=== PATIENT | male | born 1955 | race Caucasian/White ===

== ENCOUNTER 2022-06-16 09:28 | Emergency (ER) | payer MEDICARE, SELFPAY ==
[2022-06-16 09:50] VITALS: BP 160/111; PULSE 68; RESP 18; TEMP 36.7; O2SAT 95
[2022-06-16 10:00] VITALS: BP 146/89
--- NOTE | 2022-06-16 10:04 | CRLHL7_ITS ---
For Patients: As a result of the Century Cures Act, medical imaging exams and procedure reports are released immediately into your electronic medical record. You may view this report before your referring provider. If you have questions, please contact your health care provider. INDICATION: Chest pain COMPARISON: 06/04/2020 TECHNIQUE: PA and lateral views of the chest were acquired FINDINGS: TUBES AND LINES: None. HEART AND MEDIASTINUM: The heart size is normal. The mediastinal contour appears normal for patient age. LUNGS AND PLEURAL SPACES: The lungs are hyperinflated but otherwise unremarkable in appearance. This may be due to COPD which should be considered in the appropriate clinical setting.The pleural spaces are unremarkable. OSSEOUS STRUCTURES: Age-appropriate appearance. No acute focal finding. IMPRESSION: Hyperinflated but otherwise unremarkable appearing lungs. Dictated by Chip Jain MD @ 06/16/2022 10:43:03 AM (Electronically Signed)
[2022-06-16 10:06] VITALS: BP 148/80; PULSE 68; RESP 18; TEMP 36.7; O2SAT 95; BMI 28.2
[2022-06-16 11:03] LABS: Basophils Percent Auto 0.5 % (0.0-3.0); Eosinophils Percent Auto 1.7 % (0.0-7.0); Hematocrit 41.1 % (37.0-53.0); Hemoglobin* 13.8 gm/dL (13.5-17.5); Immature Granulocytes Abs Auto 0.01 K/uL (0.00-0.30); Lymphocytes Percent Auto 20.4 % (20-44); Mean Corpuscular HGB Conc 34 gm/dL (32-36); Mean Corpuscular Hemoglobin 31 pg (26-34); Mean Corpuscular Volume 91 fL (80-100); Monocytes Percent Auto 12.9 % (0.0-11.0); Neutrophils Percent Auto 64.3 % (42.0-72.0); Platelet Count* 149 K/uL (140-440); RDW Coefficient of Variation % 13.5 % (11.5-15.5); Red Blood Count 4.53 m/uL (4.30-5.90); White Blood Count* 4.11 K/uL (4.50-11.00)
[2022-06-16 11:09] LABS: Slide Review Reflex No
[2022-06-16 11:23] LABS: INR 1.01 (0.91-1.10); Prothrombin Time 13.7 Seconds
[2022-06-16 11:24] LABS: Chloride* 106 mmol/L (96-114); Partial Thromboplastin Time* 29 Seconds (23-33); Potassium* 4.7 mmol/L (3.6-5.1); Sodium* 137 mmol/L (135-149)
[2022-06-16 11:26] LABS: D Dimer Quantitative* 0.83 ug/ml (0.00-0.50)
[2022-06-16 11:27] LABS: Blood Urea Nitrogen* 16 mg/dL (7-30); Calcium* 8.8 mg/dL (8.4-10.6); Carbon Dioxide* 25 mmol/L (20-32); Creatinine* 0.9 mg/dL (0.5-1.5); Est. Creatinine Clearance* 85.63; Estimated Glomerular Filt Rate 95 ml/min; Glucose* 104 mg/dL (60-115)
[2022-06-16 11:30] VITALS: BP 134/86
[2022-06-16 11:37] LABS: NT Pro B Type NatriureticPept* 55 PG/mL (0-125)
[2022-06-16 11:42] LABS: PCR FLU A Negative PCR FLU A (Negative); PCR FLU B Negative PCR FLU B (Negative); PCR RSV Negative PCR RSV (Negative)
[2022-06-16 11:51] LABS: SARS PCR* Negative SARS-CoV-2 (Negative)
[2022-06-16 12:00] VITALS: BP 131/85
--- NOTE | 2022-06-16 12:21 | CRLHL7_ITS ---
For Patients: As a result of the Century Cures Act, medical imaging exams and procedure reports are released immediately into your electronic medical record. You may view this report before your referring provider. If you have questions, please contact your health care provider. INDICATION: Chest pain and elevated D-dimer TECHNIQUE: CT chest PE was acquired with 111 cc Isovue 370 intravenous contrast. COMPARISON: Chest CT 06/04/2020 FINDINGS: Heart and vasculature: Contrast opacification of the pulmonary arterial tree is adequate. No sign of pulmonary embolism. Ascending thoracic aorta measures 4.2 centimeters. No pericardial effusion. Lungs and pleural: No suspicious nodules or infiltrates. No pleural effusions, pleural thickening, or pneumothorax. Lymph nodes/mediastinum: No mediastinal, hilar, or axillary adenopathy. Chest wall: No masses. Upper abdomen: Cholelithiasis without pericholecystic inflammation. Stable 8 millimeter hypodense hepatic lesion right lobe. Bones: Mild degenerative disc disease thoracic spine. IMPRESSION: 1. No evidence of pulmonary embolus. 2. Mild fusiform enlargement of the ascending thoracic aorta at 4.2 centimeters, minimally increased from the prior exam (prior 4.0 cm). 3. Cholelithiasis without CT evidence of cholecystitis. Please note that all CT scans at this facility use dose modulation, iterative reconstruction, and/or weight-based dosing when appropriate to reduce radiation dose to as low as reasonably achievable. Dictated by Naresh Lindo MD @ 06/16/2022 2:30:47 PM (Electronically Signed)
[2022-06-16] MEDS: 0.9 % SODIUM CHLORIDE 500 ML 500 ML IV (12:53)
[2022-06-16 14:23] VITALS: BP 155/95
--- NOTE | 2022-06-16 17:18 | ED_ITS ---
HPI - Chest Pain General Date Seen: 06/16/22 Chief Complaint: Chest Pain Stated Complaint: Heart issues--high bp, tightness in chest Time Seen by Provider: 06/16/22 09:53 Source: patient Mode of arrival: ambulatory Limitations: no limitations History of Present Illness HPI narrative: Mr. Miller is a very nice gentleman who presents here for evaluation of left- sided arm discomfort, and some chest fluttering this that he has had. Noted last night that he had the left arm discomfort approximately 4:00 a.m., along with aflutter anus that comes and goes in his chest. He has actually had the fluttering is for 2-3 days, always associated with him not doing anything, never associated with exertion. He has had previous workups for chest pain had been negative, he has no personal history of cardiac stenting, or cardiac issues. Risk factors are really minimal he has never before smoke, no hypertension, no diabetes, no hyperlipidemia, and no family history of issues. No personal hist ory is of note of pulmonary emboli DVTs or other issues also. This came on while he was sleeping, and there is no exertion associated with this. He does however have a history of left-sided arm discomfort, that he has been working with a emr trainer, and wonders if this might be secondary to this. Related Data Home Medications Medication Instructions Recorded Confirmed atorvastatin 20 mg tablet mg 06/16/22 bupropion HCl 150 mg 24 hr tablet, mg PO 06/16/22 extended release fluoxetine 20 mg capsule mg 06/16/22 gabapentin 300 mg capsule mg 06/16/22 multivitamin 1 tab PO DAILY 06/16/22 06/16/22 omega-3 fatty acids 500 mg PO DAILY 06/16/22 06/16/22 oxycodone 5 mg tablet (Roxicodone) 5 mg PO Q4-6H PRN 06/16/22 06/16/22 rizatriptan 10 mg tablet (Maxalt) 10 mg PO Q2-4H PRN 06/16/22 06/16/22 Allergies Allergy/AdvReac Type Severity Reaction Status Date / Time No Known Drug Allergies Allergy Verified 06/16/22 10:02 Review of Systems Status of ROS Reports: 10 or more systems reviewed and unremarkable except as noted in History and below PFSH PFSH Social History Smoking Status: Never smoker Do you use any of these nicotine containing products: None Second hand tobacco smoke exposure: No How often do you have a drink containing alcohol: never How often do you have six or more drinks on one occasion: Never AUDIT-C Alcohol total score: 0 Non-prescribed substance use: denies use service: No Exam Narrative Exam Narrative: Patient is a very nice gentleman in no apparent distress, pupils are equal round reactive to light, he is oriented x3, cranial nerves 3-12 are normal, TMs normal oropharynx normal, neck is supple, JVP is flat carotid upstrokes are equal, there is no lymphadenopathy anterior posterior chains. Chest is good air entry bilaterally no wheezing crackles noted easy respirations are noted. Heart sounds no clicks murmurs or gallops, S1-S2 are normal. His abdomen is soft and obese, he is easily freely reducible umbilical hernia, but otherwise normal. With normal bowel sounds no organomegaly, and no tenderness to palpation. He has no edema bilaterally, normal muscle bulk is upper lower extremities, was all extremities independently and well. With no palpable tenderness noted over his left arm. Const Vital Signs, click to edit/add: Vital Signs - 24 hr 06/16/22 10:06 06/16/22 09:50 06/16/22 10:00 Temperature 98.0 F 98.0 F Pulse Rate [Right Pulse Oximeter] 68 68 Respiratory Rate 18 18 Blood Pressure [Right Upper Arm] 148/80 H 160/111 H 146/89 H Pulse Oximetry 95 95 Oxygen Delivery Method Room Air Room Air 06/16/22 11:30 06/16/22 12:00 06/16/22 14:23 Temperature Pulse Rate [Right Pulse Oximeter] Respiratory Rate Blood Pressure [Right Upper Arm] 134/86 131/85 155/95 H Pulse Oximetry Oxygen Delivery Method Course Vital Signs Vital signs: Initial Vital Signs Temperature 98.0 F 06/16/22 09:50 Temperature Source Temporal Artery Scan 06/16/22 09:50 Pulse Rate 68 06/16/22 09:50 Respiratory Rate 18 06/16/22 09:50 Blood Pressure 160/111 H 06/16/22 09:50 Blood Pressure Mean 127 06/16/22 09:50 Blood Pressure Position Sitting 06/16/22 09:50 Pulse Oximetry 95 06/16/22 09:50 Oxygen Delivery Method 06/16/22 09:50 Vital Signs Temperature 98.0 F 06/16/22 09:50 Pulse Rate 68 06/16/22 09:50 Respiratory Rate 18 06/16/22 09:50 Blood Pressure 160/111 H 06/16/22 09:50 Pulse Oximetry 95 06/16/22 09:50 Oxygen Delivery Method 06/16/22 09:50 Temperature 98.0 F 06/16/22 10:06 Pulse Rate 68 06/16/22 10:06 Respiratory Rate 18 06/16/22 10:06 Blood Pressure 155/95 H 06/16/22 14:23 Pulse Oximetry 95 06/16/22 10:06 Oxygen Delivery Method 06/16/22 10:06 MDM - Chest Pain MDM Narrative Medical decision making narrative: During the evaluation of this patient I considered multiple differential diagnosis is. The life-threatening differential diagnosis include coronary disease/OR, pulmonary embolism, pneumothorax, pneumonia, and aortic dissection. Other differential diagnosis included but were not limited to pericarditis, myocarditis, chest wall pain, GERD, esophageal rupture, rib fracture contusion, pleurisy, as well as other etiologies. Medical Records Data Attestation: I reviewed the patient's medical records. Lab Data Attestation: I reviewed the patient's lab results. Labs: Lab Results 06/16/22 06/16/22 06/16/22 Range/Units 10:06 10:45 10:45 WBC 4.11 L (4.50-11.00) K/uL RBC 4.53 (4.30-5.90) m/uL Hgb 13.8 (13.5-17.5) gm/dL Hct 41.1 (37.0-53.0) % MCV 91 (80-100) fL MCH 31 (26-34) pg MCHC 34 (32-36) gm/dL RDW Coeff of Gucci 13.5 (11.5-15.5) % Plt Count 149 (140-440) K/uL Neut % (Auto) 64.3 (42.0-72.0) % Lymph % (Auto) 20.4 (20-44) % [place] % (Auto) 12.9 H (0.0-11.0) % Eos % (Auto) 1.7 (0.0-7.0) % Baso % (Auto) 0.5 (0.0-3.0) % Neut # (Auto) 2.60 (1.7-7.0) K/uL Lymph # (Auto) 0.80 L (0.90-2.90) K/uL [place] # (Auto) 0.50 (0.00-0.90) K/UL Eos # (Auto) 0.10 (0.00-0.50) K/uL Baso # (Auto) 0.00 (0.00-0.30) K/uL Abs Immat Gran (auto) 0.01 (0.00-0.30) K/uL INR 1.01 (0.91-1.10) APTT 29 (23-33) Seconds D-Dimer Quant (PE/DVT) 0.83 H (0.00-0.50) ug/ml Sodium (135-149) mmol/L Potassium (3.6-5.1) mmol/L Chloride (96-114) mmol/L Carbon Dioxide (20-32) mmol/L BUN (7-30) mg/dL Creatinine (0.5-1.5) mg/dL Estimated Creat Clear Estimated GFR ml/min Glucose (60-115) mg/dL Calcium (8.4-10.6) mg/dL NT-Pro-B Natriuret Pep (0-125) PG/mL SARS-CoV-2 (PCR) (Negative) Influenza Type A (PCR) (Negative) Influenza Type B (PCR) (Negative) RSV (PCR) (Negative) POC Troponin I 0.00 L (0.01-0.04) ng/ml 06/16/22 06/16/22 Range/Units 10:45 10:45 WBC (4.50-11.00) K/uL RBC (4.30-5.90) m/uL Hgb (13.5-17.5) gm/dL Hct (37.0-53.0) % MCV (80-100) fL MCH (26-34) pg MCHC (32-36) gm/dL RDW Coeff of Gucci (11.5-15.5) % Plt Count (140-440) K/uL Neut % (Auto) (42.0-72.0) % Lymph % (Auto) (20-44) % [place] % (Auto) (0.0-11.0) % Eos % (Auto) (0.0-7.0) % Baso % (Auto) (0.0-3.0) % Neut # (Auto) (1.7-7.0) K/uL Lymph # (Auto) (0.90-2.90) K/uL [place] # (Auto) (0.00-0.90) K/UL Eos # (Auto) (0.00-0.50) K/uL Baso # (Auto) (0.00-0.30) K/uL Abs Immat Gran (auto) (0.00-0.30) K/uL INR (0.91-1.10) APTT (23-33) Seconds D-Dimer Quant (PE/DVT) (0.00-0.50) ug/ml Sodium 137 (135-149) mmol/L Potassium 4.7 (3.6-5.1) mmol/L Chloride 106 (96-114) mmol/L Carbon Dioxide 25 (20-32) mmol/L BUN 16 (7-30) mg/dL Creatinine 0.9 (0.5-1.5) mg/dL Estimated Creat Clear 85.63 Estimated GFR 95 ml/min Glucose 104 (60-115) mg/dL Calcium 8.8 (8.4-10.6) mg/dL NT-Pro-B Natriuret Pep 55 (0-125) PG/mL SARS-CoV-2 (PCR) Negative SARS-CoV-2 (Negative) Influenza Type A (PCR) Negative PCR FLU A (Negative) Influenza Type B (PCR) Negative PCR FLU B (Negative) RSV (PCR) Negative PCR RSV (Negative) POC Troponin I (0.01-0.04) ng/ml Imaging Data CT scan - chest: Attestation: I have reviewed the pertinent imaging results. My impression: CT scan of his chest showed no acute findings, his aorta was slightly increased in size from 4.0 cm to 4.2 cm. Radiologist's impression: See Radiology impression nothing acute, I did tell him about the enlarged aorta that he needs to follow up with primary care with. Discharge Plan Discharge Clinical Impression: Atypical chest pain Patient Disposition: Home, Self-Care Condition: Stable Instructions: Chest Pain (DC) Additional Instructions: There is no evidence of pulmonary embolus or blood clot on the CT, all your lab tests are otherwise normal. The CT scan did show that there has been some mild enlargement of your aorta from 4.0-4.2, we typically watch this and follow-up CTs, with Cardiology. I would recommend you discussed with the primary care physician, return here for worsening signs and symptoms, but I wonder about more of arms issue associated with the pain that you had. Prescriptions: No Action atorvastatin 20 mg tablet Label Comments: TAKE 1 TABLET (20 MG) BY MOUTH ONCE DAILY. gabapentin 300 mg capsule Label Comments: TAKE 1 CAPSULE(S) BY MOUTH 3 TIMES DAILY FOR 90 DAYS fluoxetine 20 mg capsule Label Comments: TAKE 2 CAPSULE(S) BY MOUTH ONCE DAILY FOR 90 DAYS bupropion HCl 150 mg tablet extended release 24 hr PO Label Comments: TAKE 2 TABLET(S) BY MOUTH ONCE DAILY FOR 90 DAYS oxycodone [Roxicodone] 5 mg tablet 5 mg PO Q4-6H PRN rizatriptan [Maxalt] 10 mg tablet 10 mg PO Q2-4H PRN Rx Instructions: do not exceed 3 doses per 24 hrs multivitamin Tablet 1 tab PO DAILY omega-3 fatty acids Capsule 500 mg PO DAILY Follow Up/Referrals: Sanya Shah MD [Primary Care Provider] - Stand Alone Forms: [employer] Info Instructions
== END 2022-06-16 15:19 | disposition home or self-care (01) ==
PROVIDERS: Emergency Provider Family Medicine; PCP Family Medicine
DX: R07.89 Other chest pain (principal); Z13.0 Encounter for screening for diseases of the blood and blood-forming organs and certain disorders involving the immune mechanism
CPT/HCPCS: 36415; 71046; 71260; 80048; 83880; 84484; 85025; 85379; 85610; 85730; 87502; 87634; 87635; 93005; 96360; 99284; J7120; Q9967

== ENCOUNTER 2022-08-03 07:52 | Outpatient (CLI) | payer MEDICARE, SELFPAY ==
--- NOTE | 2022-08-03 09:35 | W.ANESCHARGE ---
Anesthesia Charges Start Date/Time Anesthesia Start Date: 08/03/22 Anesthesia Start Time: 09:05 Stop Date/Time Anesthesia Stop Date: 08/03/22 Anesthesia Stop Time: : Summary Emergency: No
--- NOTE | 2022-08-03 09:38 | W.ANESCHARGE ---
Anesthesia Charges Start Date/Time Anesthesia Start Date: 08/03/22 Anesthesia Start Time: 09:05 Stop Date/Time Anesthesia Stop Date: 08/03/22 Anesthesia Stop Time: : Summary Emergency: No
== END 2022-08-03 07:53 | disposition home or self-care (01) ==
LOC: OP CLINIC 07:52
PROVIDERS: PCP Family Medicine; Visit Provider Internal Medicine Gastroenterology
DX: Z12.11 Encounter for screening for malignant neoplasm of colon (principal); K62.1 Rectal polyp; K57.30 Diverticulosis of large intestine without perforation or abscess without bleeding; Q43.8 Other specified congenital malformations of intestine; Z98.0 Intestinal bypass and anastomosis status
CPT/HCPCS: 00811; 45385; 88305

== ENCOUNTER 2022-08-06 06:59 | Outpatient (CLI) | payer MEDICARE, SELFPAY ==
--- NOTE | 2022-08-06 07:15 | CRLHL7_ITS ---
For Patients: As a result of the Century Cures Act, medical imaging exams and procedure reports are released immediately into your electronic medical record. You may view this report before your referring provider. If you have questions, please contact your health care provider. INDICATION: Pain. Assess for bursitis. COMPARISON: MRI 20 January 2021. TECHNIQUE: Axial PD and T2, coronal PD and STIR and sagittal PD and T2 left shoulder sequences. FINDINGS: Rotator cuff: Full-thickness tear of the supraspinatus retracted just over 3 cm with a tapered appearance of the proximal retracted tendon margin. Full-thickness tearing in the proximal half to 2/3 of the infraspinatus within distal remnant prominently thinned from marginal degenerative tearing. Relatively normal caliber posterior 3rd throughout. Some mucoid intermediate signal tendinosis in the substance and articular surface posteriorly. Intact teres minor. Prominent tendinopathy and interstitial tearing in the subscapularis. Grade 2 muscle atrophy infraspinatus. Grade 1 muscle atrophy supraspinatus. - Acromioclavicular joint and coracoacromial arch: Curved type 2 acromial undersurface. Acromial humeral distance mildly narrowed to 5 mm due to slight superior subluxation humeral head. Mild to near moderate degenerative arthrosis of the AC joint. Small effusion but no inferior osteophyte. No clavicular dislocation or fracture. Subcoracoid interval is patent. - Biceps labral complex: Some minor degenerative blunting and volume loss in the inferior, posterior and a lesser degree superior labrum. No linear tear or displaced labral tissue. Intact biceps anchor. Appropriately located biceps tendon. Fluid in the tendon sheath. - Glenohumeral joint: Minor superior subluxation. Heterogeneous signal and irregular grade 2 thinning and grade 3 to grade 4 fissuring inferior glenoid margin with subchondral cysts at the anterior inferior margin. Small effusion. No capsulitis. - Bones and soft tissues: Thin line of fluid and synovitis in the subacromial/subdeltoid bursa. Deltoid bulk and signal normal for age and body habitus. Glenoid version is neutral. Visualized axilla is clear. IMPRESSION: 1. Interval development of full-thickness tearing of supraspinatus and majority of the infraspinatus. Superior subluxation humeral head. Atrophy of infraspinatus greater than supraspinatus. 2. Progressive tendinopathy and interstitial low grade tearing subscapularis. 3. Mild chronic AC DJD. 4. Progressed glenohumeral osteoarthritis. 5. Increased degenerative marginal tearing of the labrum. Dictated by Mark Dow MD @ 08/06/2022 2:02:56 PM (Electronically Signed)
== END 2022-08-06 07:00 | disposition home or self-care (01) ==
LOC: MRI 07:00
PROVIDERS: PCP Family Medicine; Visit Provider Family Medicine
DX: M75.52 Bursitis of left shoulder (principal); M19.012 Primary osteoarthritis, left shoulder; S49.92XS Unspecified injury of left shoulder and upper arm, sequela; S43.402A Unspecified sprain of left shoulder joint, initial encounter
CPT/HCPCS: 73221

== ENCOUNTER 2022-09-08 08:21 | Observation (INO) | payer MEDICARE, SELFPAY ==
[2022-09-08] VITALS (13 sets, daily range): BP systolic 98–150; BP diastolic 53–89; PULSE 71–85; RESP 16–20; TEMP 37.1–37.9; O2SAT 95–98; BMI 47.5
--- NOTE | 2022-09-08 09:19 | ED_ITS ---
HPI - General Adult General Time Seen by Provider: 09:19 Date Seen: 09/08/22 Chief complaint: Extremity Pain/Injury, Lower Stated complaint: Infection left leg Time Seen by Provider: 09/08/22 09:19 Source: patient and RN notes reviewed Mode of arrival: ambulatory Limitations: no limitations History of Present Illness HPI narrative: Patient is a 67-year-old male coming in with concern of fever and possible cellulitis of his left lower extremity. He stepped on a nail in the center of the ball of his foot on Wednesday, 2 days ago. Started having fevers last night. He has warmth in his left calf that is concerning him for cellulitis. He states he has had a history of cellulitis before. There is pain, redness and warmth in his left posterior calf. Not so much pain in the foot. He also has had some respiratory symptoms. He started with a sore throat on . Was in to the clinic on Wednesday and saw Dr. Shah for a preoperative evaluation for upcoming left rotator cuff repair. This surgery is supposed to happen September 15. He started coughing on Wednesday. At this appointment, his lungs were clear, no further testing was done. He has started to cough up mucus. Again fever started last night. He is complaining of significant left shoulder pain. This is the shoulder that is affected. He is off ibuprofen in off his oxycodone prior to the surgery. No known history of thromboembolic disease before but does note that he has had cellulitis in his legs before. Last Tdap in records 05/23/2020. Related Data Home Medications Medication Instructions Recorded Confirmed atorvastatin 20 mg tablet 40 mg 06/16/22 09/02/22 bupropion HCl 150 mg 24 hr tablet, 150 mg PO 06/16/22 09/02/22 extended release fluoxetine 20 mg capsule 20 mg 06/16/22 09/02/22 gabapentin 300 mg capsule 300 mg TID 06/16/22 09/02/22 multivitamin 1 tab PO DAILY 06/16/22 09/02/22 oxycodone 5 mg tablet (Roxicodone) 5 mg PO Q4-6H PRN 06/16/22 09/02/22 rizatriptan 10 mg tablet (Maxalt) 10 mg PO Q2-4H PRN 06/16/22 09/08/22 Previous Rx's Medication Instructions Recorded celecoxib 100 mg capsule (Celebrex) 100 mg PO BID PRN pain #60 caps 08/25/22 amoxicillin 875 mg tablet 875 mg PO BID 10 days #20 tabs 09/08/22 doxycycline monohydrate 100 mg 100 mg PO BID 10 days #20 tabs 09/08/22 tablet Allergies Allergy/AdvReac Type Severity Reaction Status Date / Time No Known Drug Allergies Allergy Verified 09/08/22 08:54 Review of Systems Status of ROS: Reports: 10 or more systems reviewed and unremarkable except as noted in History and below [facility] Medical History Depression GERD (gastroesophageal reflux disease) High cholesterol MRSA (methicillin resistant staph aureus) culture positive Sleep apnea Surgical History History of appendectomy History of carpal tunnel surgery of left wrist (10/08/04) History of elbow surgery (02/29/20) History of left knee replacement History of surgery on arm Previous back surgery S/P left knee arthroscopy (01/25/08) S/P ORIF (open reduction internal fixation) fracture (08/07/19) S/P right knee arthroscopy (06/23/06) Status post right knee replacement Social History Smoking Status: Light tobacco smoker What tobacco products do you use: cigars and pipe Do you use any of these nicotine containing products: None Second hand tobacco smoke exposure: No How often do you have a drink containing alcohol: monthly or less How often do you have six or more drinks on one occasion: Never AUDIT-C Alcohol total score: 1 Non-prescribed substance use: denies use service: No Exam Const: Vital Signs, click to edit/add: Vital Signs - 24 hr 09/08/22 08:51 09/08/22 09:37 09/08/22 09:37 Temperature 99.2 F Pulse Rate [Pulse Oximeter] 81 72 Respiratory Rate 16 16 Blood Pressure [Ri ght Upper Arm] 135/85 117/74 Pulse Oximetry 97 96 96 Oxygen Delivery Me thod Room Air Room Air 09/08/22 11:07 09/08/22 12:00 Temperature 98.8 F Pulse Rate [Pulse Oximeter] 85 73 Respiratory Rate 16 16 Blood Pressure [[facility] Upper Arm] 120/79 112/69 Pulse Oximetry 98 98 Oxygen Delivery Me thod Room Air Room Air Documenting provider has reviewed patient's vital signs: yes Common normals: no apparent distress, oriented x3, no limitations, healthy appearing and alert General appearance: cooperative and well kempt Nutritional appearance: obese Other: Seems to have discomfort with movement, states it is in his left shoulder. HENMT: Common normals: normocephalic, head/scalp atraumatic, hearing grossly normal bilaterally, external ears normal, external nose normal, nasal mucous membranes and turbinates normal, moist oral mucous membranes, oropharynx normal, dentition normal and gingiva normal Head and scalp: normocephalic and atraumatic Nose: external nose normal and nasal mucous membranes and turbinates normal External ear: external ears normal Eye: Common normals: PERRL, EOMs intact bilaterally, conjunctivae normal and no scleral icterus Conjunctiva: conjunctiva(e) normal Pupil: PERRL Neck & C-Spine: Common normals: full ROM (Has a thick neck), no lymphadenopathy, supple and no meningeal signs Chest: Common normals: inspection of chest normal Resp: Common normals: normal respiratory effort, no retractions, no use of accessory muscles and clear to auscultation bilaterally Auscultation: clear to auscultation bilaterally Cardio: Common normals: regular rate, regular rhythm, S1 normal heart sound, S2 normal heart sound, no gallops, no clicks, no murmurs and no rub Rate: regular rate Rhythm: regular rhythm Heart sounds: S1 normal and S2 normal GI: Common normals: Normal to inspection, nondistended, normoactive bowel sounds present, soft to palpation, non-tender, no hepatosplenomegaly and no masses Palpation: soft and no hepatosplenomegaly Extremity: Other: Has hemosiderin staining of both lower extremities, no significant pitting edema right now. Do not see any erythema over the plantar surface of his left foot. On the posterior aspect of his left calf, there is erythema and warmth, some tenderness. No vesicles. Lower extremities just seem chronically thickened but no appreciable pitting edema that I can demonstrate today. Neuro: Common normals: oriented x3, CN's II-XII intact bilaterally, moves all extremities, no focal motor deficits and no sensory deficits noted Sensorium/orientation: alert Meningeal signs: no meningeal signs Psych: Appearance: well kempt Course Course Hospital Course: Fever could certainly stemming from a cellulitis or upper respiratory illness. Triple swab was collected by nursing staff and is pending. Will also do a portable chest x-ray, obtain appropriate blood work. With this left calf, will consider thrombo embolic disease and obtain a venous ultrasound. Patient at this time is hemodynamically stable. Reevaluation(s) Reevaluation #1: Reviewed with patient that his ultrasound per the welfare service aide is negative for DVT. Thus, it would appear that he has cellulitis in this left calf. He is had staph and strep infections before. He has had an infected knee joint with MRSA before, ended up with a PICC line and vancomycin. From the sounds of it this was a prosthetic knee, knee components were pulled for 3 months while he was treated. Thus, am going to start with vancomycin. Time: 11:15 Reevaluation #2: Patient feels comfortable going home, will put on oral antibiotics, plan on amoxicillin and doxycycline for coverage. Has been afebrile here. Clinically looks stable and appropriate for outpatient management at this time. He understands to elevate this leg. We did touch on his depression, lost after 4 years of pancreatic cancer, lost uncle that he was close to and another relative dying, all in this past year. He states that he has good support, acknowledges depression but is not suicidal. Taking antidepressant. Time: 12:54 Vital Signs Vital signs: Initial Vital Signs Temperature 99.2 F 09/08/22 08:51 Temperature Source Temporal Artery Scan 09/08/22 08:51 Pulse Rate 81 09/08/22 08:51 Pulse Rhythm 09/08/22 08:51 Pulse Strength 3+ Normal 09/08/22 08:51 Respiratory Rate 16 09/08/22 08:51 Blood Pressure 135/85 09/08/22 08:51 Blood Pressure Mean 101 09/08/22 08:51 Blood Pressure Position Sitting 09/08/22 08:51 Pulse Oximetry 97 09/08/22 08:51 Oxygen Delivery Method 09/08/22 08:51 Vital Signs Temperature 99.2 F 09/08/22 08:51 Pulse Rate 81 09/08/22 08:51 Respiratory Rate 16 09/08/22 08:51 Blood Pressure 135/85 09/08/22 08:51 Pulse Oximetry 97 09/08/22 08:51 Oxygen Delivery Method 09/08/22 08:51 Temperature 98.8 F 09/08/22 11:07 Pulse Rate 73 09/08/22 12:00 Respiratory Rate 16 09/08/22 12:00 Blood Pressure 112/69 09/08/22 12:00 Pulse Oximetry 98 09/08/22 12:00 Oxygen Delivery Method 09/08/22 12:00 Medical Decision Making Lab Data Lab results reviewed: Yes I reviewed the patient's lab results Labs: Lab Results 09/08/22 09/08/22 09/08/22 Range/Units 09:37 09:37 09:37 WBC 11.76 H (4.50-11.00) K/uL RBC 4.34 (4.30-5.90) m/uL Hgb 12.8 L (13.5-17.5) gm/dL Hct 38.9 (37.0-53.0) % MCV 90 (80-100) fL MCH 30 (26-34) pg MCHC 33 (32-36) gm/dL RDW Coeff of Gucci 13.4 (11.5-15.5) % Plt Count 152 (140-440) K/uL Neut % (Auto) 85.7 H (42.0-72.0) % Lymph % (Auto) 4.8 L (20-44) % [place]upe % (Auto) 9.1 (0.0-11.0) % Eos % (Auto) 0.1 (0.0-7.0) % Baso % (Auto) 0.2 (0.0-3.0) % Neut # (Auto) 10.10 H (1.7-7.0) K/uL Lymph # (Auto) 0.60 L (0.90-2.90) K/uL [place] # (Auto) 1.10 H (0.00-0.90) K/UL Eos # (Auto) 0.00 (0.00-0.50) K/uL Baso # (Auto) 0.00 (0.00-0.30) K/uL Abs Immat Gran (auto) 0.00 (0.00-0.30) K/uL Imm/Tot Granulo (auto) 0.1 % Sodium 137 (135-149) mmol/L Potassium 3.9 (3.6-5.1) mmol/L Chloride 108 (96-114) mmol/L Carbon Dioxide 23 (20-32) mmol/L BUN 14 (7-30) mg/dL Creatinine 0.8 (0.5-1.5) mg/dL Estimated Creat Clear 80.83 Estimated GFR 98 ml/min Glucose 98 (60-115) mg/dL Lactate 1.0 (0.5-1.9) mmol/L Calcium 8.5 (8.4-10.6) mg/dL C-Reactive Protein 5.6 H (0.5-1.0) mg/dL SARS-CoV-2 (PCR) (Negative) Influenza Type A (PCR) (Negative) Influenza Type B (PCR) (Negative) RSV (PCR) (Negative) 09/08/22 Range/Units Unknown WBC (4.50-11.00) K/uL RBC (4.30-5.90) m/uL Hgb (13.5-17.5) gm/dL Hct (37.0-53.0) % MCV (80-100) fL MCH (26-34) pg MCHC (32-36) gm/dL RDW Coeff of Gucci (11.5-15.5) % Plt Count (140-440) K/uL Neut % (Auto) (42.0-72.0) % Lymph % (Auto) (20-44) % [place] % (Auto) (0.0-11.0) % Eos % (Auto) (0.0-7.0) % Baso % (Auto) (0.0-3.0) % Neut # (Auto) (1.7-7.0) K/uL Lymph # (Auto) (0.90-2.90) K/uL [place] # (Auto) (0.00-0.90) K/UL Eos # (Auto) (0.00-0.50) K/uL Baso # (Auto) (0.00-0.30) K/uL Abs Immat Gran (auto) (0.00-0.30) K/uL Imm/Tot Granulo (auto) % Sodium (135-149) mmol/L Potassium (3.6-5.1) mmol/L Chloride (96-114) mmol/L Carbon Dioxide (20-32) mmol/L BUN (7-30) mg/dL Creatinine (0.5-1.5) mg/dL Estimated Creat Clear Estimated GFR ml/min Glucose (60-115) mg/dL Lactate (0.5-1.9) mmol/L Calcium (8.4-10.6) mg/dL C-Reactive Protein (0.5-1.0) mg/dL SARS-CoV-2 (PCR) Negative SARS-CoV-2 (Negative) Influenza Type A (PCR) Negative PCR FLU A (Negative) Influenza Type B (PCR) Negative PCR FLU B (Negative) RSV (PCR) Negative PCR RSV (Negative) Imaging Data Chest x-ray: Attestation: I have reviewed the pertinent imaging results. My impression: A my preliminary read, I do not appreciate any acute consolidative pneumonia or any suggestion of any congestive heart failure, await Radiology over-read. Radiologist's impression: Patient: ANDERSON MARCELINE Facility:?[facility] Patient ID:?[id number] Site Patient ID:?[id number]. Site :?[id number] Study:?XRay Chest PORTABLE-09/08/2022 10:11:30 AM Ordering Physician:?Lorraine Tovar Final Report: INDICATION: FEVER, COUGH TECHNIQUE: Chest 1 view COMPARISON: None FINDINGS: Mild bronchiolitis present bilaterally. No consolidative density. No edema or effusion. No pneumothorax. Degenerative changes. Stable mediastinum. IMPRESSION: Mild bilateral bronchiolitis. Dictated by Mahesh Schaffer MD @ 09/08/2022 10:18:36 AM (Electronic Signature) Venous US: Attestation: I have reviewed the pertinent imaging results. Radiologist's impression: Patient: [facility] Facility:?[facility] Patient ID:?[id number] Site Patient ID:?[id number]. Site :?[id number] Study:?US Extremity Left LEV-09/08/2022 10:51:13 AM Ordering Physician:?Lorraine Tovar Final Report: INDICATION: Leg pain and swelling. TECHNIQUE: Ultrasound venous duplex lower left extremity. Compression venous exam was performed using barrett-scale, color Doppler, and spectral Doppler analysis. COMPARISON: None. FINDINGS: Deep veins: Sonographic imaging demonstrates the left common femoral, deep femoral, superficial femoral, popliteal, posterior tibial and the contralateral right common femoral veins to be fully compressible with normal color Doppler blood flow. Superficial veins: Greater saphenous vein is fully compressible. No popliteal cyst. IMPRESSION: Normal left lower extremity venous ultrasound, no sign of deep venous thrombosis. Dictated by Jose L Durham MD @ 09/08/2022 11:12:20 AM (Electronic Signature) Critical Care Time Critical Care Time Critical Care Time: No Discharge Plan Discharge Clinical Impression: Upper respiratory infection, Cellulitis Condition: Stable Instructions: Cellulitis (ED), Upper Respiratory Infection (ED) Additional Instructions: Start oral antibiotics today and take as prescribed. You will be on 2 antibiotics. Doxycycline should be good coverage for any lung bacterial infection. Chest x-ray did not show any evidence of pneumonia. Need to try to elevate this leg until your symptoms are improving. Recommend follow up in clinic within the next 1-3 days for recheck, make sure that you are still ok for surgery. If you are worsening at any point, do not feel that the cellulitis is improving, need to seek re-evaluation. Activity Level: Activity as Tolerated Prescriptions: New amoxicillin 875 mg tablet 875 mg PO BID 10 Days Qty: 20 0RF doxycycline monohydrate 100 mg tablet 100 mg PO BID 10 Days Qty: 20 0RF No Action atorvastatin 20 mg tablet 40 mg Label Comments: TAKE 1 TABLET (20 MG) BY MOUTH ONCE DAILY. gabapentin 300 mg capsule 300 mg TID Label Comments: TAKE 1 CAPSULE(S) BY MOUTH 3 TIMES DAILY FOR 90 DAYS fluoxetine 20 mg capsule 20 mg Label Comments: TAKE 2 CAPSULE(S) BY MOUTH ONCE DAILY FOR 90 DAYS bupropion HCl 150 mg tablet extended release 24 hr 150 mg PO Label Comments: TAKE 2 TABLET(S) BY MOUTH ONCE DAILY FOR 90 DAYS oxycodone [Roxicodone] 5 mg tablet 5 mg PO Q4-6H PRN rizatriptan [Maxalt] 10 mg tablet 10 mg PO Q2-4H PRN Rx Instructions: do not exceed 3 doses per 24 hrs multivitamin Tablet 1 tab PO DAILY celecoxib [Celebrex] 100 mg capsule 100 mg PO BID PRN (Reason: pain) Qty: 60 1RF Follow Up/Referrals: Sanya Shah MD [Primary Care Provider] - Stand Alone Forms: Sendmebox Info Instructions
--- NOTE | 2022-09-08 09:25 | CRLHL7_ITS ---
For Patients: As a result of the Cures Act, medical imaging exams and procedure reports are released immediately into your electronic medical record. You may view this report before your referring provider. If you have questions, please contact your health care provider. INDICATION: FEVER, COUGH TECHNIQUE: Chest 1 view COMPARISON: None FINDINGS: Mild bronchiolitis present bilaterally. No consolidative density. No edema or effusion. No pneumothorax. Degenerative changes. Stable mediastinum. IMPRESSION: Mild bilateral bronchiolitis. Dictated by Mahesh Schaffer MD @ 09/08/2022 10:18:36 AM (Electronically Signed)
--- NOTE | 2022-09-08 09:29 | CRLHL7_ITS ---
For Patients: As a result of the Century Cures Act, medical imaging exams and procedure reports are released immediately into your electronic medical record. You may view this report before your referring provider. If you have questions, please contact your health care provider. INDICATION: Leg pain and swelling. TECHNIQUE: Ultrasound venous duplex lower left extremity. Compression venous exam was performed using barrett-scale, color Doppler, and spectral Doppler analysis. COMPARISON: None. FINDINGS: Deep veins: Sonographic imaging demonstrates the left common femoral, deep femoral, superficial femoral, popliteal, posterior tibial and the contralateral right common femoral veins to be fully compressible with normal color Doppler blood flow. Superficial veins: Greater saphenous vein is fully compressible. No popliteal cyst. IMPRESSION: Normal left lower extremity venous ultrasound, no sign of deep venous thrombosis. Dictated by Jose L Durham MD @ 09/08/2022 11:12:20 AM (Electronically Signed)
[2022-09-08 10:00] LABS: Basophils Percent Auto 0.2 % (0.0-3.0); Eosinophils Percent Auto 0.1 % (0.0-7.0); Hematocrit 38.9 % (37.0-53.0); Hemoglobin* 12.8 gm/dL (13.5-17.5); Immature Granulocytes Pct Auto 0.1 %; Lymphocytes Percent Auto 4.8 % (20-44); Mean Corpuscular HGB Conc 33 gm/dL (32-36); Mean Corpuscular Hemoglobin 30 pg (26-34); Mean Corpuscular Volume 90 fL (80-100); Monocytes Percent Auto 9.1 % (0.0-11.0); Neutrophils Percent Auto 85.7 % (42.0-72.0); Platelet Count* 152 K/uL (140-440); RDW Coefficient of Variation % 13.4 % (11.5-15.5); Red Blood Count 4.34 m/uL (4.30-5.90); White Blood Count* 11.76 K/uL (4.50-11.00)
[2022-09-08 10:07] LABS: Slide Review Reflex No
[2022-09-08 10:28] LABS: Chloride* 108 mmol/L (96-114); Potassium* 3.9 mmol/L (3.6-5.1); Sodium* 137 mmol/L (135-149)
[2022-09-08 10:31] LABS: Carbon Dioxide* 23 mmol/L (20-32); Creatinine* 0.8 mg/dL (0.5-1.5); Est. Creatinine Clearance* 80.83; Estimated Glomerular Filt Rate 98 ml/min
[2022-09-08 10:32] LABS: Blood Urea Nitrogen* 14 mg/dL (7-30); Calcium* 8.5 mg/dL (8.4-10.6); Glucose* 98 mg/dL (60-115)
[2022-09-08 10:35] LABS: C Reactive Protein* 5.6 mg/dL (0.5-1.0)
[2022-09-08 11:31] LABS: PCR FLU A Negative PCR FLU A (Negative); PCR FLU B Negative PCR FLU B (Negative); PCR RSV Negative PCR RSV (Negative)
[2022-09-08 11:34] LABS: SARS PCR* Negative SARS-CoV-2 (Negative)
--- NOTE | 2022-09-08 13:56 | PC.NURSE ---
Patient now has a temp of 100.2. notified. She was going to contact the hospitalist. Heads up given to HS.
[2022-09-08] MEDS: PIPERACILLIN/TAZOBACTAM 3.375 GM in 0.9 % SODIUM CHLORIDE Mini-bag 100 ML IVPB ×2 (14:49→21:19)
[2022-09-08] MEDS: ACETAMINOPHEN 325 MG TABLET 975 MG PO (14:50)
[2022-09-08] MEDS: OXYCODONE 5 MG TABLET PO ×2 (14:50→22:46)
--- NOTE | 2022-09-08 15:43 | PM.IMHP1 ---
Hospitalist- H&P: HPI History of Present Illness Date Seen: 09/08/22 Chief complaint: Infection left leg Narrative: Kori Miller is a 67 year old male with history of recurrent left leg cellulitis presents with painful red swollen left leg and fever. Patient reports that he stepped on a nail through his shoe on Wednesday, 2 days ago. Yesterday started have some discomfort in his left leg primarily the calf. Last night he had a fever and today his left calf is ring it red and painful and swollen. His foot is not bothering him particularly. The nail went through his shoe into the mid plantar foot on the left. He has neuropathy and was not aware of stepping on the nail. He only discovered it when he found a lot of blood in his shoe when he took his shoe off. For the last 5 days he has also had upper respiratory infection with cough and congestion. He thinks that is a little better today than it was over the weekend. He is pending surgery for rotator cuff repair in 1 week for his right shoulder. This is scheduled with Dr. Christianson has been notified of his current illness. He does have previous history of leg cellulitis, always in the left leg. Review of Systems Narrative: He reports no other significant health concerns recently. [facility] Medical History (Updated 09/08/22 @ 15:55 by Aiden Aldrich MD) Depression GERD (gastroesophageal reflux disease) High cholesterol MRSA (methicillin resistant staph aureus) culture positive Sleep apnea Surgical History History of appendectomy History of carpal tunnel surgery of left wrist (10/08/04) History of elbow surgery (02/29/20) History of left knee replacement History of surgery on arm Previous back surgery S/P left knee arthroscopy (01/25/08) S/P ORIF (open reduction internal fixation) fracture (08/07/19) S/P right knee arthroscopy (06/23/06) Status post right knee replacement Family History (Updated 09/08/22 @ 15:48 by Aiden Aldrich MD) Mother Breast cancer Father Alcohol dependence Coronary artery disease Brother Stroke Social History (Updated 09/08/22 @ 15:50 by Aiden Aldrich MD) Narrative: Closest family are his son Emery and daughter Sandrita. He would designate both of them is healthcare power of commercial litigation attorney. Code status is full. He drinks 3 beers per weekend. Remote history of smoking a half pack of day for 25 years. Now occasionally smokes a pipe or cigar but not every day Smoking Status: Light tobacco smoker What tobacco products do you use: cigars and pipe Do you use any of these nicotine containing products: None Second hand tobacco smoke exposure: No How often do you have a drink containing alcohol: monthly or less How often do you have six or more drinks on one occasion: Never AUDIT-C Alcohol total score: 1 Non-prescribed substance use: denies use service: No Meds Home Medications and Allergies Home Medications Medication Instructions Recorded Confirmed Type atorvastatin 20 mg tablet 40 mg PO HS 06/16/22 09/08/22 History bupropion HCl 150 mg 24 hr tablet, 300 mg PO DAILY 06/16/22 09/08/22 History extended release gabapentin 300 mg capsule 300 mg PO TID 06/16/22 09/08/22 History multivitamin 1 tab PO DAILY 06/16/22 09/08/22 History oxycodone 5 mg tablet (Roxicodone) 5 mg PO Q4-6H PRN 06/16/22 09/08/22 History rizatriptan 10 mg tablet (Maxalt) 10 mg PO Q2-4H PRN 06/16/22 09/08/22 History duloxetine 20 mg capsule,delayed 40 mg PO DAILY 09/08/22 09/08/22 History release duloxetine 60 mg capsule,delayed 60 mg PO DAILY 09/08/22 09/08/22 History release Allergies Allergy/AdvReac Type Severity Reaction Status Date / Time No Known Drug Allergies Allergy Verified 09/08/22 08:54 Exam Narrative: Exam Narrative: He is alert appears in no distress. He gives his own history. Eyes normal. Oropharynx with small airway. Otherwise normal. Neck is supple without mass or adenopathy. Respirations are clear to auscultation. Good air exchange all lung evans. Cardiovascular: S1, S2, regular rate and rhythm. No murmur gallop or rub. Abdomen: Bowel sounds active. Abdomen is soft without tenderness or mass. External genitalia normal. Extremities are normal except his left lower extremity where he has erythema over his left calf. This is a maculopapular area of erythema that extends from below the tibial tubercle over the anterior oliveros almost to the ankle. No involvement of the knee or ankle. It is tender to touch. Calf is quite tender to compression. He has mild to moderate edema. The foot itself is without erythema or tenderness. There is a puncture site in the middle of his metatarsal heads on the plantar surface. No obvious drainage or redness. Const: Vital Signs, click to edit/add: Vital Signs - 24 hr 09/08/22 08:51 09/08/22 09:37 09/08/22 09:37 Temperature 99.2 F Pulse Rate [Pulse Oximeter] 81 72 Respiratory Rate 16 16 Blood Pressure [Ri ght Upper Arm] 135/85 117/74 Pulse Oximetry 97 96 96 Oxygen Delivery Me thod Room Air Room Air 09/08/22 11:07 09/08/22 12:00 09/08/22 13:55 Temperature 98.8 F 100.2 F H Pulse Rate [Pulse Oximeter] 85 73 73 Respiratory Rate 16 16 16 Blood Pressure [Ri ght Upper Arm] 120/79 112/69 102/53 L Pulse Oximetry 98 98 98 Oxygen Delivery Me thod Room Air Room Air Room Air 09/08/22 12:30 09/08/22 13:00 09/08/22 13:30 Temperature Pulse Rate [Pulse Oximeter] 71 85 78 Respiratory Rate 16 16 16 Blood Pressure [Ri ght Upper Arm] 108/65 98/57 L 99/66 Pulse Oximetry 97 97 97 Oxygen Delivery Me thod Room Air Room Air Room Air 09/08/22 15:34 Temperature 99.4 F Pulse Rate [Pulse Oximeter] 78 Respiratory Rate 16 Blood Pressure [Ri ght Upper Arm] 113/66 Pulse Oximetry 98 Oxygen Delivery Me thod Room Air Hospitalist - H&P: Result Labs Labs: Short CBC 09/08/22 Range/Units 09:37 WBC 11.76 H (4.50-11.00) K/uL Hgb 12.8 L (13.5-17.5) gm/dL Hct 38.9 (37.0-53.0) % Plt Count 152 (140-440) K/uL BMP 09/08/22 09:37 Sodium 137 Potassium 3.9 Chloride 108 Carbon Dioxide 23 BUN 14 Creatinine 0.8 Glucose 98 Calcium 8.5 Assessment and Plan Assessment and plan (1) Cellulitis: Problem comment: Leg appears to be cellulitis typical of a strep infection without obvious purulence. The presence of a fever and a puncture wound in his foot will initiate broad-spectrum antibiotic coverage for MRSA and Pseudomonas and possibly narrow therapy depending on his response. Status: Acute (2) Puncture wound of skin from metal nail: Problem comment: Tetanus is up-to-date. Empiric initial treatment for Pseudomonas and MRSA Status: Acute (3) Upper respiratory infection: Problem comment: Improving Status: Acute (4) Arthritis of left acromioclavicular joint: Problem comment: Dr. Christianson to decide about proceeding to surgery next week. Status: Acute (5) Rotator cuff tear, left: Status: Acute (6) Sleep apnea: Problem comment: He will ask his children to bring in his CPAP Status: Acute Plan Hospitalized for IV antibiotics pending clinical improvement. Total time spent today is 70 minutes, 40 minutes in coordination of care and discussing with patient and other providers management of cellulitis, nail puncture wound, pending surgery.
--- NOTE | 2022-09-08 15:50 | ED.NURSE ---
given report to Kalpana Miller who will resume care of the this patient. plan to admit to room 258 via wc.
[2022-09-08] MEDS: GABAPENTIN 300 MG CAPSULE PO (21:19)
[2022-09-08] MEDS: ATORVASTATIN CALCIUM 40 MG TABLET PO (21:19)
[2022-09-09] VITALS (9 sets, daily range): BP systolic 116–142; BP diastolic 71–96; PULSE 74–89; RESP 14–20; TEMP 36.9–38.1; O2SAT 95–97
[2022-09-09] MEDS: ACETAMINOPHEN 325 MG TABLET 975 MG PO ×2 (00:04→21:13)
[2022-09-09] MEDS: PIPERACILLIN/TAZOBACTAM 3.375 GM in 0.9 % SODIUM CHLORIDE Mini-bag 100 ML IVPB ×4 (03:17→22:37)
--- NOTE | 2022-09-09 06:30 | PC.NURSE ---
23-07: pleasant. Indep. Calls appropriately. Left leg warm to touch, ice pack placed and pt stated relief. Wheezes auscultated, pt stated he is getting over a cold, declined need for cough syrup. Temp 99.8, Tylenol given, came down to 99.1.
[2022-09-09 07:39] LABS: Basophils Absolute Auto 0.02 K/uL (0.00-0.30); Basophils Percent Auto 0.3 % (0.0-3.0); Eosinophils Absolute Auto 0.08 K/uL (0.00-0.50); Hematocrit 36.9 % (37.0-53.0); Immature Granulocytes Abs Auto 0.01 K/uL (0.00-0.30); Immature Granulocytes Pct Auto 0.1 %; Lymphocytes Percent Auto 12.1 % (20-44); Mean Corpuscular HGB Conc 33 gm/dL (32-36); Mean Corpuscular Hemoglobin 30 pg (26-34); Mean Corpuscular Volume 92 fL (80-100); Monocytes Percent Auto 14.6 % (0.0-11.0); Neutrophils Absolute Auto 5.56 K/uL (1.7-7.0); Neutrophils Percent Auto 71.9 % (42.0-72.0); Platelet Count* 136 K/uL (140-440); RDW Coefficient of Variation % 13.4 % (11.5-15.5); Red Blood Count 4.03 m/uL (4.30-5.90); White Blood Count* 7.74 K/uL (4.50-11.00)
[2022-09-09 07:42] LABS: Slide Review Reflex No
[2022-09-09 07:56] LABS: Chloride* 109 mmol/L (96-114); Potassium* 3.9 mmol/L (3.6-5.1); Sodium* 137 mmol/L (135-149)
[2022-09-09 07:58] LABS: Creatinine* 0.9 mg/dL (0.5-1.5); Est. Creatinine Clearance* 80.83; Estimated Glomerular Filt Rate 95 ml/min
[2022-09-09 07:59] LABS: Blood Urea Nitrogen* 11 mg/dL (7-30); Carbon Dioxide* 23 mmol/L (20-32); Glucose* 99 mg/dL (60-115)
[2022-09-09 08:00] LABS: Calcium* 8.1 mg/dL (8.4-10.6)
[2022-09-09 08:02] LABS: C Reactive Protein* 8.3 mg/dL (0.5-1.0)
[2022-09-09] MEDS: GABAPENTIN 300 MG CAPSULE PO ×3 (09:41→21:13)
[2022-09-09] MEDS: MULTIVITAMIN/MINERALS 1 TABLET 1 TAB PO (09:41)
[2022-09-09] MEDS: DULOXETINE HCL 20 MG CAPSULE DR 80 MG PO (09:42)
[2022-09-09] MEDS: buPROPion XL 150 MG TABLET 300 MG PO (09:42)
[2022-09-09] MEDS: OXYCODONE 5 MG TABLET PO ×2 (11:03→20:27)
--- NOTE | 2022-09-09 11:47 | CRLHL7_ITS ---
For Patients: As a result of the Cures Act, medical imaging exams and procedure reports are released immediately into your electronic medical record. You may view this report before your referring provider. If you have questions, please contact your health care provider. INDICATION: Left calf cellulitis, rule out abscess. TECHNIQUE: Ultrasound soft tissue limited. Sonographic images of the left calf were obtained using barrett-scale and color Doppler images. COMPARISON: None available. FINDINGS/IMPRESSION: Dedicated sonographic imaging in the proximal left calf shows subcutaneous edema. No organized fluid collection/abscess is identified within the imaged subcutaneous tissues. Dictated by Altagracia Hancock MD @ 09/09/2022 4:03:26 PM (Electronically Signed)
[2022-09-09] MEDS: 0.9 % SODIUM CHLORIDE 250 ml IV (12:40)
--- NOTE | 2022-09-09 13:09 | P.IMPN_ITS ---
Progress Note: A&P Assessment and plan (1) Cellulitis: Problem details: Leg appears to be cellulitis typical of a strep infection without obvious purulence. The presence of a fever and a puncture wound in his foot will initiate broad-spectrum antibiotic coverage for MRSA and Pseudomonas and po ssibly narrow therapy depending on his response. Status: Acute (2) Puncture wound of skin from metal nail: Problem details: Tetanus is up-to-date. Empiric initial treatment for Pseudomonas and MRSA Status: Acute (3) Upper respiratory infection: Problem details: Improving Status: Acute (4) Arthritis of left acromioclavicular joint: Problem details: Dr. Christianson to decide about proceeding to shoulder surgery next week. Status: Acute (5) Rotator cuff tear, left: Status: Acute (6) Sleep apnea: Problem details: He will ask his children to bring in his CPAP Status: Acute Plan Continue in hospital for another day pending clinical course and cultures. Will obtain ultrasound looking for abscess in his left lower extremity as well. If no abscesses found and he is clinically improved he can probably be discharged to home on outpatient antibiotics tomorrow Time Spent With Patient Total time spent: Total time spent is 25 minutes, 20 minutes in course care discussing with patient other providers ongoing evaluation management of leg cellulitis Subjective Date Seen: 09/09/22 Interval history: 67-year-old male seen in followup of left leg cellulitis and nail puncture injury to his left foot. He reports his leg is still hurting quite a bit. Primarily in the upper posterior calf area. Hurts distal lays leg on the bed. He is not aware of fever. No breathing troubles. He is eating normally. No other concerns today. Exam Narrative: Exam Narrative: He is alert no distress. Breathing is unlabored. Lower extremities examined. Moderate venous stasis skin changes on his left leg. He has erythema from just below the knee down to the ankle on his left leg. This is particularly tender in the upper portion of his left calf posteriorly. There is no obvious abscess or fluctuance. Left foot has puncture wound without significant tenderness redness or drainage around it. Intact pedal pulses. Good capillary refill. Right lower extremity is relatively normal with mild venous stasis skin changes. Const: Vital Signs, click to edit/add: Vital Signs - 24 hr 09/08/22 13:55 09/08/22 13:30 09/08/22 15:34 Temperature 100.2 F H 99.4 F Pulse Rate [Pulse Oximeter] 73 78 78 Respiratory Rate 16 16 16 Blood Pressure [Le ft Arm] Blood Pressure [Ri ght Arm] Blood Pressure [Ri ght Upper Arm] 102/53 L 99/66 113/66 Pulse Oximetry 98 97 98 Oxygen Delivery Me thod Room Air Room Air Room Air 09/08/22 16:29 09/08/22 16:39 09/08/22 16:39 Temperature 100.0 F H 100.0 F H Pulse Rate [Pulse Oximeter] 74 Respiratory Rate 20 Blood Pressure [Le ft Arm] 150/80 H Blood Pressure [Ri ght Arm] Blood Pressure [Ri ght Upper Arm] Pulse Oximetry 95 95 Oxygen Delivery Me thod Room Air Room Air 09/08/22 19:39 09/09/22 00:04 09/08/22 23:00 Temperature 99.3 F 99.8 F H Pulse Rate [Pulse Oximeter] 82 Respiratory Rate 20 Blood Pressure [Le ft Arm] Blood Pressure [Ri ght Arm] Blood Pressure [Ri ght Upper Arm] Pulse Oximetry Oxygen Delivery Me thod 09/08/22 23:00 09/09/22 03:00 09/09/22 07:00 Temperature 99.8 F H 99.1 F 98.7 F Pulse Rate [Pulse Oximeter] 82 75 81 Respiratory Rate 20 20 14 Blood Pressure [Le ft Arm] 138/89 130/85 Blood Pressure [Ri ght Arm] 142/96 H Blood Pressure [Ri ght Upper Arm] Pulse Oximetry 96 95 96 Oxygen Delivery Vt thod Room Air Room Air Room Air 09/09/22 09:25 09/09/22 11:00 Temperature 99.4 F Pulse Rate [Pulse Oximeter] 77 Respiratory Rate 16 Blood Pressure [Le ft Arm] Blood Pressure [Ri ght Arm] 130/93 H Blood Pressure [Ri ght Upper Arm] Pulse Oximetry 96 96 Oxygen Delivery Vt thod Room Air Labs Labs: Laboratory Results - last 24 hr 09/09/22 09/09/22 06:48 06:48 WBC 7.74 RBC 4.03 L Hgb 12.0 L Hct 36.9 L MCV 92 MCH 30 MCHC 33 RDW Coeff of Gucci 13.4 Plt Count 136 L Neut % (Auto) 71.9 Lymph % (Auto) 12.1 L [place] % (Auto) 14.6 H Eos % (Auto) 1.0 Baso % (Auto) 0.3 Neut # (Auto) 5.56 Lymph # (Auto) 0.90 [place] # (Auto) 1.10 H Eos # (Auto) 0.08 Baso # (Auto) 0.02 Abs Immat Gran (auto) 0.01 Imm/Tot Granulo (auto) 0.1 Sodium 137 Potassium 3.9 Chloride 109 Carbon Dioxide 23 BUN 11 Creatinine 0.9 Estimated Creat Clear 80.83 Estimated GFR 95 Glucose 99 Calcium 8.1 L C-Reactive Protein 8.3 H
--- NOTE | 2022-09-09 14:29 | PC.NURSE ---
Patient Alert and Oriented x4, left lower leg cellulites remains within previous outline, patient reported pain 6/10 in shoulder, pain managed with PRN medications, up Ind, tolerating regular diet. New IV in right forearm, due to old IV being puffy/leakage.
[2022-09-09] MEDS: ATORVASTATIN CALCIUM 40 MG TABLET PO (21:14)
[2022-09-09] MEDS: SODIUM CHLORIDE 0.9 % (FLUSH) 10 ML SYRINGE 5 ML IVF (21:14)
--- NOTE | 2022-09-09 21:47 | PC.NURSE ---
Shift Note [id number]: Pt a/o and able to verbalize needs. Independent and cooperative with POC. Showered this evening. Temp at HS= 100.6, PRN Tylenol given. LLE erythema remains improved within previously marked borders. Left leg elevated on pillows above pt's heart. Rates pain to left leg 3/10 and left shoulder 7/10, PRN Oxycodone given with HS meds. Pt compliant with personal Cpap.
[2022-09-10 02:52] VITALS: BP 121/63; PULSE 71; RESP 16; TEMP 36.8; O2SAT 95
[2022-09-10] MEDS: PIPERACILLIN/TAZOBACTAM 3.375 GM in 0.9 % SODIUM CHLORIDE Mini-bag 100 ML IVPB ×2 (03:19→10:02)
[2022-09-10 06:16] LABS: Basophils Absolute Auto 0.01 K/uL (0.00-0.30); Basophils Percent Auto 0.2 % (0.0-3.0); Eosinophils Absolute Auto 0.13 K/uL (0.00-0.50); Hematocrit 36.4 % (37.0-53.0); Immature Granulocytes Abs Auto 0.04 K/uL (0.00-0.30); Immature Granulocytes Pct Auto 0.6 %; Lymphocytes Percent Auto 15.2 % (20-44); Mean Corpuscular HGB Conc 33 gm/dL (32-36); Mean Corpuscular Hemoglobin 30 pg (26-34); Mean Corpuscular Volume 90 fL (80-100); Neutrophils Absolute Auto 4.51 K/uL (1.7-7.0); Platelet Count* 144 K/uL (140-440); RDW Coefficient of Variation % 13.1 % (11.5-15.5); Red Blood Count 4.06 m/uL (4.30-5.90); White Blood Count* 6.53 K/uL (4.50-11.00)
[2022-09-10 06:19] LABS: Slide Review Reflex No
[2022-09-10 06:29] LABS: Chloride* 109 mmol/L (96-114)
[2022-09-10 06:30] LABS: Potassium* 3.8 mmol/L (3.6-5.1); Sodium* 137 mmol/L (135-149)
[2022-09-10 06:32] LABS: Creatinine* 0.8 mg/dL (0.5-1.5); Est. Creatinine Clearance* 80.83; Estimated Glomerular Filt Rate 98 ml/min
[2022-09-10 06:33] LABS: Blood Urea Nitrogen* 11 mg/dL (7-30); Calcium* 8.5 mg/dL (8.4-10.6); Carbon Dioxide* 24 mmol/L (20-32); Glucose* 107 mg/dL (60-115)
[2022-09-10 07:00] VITALS: BP 137/86; PULSE 77; RESP 16; TEMP 36.9; O2SAT 97
--- NOTE | 2022-09-10 07:27 | PC.NURSE ---
23-07: indep. VSS. Afebrile. CPAP on while asleep. LLE elevated.
[2022-09-10 09:00] VITALS: O2SAT 96
[2022-09-10] MEDS: buPROPion XL 150 MG TABLET 300 MG PO (09:53)
[2022-09-10] MEDS: MULTIVITAMIN/MINERALS 1 TABLET 1 TAB PO (09:59)
[2022-09-10] MEDS: DULOXETINE HCL 20 MG CAPSULE DR 80 MG PO (09:59)
[2022-09-10] MEDS: OXYCODONE 5 MG TABLET PO ×2 (10:01→14:00)
[2022-09-10] MEDS: GABAPENTIN 300 MG CAPSULE PO (10:01)
[2022-09-10] MEDS: SODIUM CHLORIDE 0.9 % (FLUSH) 10 ML SYRINGE 5 ML IVF (10:03)
[2022-09-10] MEDS: 0.9 % SODIUM CHLORIDE 250 ml IV (10:05)
[2022-09-10 11:00] VITALS: BP 134/98; PULSE 70; RESP 18; TEMP 37; O2SAT 96
[2022-09-10] MEDS: ACETAMINOPHEN 325 MG TABLET 975 MG PO (11:17)
--- NOTE | 2022-09-10 11:41 | P.DS_ITS ---
DS: Providers Provider Date Seen: 09/10/22 Date of admission: 09/08/22 16:09 Primary care physician: Sanya Shah MD Admitting Clinician: Aiden Aldrich MD Attending Physician on discharge: Aiden Aldrich MD Date of Discharge: 09/10/22 DS: Diagnosis Discharge Diagnosis (1) Cellulitis: Status: Acute Problem details: Leg appears to be cellulitis typical of a strep infection without obvious purulence. His cellulitis is minimally improved. His fever has resolved. Will treat with cephalexin as an outpatient with close follow-up. (2) Puncture wound of skin from metal nail: Status: Acute Problem details: Tetanus is up-to-date. Empiric initial treatment for Pseudomonas and MRSA. No obvious signs of foot cellulitis (3) Arthritis of left acromioclavicular joint: Status: Acute Problem details: Dr. Christianson to decide about proceeding to shoulder surgery next week. DS: Summary Hospital Course Hospital Course: 67-year-old male admitted to the hospital with left leg cellulitis and associated fever. He also had a history of stepping on a nail prior to the onset of the cellulitis. On presentation the cellulitis appeared to be involving his left calf primarily not involving his left foot where he had stepped on the nail. He was treated with vancomycin and piperacillin tazobactam to cover Pseudomonas and MRSA from a possible nail puncture infection. His cultures have been negative and he has not developed a foot cellulitis of the decision is now made to treat him for an and uncomplicated strep cellulitis with cephalexin. His tetanus is up-to-date. He has had recurrent cellulitis of this left leg, this is his 5th episode in the last decade. Ultrasound of his leg was done for DVT and none was found he also an ultrasound looking for a drainable fluid collection and none was found. Status at Discharge Functional status at discharge: independent ambulation Overall status at discharge: patient is progressing back to baseline Time Spent with Patient Time attestation: Total time spent providing and/or coordinating discharge services: Time spent: Greater than 30 minutes Exam Narrative: Exam Narrative: He is alert no distress. Left lower extremity is examined. The erythema extends to the same extent as it did previously. It is not quite as intense. His calf is not quite as tender or swollen. He has intact pedal pulses. Const: Vital Signs, click to edit/add: Vital Signs - 24 hr 09/09/22 15:00 09/09/22 15:00 09/09/22 21:13 Temperature 99.4 F 100.6 F H Pulse Rate [Pulse Oximeter] 74 77 Respiratory Rate 16 16 Blood Pressure [Le ft Arm] 130/85 Blood Pressure [Ri ght Arm] 130/93 H Pulse Oximetry 96 Oxygen Delivery Me thod Room Air 09/09/22 19:00 09/09/22 23:00 09/09/22 23:00 Temperature 100.6 F H 98.4 F Pulse Rate [Pulse Oximeter] 89 84 89 Respiratory Rate 16 16 16 Blood Pressure [Le ft Arm] 140/71 H 116/72 Blood Pressure [Ri ght Arm] Pulse Oximetry 96 97 Oxygen Delivery Me thod Room Air Room Air 09/10/22 02:52 09/10/22 07:00 09/10/22 07:00 Temperature 98.3 F 98.4 F Pulse Rate [Pulse Oximeter] 71 77 Respiratory Rate 16 16 16 Blood Pressure [Le ft Arm] 121/63 Blood Pressure [Ri ght Arm] 137/86 Pulse Oximetry 95 97 Oxygen Delivery Me thod Room Air Room Air Documenting provider has reviewed patient's vital signs: yes DS: Data Data Completed and Pending Labs on day of discharge: Labs from last 24 hours 09/10/22 09/10/22 05:51 05:51 WBC 6.53 RBC 4.06 L Hgb 12.0 L Hct 36.4 L MCV 90 MCH 30 MCHC 33 RDW Coeff of Gucci 13.1 Plt Count 144 Neut % (Auto) 69.0 Lymph % (Auto) 15.2 L [place] % (Auto) 13.0 H Eos % (Auto) 2.0 Baso % (Auto) 0.2 Neut # (Auto) 4.51 Lymph # (Auto) 1.00 [place] # (Auto) 0.80 Eos # (Auto) 0.13 Baso # (Auto) 0.01 Abs Immat Gran (auto) 0.04 Imm/Tot Granulo (auto) 0.6 Sodium 137 Potassium 3.8 Chloride 109 Carbon Dioxide 24 BUN 11 Creatinine 0.8 Estimated Creat Clear 80.83 Estimated GFR 98 Glucose 107 Calcium 8.5 C-Reactive Protein 6.0 H Preliminary micro results at discharge 09/08/22 10:00 Blood Culture - Preliminary Blood NO GROWTH AFTER 48 HOURS 09/08/22 09:37 Blood Culture - Preliminary Blood NO GROWTH AFTER 48 HOURS Discharge Plan Discharge Disposition: Home, Self-Care Date of Admission: 09/08/22 16:09 Attending Provider on Discharge: Aiden Aldrich Primary Care Provider: Sanya Shah Condition: Stable Anticipated Discharge Date/Time: 09/10/22 11:30 Discharge Medications: New cephalexin 500 mg capsule 500 mg PO QID Qty: 30 0RF Continued duloxetine 20 mg capsule,delayed release(DR/EC) 20 mg PO DAILY duloxetine 60 mg capsule,delayed release(DR/EC) 60 mg PO DAILY Label Comments: TAKE ONE CAPSULE (60MG) BY MOUTH ONCE DAILY ALONG WITH 1-20MG CAPSULE (TOTAL DAILY DOSE=80MG) atorvastatin 20 mg tablet 40 mg PO HS Label Comments: TAKE 1 TABLET (20 MG) BY MOUTH ONCE DAILY. gabapentin 300 mg capsule 300 mg PO TID Label Comments: TAKE 1 CAPSULE(S) BY MOUTH 3 TIMES DAILY FOR 90 DAYS bupropion HCl 150 mg tablet extended release 24 hr 300 mg PO DAILY Label Comments: TAKE 2 TABLET(S) BY MOUTH ONCE DAILY FOR 90 DAYS rizatriptan [Maxalt] 10 mg tablet 10 mg PO Q2-4H PRN Rx Instructions: do not exceed 3 doses per 24 hrs multivitamin Tablet 1 tab PO DAILY Discharge Orders: Discharge Order (Routine); Ordered 09/10/22 Ordered By: Aiden Aldrich Patient Education: Cellulitis (ED), Upper Respiratory Infection (ED) Additional Instructions: Start oral antibiotics today and take as prescribed. You will be on 2 antibiotics. Doxycycline should be good coverage for any lung bacterial infection. Chest x-ray did not show any evidence of pneumonia. Need to try to elevate this leg until your symptoms are improving. Recommend follow up in clinic within the next 1-3 days for recheck, make sure that you are still ok for surgery. If you are worsening at any point, do not feel that the cellulitis is improving, need to seek re-evaluation. Activity Level: Activity as Tolerated Discharge Diet: Regular Follow Up Appointments: Sanya Shah MD [Primary Care Provider] - (4 days) Forms: [id number] Info Instructions
[2022-09-10 15:00] VITALS: BP 115/84; PULSE 71; RESP 18; TEMP 36.9; O2SAT 98
--- NOTE | 2022-09-10 16:13 | PC.NURSE ---
Patient alert and oriented x4, lung all clear except right lower lobe had inspiratory wheezing and diminish breath sounds. Afebrile. Left leg cellulitis stayed within previously drawn borders. Patient reported left leg pain 3/10 and left shoulder pain 6/10. Pain was managed with PRN medications. Patient is ind, and tolerating a regular diet. IV was removed at discharge. Education was given to patient. Patient verbalized understanding. Patient ambulated self to son's car at discharge.
== END 2022-09-10 15:45 | disposition home or self-care (01) ==
LOC: ED 13:00 → MEDSURG 16:09
PROVIDERS: Admitting Provider Family Medicine; Emergency Provider Family Medicine; PCP Family Medicine; Visit Provider Family Medicine
DX: L03.116 Cellulitis of left lower limb (principal); J06.9 Acute upper respiratory infection, unspecified; W45.0XXA Nail entering through skin, initial encounter; M19.012 Primary osteoarthritis, left shoulder; M75.122 Complete rotator cuff tear or rupture of left shoulder, not specified as traumatic; R22.42 Localized swelling, mass and lump, left lower limb; G47.30 Sleep apnea, unspecified; R50.9 Fever, unspecified; M25.512 Pain in left shoulder; Z72.0 Tobacco use; F32.A Depression, unspecified; Z87.2 Personal history of diseases of the skin and subcutaneous tissue; Z96.652 Presence of left artificial knee joint; Z98.890 Other specified postprocedural states; Z86.14 Personal history of Methicillin resistant Staphylococcus aureus infection; M79.662 Pain in left lower leg; R05.9 Cough, unspecified
CPT/HCPCS: 36415; 71045; 76882; 80048; 83605; 85025; 86140; 87040; 87502; 87634; 87635; 93971; 94761; 96365; 96366; 96367; 96368; 96375; 99284; 99285; A9153; A9270; G0378; G0379; J2543; J3370; J7050; J7120

== ENCOUNTER 2022-09-14 13:35 | Outpatient (CLI) | payer MEDICARE, SELFPAY ==
--- NOTE | 2022-09-14 14:00 | CRLHL7_ITS ---
For Patients: As a result of the Century Cures Act, medical imaging exams and procedure reports are released immediately into your electronic medical record. You may view this report before your referring provider. If you have questions, please contact your health care provider. INDICATION: Pain TECHNIQUE: Ultrasound venous duplex lower left extremity. Compression venous exam was performed using barrett-scale, color Doppler, and spectral Doppler analysis. COMPARISON: None FINDINGS: Sonographic imaging demonstrates the left common femoral, deep femoral, superficial femoral, popliteal, posterior tibial and greater saphenous and the contralateral right common femoral veins to be fully compressible with normal color Doppler blood flow. Left calf edema. IMPRESSION: Normal left lower extremity venous ultrasound, no sign of deep venous thrombosis. Calf edema. Dictated by Mahesh Jesus MD @ 09/14/2022 4:44:47 PM Dictated by: Mahesh Jesus MD @ 09/14/2022 16:44:53 (Electronically Signed)
== END 2022-09-14 13:36 | disposition home or self-care (01) ==
PROVIDERS: PCP Family Medicine; Visit Provider Family Medicine
DX: M79.605 Pain in left leg (principal)
CPT/HCPCS: 93971

== ENCOUNTER 2022-10-06 06:06 | Day surgery (SDC) | payer MEDICARE, SELFPAY ==
[2022-10-06] VITALS (9 sets, daily range): BP systolic 112–145; BP diastolic 77–107; PULSE 70–86; RESP 14–18; TEMP 36.4–36.8; O2SAT 93–98; BMI 47.8
[2022-10-06] MEDS: LACTATED RINGERS 1000 ML 1,000 ML 100 ML IV (06:30)
[2022-10-06] MEDS: ACETAMINOPHEN 500 MG TABLET 1000 MG PO (06:37)
[2022-10-06] MEDS: OXYCODONE (CR) 10 MG TAB.ER.12H PO (06:38)
[2022-10-06] MEDS: CELECOXIB 200 MG CAPSULE PO (06:38)
[2022-10-06] MEDS: SODIUM CHLORIDE 0.9 % (FLUSH) 10 ML SYRINGE IVF (06:40)
--- NOTE | 2022-10-06 06:52 | SUR.PREOP ---
patient did home covid antigen test on 10/06/22. Brought test with for nurse to view. Observed 1 line indicating a negative test.
[2022-10-06] MEDS: fentaNYL 100 MCG/2 ML inj IVP (07:09)
[2022-10-06] MEDS: MIDAZOLAM HCL 1 MG/ML inj IVP (07:09)
--- NOTE | 2022-10-06 07:15 | SUR.PREOP ---
TIME?OUT:?0708 PT/arabella fernandez RN/Vicky Wagner CRNA?VERIFICATION?OF?SURGICAL?SITE left shoulder,?PROCEDURE,?AND?CONSENT OBTAINED?PRIOR?TO?INVASIVE?PROCEDURE.
--- NOTE | 2022-10-06 08:14 | PM.ORPRC ---
Procedure Note Date of procedure: 10/06/22 Procedure: PREOPERATIVE DIAGNOSIS: Left shoulder rotator cuff tear, AC joint arthrosis POSTOPERATIVE DIAGNOSIS: Left shoulder rotator cuff tear, AC joint arthrosis NAME OF OPERATION: After unsuccessful intubation, the case was canceled SURGEON: Cuauhtemoc Christianson MD PEDIATRIC NEUROLOGIST: Ligia Avina PA-C ANESTHESIA: Supraclavicular block ESTIMATED BLOOD LOSS: 0 mL COMPLICATIONS: None SPECIMENS: None DRAINS: None PREOPERATIVE ANTIBIOTICS: Ancef 3 grams INDICATIONS: The patient is a 67-year-old with a history of left shoulder pain secondary to the above diagnoses. Despite appropriate non operative management, they continue to have symptoms. Operative intervention was recommended. The risks, benefits and expected outcomes were discussed in detail. These included but were not limited to: Infection, bleeding, injury to blood vessel or nerve, venous thromboembolism. All questions were answered to their satisfaction. PROCEDURE: A supraclavicular block was placed by Anesthesia. The patient was placed supine on the operating room table. Three attempts at endotracheal intubation was made by Anesthesia, using the glide scope. This was unsuccessful, given his difficult airway. Rather than continuing and risking losing his airway, it was elected to abort the case. The patient was ventilated uneventfully. He was awakened in the operating room and sent to the postanesthesia care unit in satisfactory condition. PLAN: The patient will be discharged to home. We will allow his airway to calm down over the next week. Any time after that, he can be rescheduled for left shoulder rotator cuff repair with fiberoptic intubation. Dr. Wagner okayed the case to be rescheduled on a different date.
--- NOTE | 2022-10-06 09:16 | P.NB_ITS ---
Nerve Block Nerve Block Time Seen by Provider: 07:00 Date Seen: 10/06/22 Type of block requested by surgeon for post-operative analgesia: supraclavicular Side: left Time out performed: Yes Verification of patient name: Yes Verification of date of : Yes Site marking: site marked Name of person performing procedure: James Wagner Continuous monitoring Was continuous monitoring of O2 sat, B/P, employment law specialist, recorded every 15 minutes?: Yes Procedure Checklist: sterile prep, needles and gloves Ultrasound guided. Images saved: Yes Medications given in 5ml increments after negative aspiration: Ropivicaine %: 0.5 mL: 20 Needle gauge: 20 Decadron (mg): 10 Precedex (mcg): 25 Patient tolerated procedure well: Yes Block Charges Block Charge (with Pro Fee): Brachial Plexus Use of Ultrasound Machine for Block: Yes- US Guidance/pain block
--- NOTE | 2022-10-06 09:59 | SUR.PHASEII ---
The surgery wasn't completed due to difficult intubation, pt did receive pre op nerve block. left shoulder numb, able to wiggle fingers. Left arm in sling. Pt states he has a sore throat. Tolerated popsicle, yogurt and coffee. Pt ambulated to car with Son.
--- NOTE | 2022-10-06 13:40 | W.ANESCHARGE ---
Anesthesia Charges Start Date/Time Anesthesia Start Date: 10/06/22 Anesthesia Start Time: 07:30 Stop Date/Time Anesthesia Stop Date: 10/06/22 Anesthesia Stop Time: 08:10 Summary Emergency: No
== END 2022-10-06 09:40 | disposition home or self-care (01) ==
LOC: OR 06:10 → MEDSURG 08:14 → OR 08:29
PROVIDERS: PCP Family Medicine; Visit Provider Orthopaedic Surgery
PROC: (CPT 23412; principal; 2022-10-06 07:30)
DX: M75.102 Unspecified rotator cuff tear or rupture of left shoulder, not specified as traumatic (principal); M19.012 Primary osteoarthritis, left shoulder; M25.512 Pain in left shoulder; T88.4XXA Failed or difficult intubation, initial encounter
CPT/HCPCS: 29827; 01630; 64415; 76942; A9270; J0330; J1100; J2250; J2704; J2795; J3010; J7120

== ENCOUNTER 2022-10-26 06:02 | Day surgery (SDC) | payer MEDICARE, SELFPAY ==
[2022-10-26] VITALS (18 sets, daily range): BP systolic 102–140; BP diastolic 76–99; PULSE 63–88; RESP 16–24; TEMP 36.3–36.8; O2SAT 93–100; BMI 47.8
[2022-10-26] MEDS: CELECOXIB 200 MG CAPSULE PO (05:54)
[2022-10-26] MEDS: LACTATED RINGERS 1000 ML 1,000 ML 100 ML IV (05:55)
[2022-10-26] MEDS: SODIUM CHLORIDE 0.9 % (FLUSH) 10 ML SYRINGE IVF (07:02)
[2022-10-26] MEDS: ACETAMINOPHEN 500 MG TABLET 1000 MG PO (07:05)
[2022-10-26] MEDS: OXYCODONE (CR) 10 MG TAB.ER.12H PO (07:05)
[2022-10-26] MEDS: MIDAZOLAM HCL 1 MG/ML inj IVP (07:10)
[2022-10-26] MEDS: fentaNYL 100 MCG/2 ML inj IVP (07:10)
--- NOTE | 2022-10-26 07:24 | SUR.PREOP ---
TIME?OUT:?0709 PT/RN/MDA?VERIFICATION?OF?SURGICAL?SITE Left [place],?PROCEDURE Nerve Block,?AND?CONSENT OBTAINED?PRIOR?TO?INVASIVE?PROCEDURE.
[2022-10-26] MEDS: CEFAZOLIN 1 GM inj 3 GM IVP (07:58)
--- NOTE | 2022-10-26 08:29 | P.NB_ITS ---
Nerve Block Nerve Block Time Seen by Provider: 07:17 Date Seen: 10/26/22 Type of block requested by surgeon for post-operative analgesia: supraclavicular Side: left Time out performed: Yes Verification of patient name: Yes Verification of date of : Yes Site marking: site marked Name of person performing procedure: Bernard Continuous monitoring Was continuous monitoring of O2 sat, B/P, alarm security or surveillance monitor, recorded every 15 minutes?: Yes Procedure Checklist: sterile prep, needles and gloves Ultrasound guided. Images saved: Yes Medications given in 5ml increments after negative aspiration: Ropivicaine %: 0.5 mL: 20 Needle gauge: 22 Decadron (mg): 10 Precedex (mcg): 25 Patient tolerated procedure well: Yes Block Charges Block Charge (with Pro Fee): Brachial Plexus Use of Ultrasound Machine for Block: Yes- US Guidance/pain block
--- NOTE | 2022-10-26 09:40 | PM.ORPRC ---
Procedure Note Date of procedure: 10/26/22 Procedure: PREOPERATIVE DIAGNOSIS: Left shoulder rotator cuff tear, AC joint arthrosis POSTOPERATIVE DIAGNOSIS: Left shoulder rotator cuff tear, AC joint arthrosis NAME OF OPERATION: Left shoulder arthroscopic subacromial decompression, distal clavicle excision, mini open rotator cuff repair SURGEON: Cuauhtemoc Christianson MD MICA LAMINATING MACHINE FEEDER: Sydney Mittal PA-C ANESTHESIA: Supraclavicular block plus general endotracheal ESTIMATED BLOOD LOSS: 5 mL COMPLICATIONS: None SPECIMENS: None DRAINS: None PREOPERATIVE ANTIBIOTICS: Ancef 3 grams INDICATIONS: The patient is a 67-year-old with a history of left shoulder pain secondary to the above diagnoses. Despite appropriate non operative management, they continue to have symptoms. Operative intervention was recommended. The risks, benefits and expected outcomes were discussed in detail. These included but were not limited to: Infection, bleeding, injury to blood vessel or nerve, venous thromboembolism. All questions were answered to their satisfaction. A modifier 22 should be added to this case. The patient's weight of 160 kg with a BMI of 48 kg/meter squared made positioning and exposure difficult. This doubled the time typically required to complete the case. PROCEDURE: A supraclavicular block was placed by Anesthesia. General anesthesia was administered. The patient was placed in the high beach chair position. The left shoulder was prepped and draped in the usual sterile fashion. The glenohumeral joint was infiltrated with 20 mL of normal saline with epinephrine. The posterior portal was established, the arthroscope was introduced. The anterior portal was established, Diagnostic arthroscopy was performed with findings as follows: The biceps and biceps anchor are intact. The labrum shows age-appropriate degenerative tearing circumferentially. There is a 5 x 7 mm area of grade 4 casino change attendant the anterior, inferior aspect of the glenoid, otherwise articular surfaces are normal. There are no loose bodies. There is a full-thickness tear of the supraspinatus and infraspinatus. The labrum was debrided with the shaver. Unstable chondral flaps on the glenoid were debrided with the shaver. The arthroscope was placed in the subacromial space, the lateral portal was established. The Arthrex [place] was used to dissect the acromion free. The CA ligament was recessed off the anterior acromion, the AC joint was exposed. The acromioplasty was performed with the bur in the posterior portal. The bur was then placed in the lateral portal and the lateral and anterior aspect of the acromion were resected. The undersurface of the distal clavicle was resected through the lateral portal. Finally, the bur was placed in the anterior portal and the remainder of the distal clavicle was resected for a total of 10 mm. An accessory anterolateral portal was placed. The subacromial/subdeltoid bursa was aggressively debrided. There is a full-thickness tear of the supraspinatus and infraspinatus. 2 margin convergence sutures were placed with the scorpion. Arthroscopic knot tying was done. This nicely advanced the rotator cuff tear laterally. Arthroscopic instruments were removed. The accessory anterolateral portal was extended proximally and distally, subcutaneous dissection was taken with electrocautery to the deltoid. The deltoid was divided in line with its fibers. The static retractor was placed. The subacromial/subdeltoid bursa was debrided with the Love scissors. The greater tuberosity was debrided to punctate bleeding bone using the arthroscopic bur. Two Arthrex [employer] SwiveLock anchors were placed just off the articular surface. Both limbs of the FiberWire and fiber tape were passed using the scorpion. We tied the 2 central FiberWire sutures over the rotator cuff. We then proceeded with a lateral row of SwiveLock anchors x 2 crossing the FiberTape and incorporating the FiberWire into each lateral row anchor. The suture on the eyelid was passed through the leading edge of the rotator cuff both anteriorly and posteriorly. This provides an anatomic, watertight repair of the rotator cuff. There is no tension on the repair with the shoulder at 0? abduction. The wound was irrigated with normal saline off the pump. The deltoid was repaired with an 0 Vicryl in an interrupted [id number] fashion. Subcutaneous tissues were closed with a 3-0 Vicryl. Skin was closed with a 3-0 Monocryl in a subcuticular fashion. A dry dressing, polar care and sling were applied. Sponge and needle counts were correct x2. The patient tolerated the procedure well. There were no apparent complications. They were carefully transferred to the hospital bed and taken to the postanesthesia care unit in satisfactory condition. PLAN: The patient will be discharged to home. No active range of motion of the shoulder will be allowed for 6 weeks postoperatively. They can work on active range of motion of the elbow, wrist and fingers. They will follow up in the office next week for a wound check and an AP and transscapular Y-view of the shoulder prior to being seen.
[2022-10-26] MEDS: fentaNYL 100 MCG/2 ML inj 50 MCG IVP ×2 (10:13→10:19)
[2022-10-26] MEDS: HYDROmorphone 0.5 mg/0.5 ml inj IVP (10:19)
--- NOTE | 2022-10-26 10:23 | W.ANESCHARGE ---
Anesthesia Charges Start Date/Time Anesthesia Start Date: 10/26/22 Anesthesia Start Time: 07:30 Stop Date/Time Anesthesia Stop Date: 10/26/22 Anesthesia Stop Time: 10:13 Summary Emergency: No
--- NOTE | 2022-10-26 10:53 | W.ANESCHARGE ---
Anesthesia Charges Start Date/Time Anesthesia Start Date: 10/26/22 Anesthesia Start Time: 07:30 Stop Date/Time Anesthesia Stop Date: 10/26/22 Anesthesia Stop Time: 10:13 Summary Emergency: No
--- NOTE | 2022-10-26 11:01 | SUR.PHASEI ---
D) PT. C/O PAIN - 07/13 I) ADMINISTER DILAUDID AND FENTANYL - SEE EMAR A) SHAKING GONE AND PAIN 11/13 P) CONTINUE TO MONITOR PT. COMFORT LEVEL AND TREAT PER ORDERS.
[2022-10-26] MEDS: OXYCODONE 5 MG TABLET PO (11:12)
== END 2022-10-26 12:24 | disposition home or self-care (01) ==
PROVIDERS: PCP Family Medicine; Visit Provider Orthopaedic Surgery
PROC: (CPT 23412; principal; 2022-10-26 07:30)
DX: M75.122 Complete rotator cuff tear or rupture of left shoulder, not specified as traumatic (principal); M19.012 Primary osteoarthritis, left shoulder; Z68.42 Body mass index [BMI] 45.0-49.9, adult; E66.01 Morbid (severe) obesity due to excess calories; G60.8 Other hereditary and idiopathic neuropathies; G89.29 Other chronic pain; M25.512 Pain in left shoulder
CPT/HCPCS: 29824; 29826; 23412; 01630; 64415; 76942; A9270; C1713; J0330; J0690; J1100; J1170; J2250; J2370; J2405; J2704; J2795; J3010; J3490; J7120; L3670

== ENCOUNTER 2022-11-19 07:48 | Outpatient (CLI) | payer MEDICARE, SELFPAY ==
--- NOTE | 2022-11-19 08:15 | MR_ITS ---
[address] [address] Phone:?[phone] Fax:?[phone] Referring Physician Information: Paolo Driver [address] [facility] [address] Phone:?[phone] Fax:?[phone] Patient:Amber Miller D.O.B:?1955 Sex:?Male Phone:?[phone] [facility] MRN:?[id number] Exam Date:?11/19/2022 ? EXAM: MRI of the LEFT SHOULDER, without contrast CLINICAL HISTORY: Left shoulder pain. History of previous surgery to the left shoulder. Evaluate rotator cuff anchors. COMPARISONS: Plain radiographs 11/05/2022. MRI 08/06/2022. TECHNICAL: MRI sequences of the left shoulder: Axials: PD, T2 Coronals: PD, STIR, T2 Sagittals: PD, T2 SEDATION: None CONTRAST: None FINDINGS: Bones: No fracture or destructive osseous lesion is seen. Coracoacromial arch: Acromion: No os acromiale. Surgical changes status post acromioplasty. Acromiohumeral space: The bony distance is unremarkable. Coracohumeral space: The bony distance is unremarkable. Acromioclavicular joint: Surgical changes status post distal clavicular resection. Exuberant bone marrow edema within the distal clavicle and acromion may reflect residual postoperative bone marrow edema depending given how recent the surgery was. Coracoclavicular ligament: The coracoclavicular ligament is intact. Rotator cuff muscles/tendons: Supraspinatus and infraspinatus: There are surgical changes status post rotator cuff repair. There is a 3.0 cm in AP dimension recurrent full-thickness tear of the supraspinatus tendon insertion and infraspinatus tendon insertion with maximal proximal/medial tendon retraction to the level of the glenoid. There is mild atrophy of the supraspinatus muscle, similar compared to previous MRI 08/06/2022, and moderate to marked atrophy of the infraspinatus muscle, mildly increased compared to previous MRI 08/06/2022. Edema-like signal within the humeral head surrounding the surgical anchors may reflect residual postoperative bone marrow edema given how recent the surgery was although foreign body reactions cannot be completely excluded by this study. Teres minor: The teres minor tendon and muscle are intact. Subscapularis: There is a 1.7 cm in craniocaudad dimension by 2.0 cm in transverse dimension ill-defined high-grade partial-thickness intrasubstance tear within the superior portion of the subscapularis tendon insertion, moderately to markedly increased compared to previous MRI 08/06/2022; correlate with surgical history. No disproportionate atrophy of the subscapularis muscle in the setting of mild diffuse muscular atrophy. Labrum and glenohumeral joint: Anteroinferior labral tear, posterosuperior labral fraying, chondral fissuring over the anteroinferior portion the glenoid, and subjacent degenerative subchondral cystic changes within the anteroinferior glenoid, similar compared to previous MRI 08/06/2022. There is a glenohumeral joint effusion. No convincing evidence of capsular edema or thickening although evaluation is suboptimal because of lack of joint distention. Proximal biceps tendon, long head and short heads: Fraying/ill-defined partial tearing of the proximal long head of the biceps tendon, which is medially subluxed onto the lesser tuberosity. Findings are progressed compared to previous MRI 08/06/2022. There is biceps tenosynovitis. The short head is intact. Bursae: Subacromial/subdeltoid: The presence of fluid is not unexpected given recurrent full-thickness rotator cuff tendon tearing. Subcoracoid: No convincing subcoracoid bursal thickening/bursitis. IMPRESSION: 1. Surgical changes status post rotator cuff repair, distal clavicular resection, and acromioplasty; correlate with surgical history. 2. 3.0 cm in AP dimension recurrent full-thickness tear of the supraspinatus tendon insertion and infraspinatus tendon insertion with maximal proximal/medial tendon retraction to the level of the glenoid. Moderate to marked atrophy of the infraspinatus muscle, mildly increased compared to previous MRI 08/06/2022. Mild atrophy of the supraspinatus muscle, similar compared to previous MRI 08/06/2022. Edema-like signal within the humeral head surrounding the surgical anchors may reflect residual postoperative bone marrow edema given how recent the surgery was although foreign body reactions cannot be completely excluded by this study. Correlate with surgical history. 3. 1.7 x 2.0 cm ill-defined high-grade partial-thickness intrasubstance tear within the superior portion of the subscapularis tendon insertion, moderately to markedly increased compared to previous MRI 08/06/2022; correlate with surgical history. No disproportionate atrophy of the subscapularis muscle in the setting of mild diffuse muscular atrophy. 4. Anteroinferior labral tear, posterosuperior labral fraying, chondral fissuring over the anteroinferior portion of the glenoid, and subjacent degenerative subdural cystic changes within the anteroinferior glenoid, similar compared to previous MRI 08/06/2022. 5. Exuberant bone marrow edema within the distal clavicle and acromion. Contiguous fluid within the subacromial/subdeltoid bursa communicating with glenohumeral joint fluid through the recurrent full-thickness rotator cuff tendon tearing. Findings are in keeping with recent postoperative changes and recurrent full-thickness rotator cuff tendon tearing although infection is not completely excluded by the imaging appearance. 6. Fraying/ill-defined partial tearing of the proximal long head of the biceps tendon, which is medially subluxed onto the lesser tuberosity. Findings are progressed compared to previous MRI 08/06/2022. Correlate with surgical history. Additionally, biceps tenosynovitis. 7. Glenohumeral joint effusion. RCB Electronically signed on 11/19/2022 4:29:00 PM by Niall Bran M.D.
== END 2022-11-19 07:49 | disposition home or self-care (01) ==
PROVIDERS: PCP Family Medicine; Visit Provider Physician Assistant Surgical
DX: M25.512 Pain in left shoulder (principal); M75.102 Unspecified rotator cuff tear or rupture of left shoulder, not specified as traumatic; S43.432A Superior glenoid labrum lesion of left shoulder, initial encounter; S46.212A Strain of muscle, fascia and tendon of other parts of biceps, left arm, initial encounter; M25.412 Effusion, left shoulder; Z98.890 Other specified postprocedural states
CPT/HCPCS: 73221

== ENCOUNTER 2022-11-24 09:53 | Day surgery (SDC) | payer MEDICARE, SELFPAY ==
[2022-11-24] VITALS (15 sets, daily range): BP systolic 88–125; BP diastolic 62–94; PULSE 70–98; RESP 14–24; TEMP 36.4–36.8; O2SAT 91–98; BMI 47.6
[2022-11-24] MEDS: ACETAMINOPHEN 500 MG TABLET 1000 MG PO (10:21)
[2022-11-24] MEDS: CELECOXIB 200 MG CAPSULE PO (10:21)
[2022-11-24] MEDS: OXYCODONE (CR) 10 MG TAB.ER.12H PO (10:21)
[2022-11-24] MEDS: SODIUM CHLORIDE 0.9 % (FLUSH) 10 ML SYRINGE IVF (10:30)
[2022-11-24] MEDS: LACTATED RINGERS 1000 ML 1,000 ML 100 ML IV ×2 (10:30→13:44)
--- NOTE | 2022-11-24 10:50 | SUR.PREOP ---
Patient provided home covid negative results to RN.
--- NOTE | 2022-11-24 11:39 | SUR.PREOP ---
TIME?OUT:?1140 PT/RN/MDA?VERIFICATION?OF?SURGICAL?SITE,?PROCEDURE,?AND?CONSENT OBTAINED?PRIOR?TO?INVASIVE?PROCEDURE.
[2022-11-24] MEDS: fentaNYL 100 MCG/2 ML inj IVP (11:40)
[2022-11-24] MEDS: MIDAZOLAM HCL 1 MG/ML inj IVP (11:40)
[2022-11-24] MEDS: CEFAZOLIN 1 GM inj 3 GM IVP (12:35)
--- NOTE | 2022-11-24 13:21 | W.PM.NB ---
Nerve Block Nerve Block Time Seen by Provider: 11:00 Date Seen: 11/24/22 Type of block requested by surgeon for post-operative analgesia: supraclavicular Side: left Time out performed: Yes Verification of patient name: Yes Verification of date of : Yes Site marking: site marked Name of person performing procedure: James Wagner Continuous monitoring Was continuous monitoring of O2 sat, B/P, ekg monitor tech, recorded every 15 minutes?: Yes Procedure Checklist: sterile prep, needles and gloves Ultrasound guided. Images saved: Yes Medications given in 5ml increments after negative aspiration: Ropivicaine %: 0.5 mL: 20 Needle gauge: 20 Decadron (mg): 10 Precedex (mcg): 25 Patient tolerated procedure well: Yes Block Charges Block Charge (with Pro Fee): Brachial Plexus Use of Ultrasound Machine for Block: Yes- US Guidance/pain block
--- NOTE | 2022-11-24 14:12 | P.ORPRC_ITS ---
Procedure Note Date of procedure: 11/24/22 Procedure: PREOPERATIVE DIAGNOSIS: Left shoulder recurrent rotator cuff tear POSTOPERATIVE DIAGNOSIS: Left shoulder recurrent rotator cuff tear NAME OF OPERATION: Left shoulder arthroscopic evaluation, revision mini open rotator cuff repair SURGEON: Cuauhtemoc Christianson MD [employer] COUNSEL: Ligia Avina PA-C ANESTHESIA: Supraclavicular block plus general endotracheal ESTIMATED BLOOD LOSS: 20 mL COMPLICATIONS: None SPECIMENS: None DRAINS: None PREOPERATIVE ANTIBIOTICS: Ancef 3 grams INDICATIONS: The patient is a 67-year-old previously underwent successful left shoulder mini open rotator cuff repair. He had an injury at 3 weeks postop and increasing pain. Follow-up MRI scan shows recurrent tearing of the entirety of his rotator cuff repair. Operative intervention was recommended. The risks, benefits and expected outcomes were discussed in detail. These included but were not limited to: Infection, bleeding, injury to blood vessel or nerve, venous thromboembolism. All questions were answered to their satisfaction. PROCEDURE: A supraclavicular block was placed by Anesthesia. General anesthesia was administered. The patient was placed in the high beach chair position. The right shoulder was prepped and draped in the usual sterile fashion. The glenohumeral joint was infiltrated with 20 mL of normal saline with epinephrine. The posterior portal was established, the arthroscope was introduced. The anterior portal was established, Diagnostic arthroscopy was performed with findings as follows: The biceps and biceps anchor are intact. The anterior, posterior and superior labrum are normal. Articular surfaces on the humeral head and glenoid are normal. There are no loose bodies. There is a recurrent full-thickness tear of the supraspinatus and infraspinatus with retraction. The arthroscope was placed in the subacromial space, the lateral portal was established. The 2 margin convergence sutures previously placed were still intact. Everything else was torn apart. We placed another margin convergence suture using the scorpion, tying a sliding, locking [place] loop knot. Arthroscopic instruments were removed. The previously placed mini open rotator cuff repair incision was utilized again. It was extended both proximally and distally. Subcutaneous dissection was taken with electrocautery to the deltoid. Full-thickness anterior and posterior skin flaps were elevated off of the deltoid. The deltoid was divided in line with its fibers. The static retractor was placed. The bicipital groove was entered with electrocautery. We retracted the biceps laterally and debrided the lesser tuberosity with the Shabbirpert rongeur. A SutureTape was placed in an inverted mattress in the subscap. This was placed in a SwiveLock anchor in the lesser tuberosity to stabilize the biceps and repair of the upper subscap. Attention was then turned to the supra and infraspinatus repair. Two [employer] SwiveLock anchors were placed just off the articular surface. Both limbs of the FiberWire and fiber tape were passed using the scorpion. We tied the 2 central FiberWire sutures over the rotator cuff. We then proceeded with a lateral row of SwiveLock anchors x 2 crossing the FiberTape and incorporating the FiberWire and FiberTape into each lateral row anchor. This provides a decent, revision repair of the rotator cuff. The wound was irrigated with normal saline off the pump. The deltoid was repaired with an 0 Vicryl in an interrupted [id number] fashion. Subcutaneous tissues were closed with a 3-0 Vicryl. Skin was closed with a 3-0 Monocryl in a subcuticular fashion. A dry dressing, polar care and sling were applied. Sponge and needle counts were correct x2. The patient tolerated the procedure well. There were no apparent complications. They were carefully transferred to the hospital bed and taken to the postanesthesia care unit in satisfactory condition. PLAN: The patient will be discharged to home. No active range of motion of the shoulder will be allowed for 6 weeks postoperatively. They can work on active range of motion of the elbow, wrist and fingers. They will follow up in the office next week for a wound check. X-rays will not be needed. At that time he can continue on a home therapy program consisting of Codman pendulum exercises, active range of motion of the elbow, wrist and fingers. Additionally, at that time an appointment to begin formal physical therapy should be made for 6 weeks postop, after I see him for the 6 week postoperative visit.
--- NOTE | 2022-11-24 14:49 | W.ANESCHARGE ---
Anesthesia Charges Start Date/Time Anesthesia Start Date: 11/24/22 Anesthesia Start Time: 12:20 Stop Date/Time Anesthesia Stop Date: 11/24/22 Anesthesia Stop Time: 14:52
--- NOTE | 2022-11-24 15:25 | SUR.PHASEI ---
Pt remains stefani, Vicky Wagner CRNA approved return to [facility] to continue recovery there.
== END 2022-11-24 16:11 | disposition home or self-care (01) ==
PROVIDERS: PCP Family Medicine; Visit Provider Orthopaedic Surgery
PROC: (CPT 23412; principal; 2022-11-24 12:00)
DX: M75.102 Unspecified rotator cuff tear or rupture of left shoulder, not specified as traumatic (principal); Z53.33 Arthroscopic surgical procedure converted to open procedure; G60.8 Other hereditary and idiopathic neuropathies; E66.01 Morbid (severe) obesity due to excess calories; Z68.42 Body mass index [BMI] 45.0-49.9, adult
CPT/HCPCS: 29805; 23412; 01630; 76942; A9270; C1713; J0330; J0690; J1100; J1170; J2250; J2370; J2405; J2704; J2795; J3010; J3490; J7120; L3670

== ENCOUNTER 2022-12-30 21:21 | Emergency (ER) | payer MEDICARE, SELFPAY ==
[2022-12-30 21:31] VITALS: BP 160/95; PULSE 84; RESP 18; TEMP 37; O2SAT 99; BMI 46.8
--- NOTE | 2022-12-30 21:31 | CRLHL7_ITS ---
For Patients: As a result of the Century Cures Act, medical imaging exams and procedure reports are released immediately into your electronic medical record. You may view this report before your referring provider. If you have questions, please contact your health care provider. INDICATION: Status post fall. History of knee surgery. COMPARISON: None available. FINDINGS: The left knee was examined with AP, lateral, and sunrise views for a total of three views. The components of a stemmed, articulated left total knee prosthesis are in anatomic alignment. There is lucency seen around the cement/bone interface in the distal femur, suggesting loosening. There is no sign of loosening of the proximal tibial component. There is no sign of fracture of the [place] osseous structures. The patella is prominently flattened and is located abnormally low, representing patella baja. This suggests disruption of the quadriceps tendon. There is a moderate-sized ossification located lateral to the patella on the sunrise view which could be a large fracture fragment chronically displaced laterally from the patella or could be soft tissue calcification Small ossifications are seen superior to the patella, consistent with previous soft tissue injury. There is a moderate suprapatellar joint effusion. There is mild diffuse prepatellar and suprapatellar soft tissue swelling. IMPRESSION: No sign of acute osseous injury, with no sign of fracture or dislocation. Loosening of the distal femoral component of the stems, articulated left total knee prosthesis. Patella baja, inferior positioning of the patella suggesting disruption of the quadriceps tendon. Flattened, abnormal appearing patella, probably postsurgical. Cannot exclude a chronic, laterally displaced fracture fragment of the patella on the sunrise view. Dictated by Jj Wyatt MD @ 12/30/2022 10:12:59 PM (Electronically Signed)
--- NOTE | 2022-12-30 22:02 | ED.LOWEXIN ---
HPI - Extremity Injury (Lower) General Chief Complaint: Extremity Pain/Injury, Lower Stated Complaint: Fell down the stairs, Left knee injury Time Seen by Provider: 12/30/22 21:45 History of Present Illness HPI Narrative: 67-year-old man presenting to the emergency department, sounds like drove himself here. Complaint of left knee pain in particular. Tried to catch the railing with his left hand unfortunately has had recent procedure in his left shoulder but that overall feels all right. Ended up falling down 2-3 stairs with most of his weight ending up on his left knee; this is the area of most pain. Indicates the medial aspect but then also brodie lateral aspect. He did land on his right knee as well but not nearly to the degree that he did with his left. History is complicated by bilateral knee replacement but then at least 2 revisions/replacements of the left knee. Complications included postprocedural patellar fracture and post procedural infections. If he has another problem with this knee he reports there was not enough bone left to replace again. Denies hitting his head. No neck or back pain. Not complaining of hip pain. No chest pain or abdominal pain or shortness of breath. He did hurt his right ankle little bit; may have sprained did but is able to bear weight. Related Data Home Medications Medication Instructions Recorded Confirmed atorvastatin 20 mg tablet 20 mg PO HS 06/16/22 12/30/22 bupropion HCl 150 mg 24 hr tablet, 300 mg PO DAILY 06/16/22 12/30/22 extended release gabapentin 300 mg capsule 300 mg PO TID 06/16/22 12/30/22 multivitamin 1 tab PO DAILY 06/16/22 12/30/22 rizatriptan 10 mg tablet (Maxalt) 10 mg PO Q2-4H PRN 06/16/22 12/30/22 fluoxetine 20 mg capsule 60 mg PO DAILY 09/11/22 12/30/22 celecoxib 100 mg capsule 100 mg PO BID PRN 10/01/22 12/30/22 duloxetine 20 mg capsule,delayed 20 mg PO DAILY 12/30/22 12/30/22 release duloxetine 60 mg capsule,delayed 60 mg PO DAILY 12/30/22 12/30/22 release Allergies Allergy/AdvReac Type Severity Reaction Status Date / Time No Known Drug Allergies Allergy Verified 12/30/22 21:34 Review of Systems Status of ROS: Reports: 6 or more systems reviewed and unremarkable except as noted in History and below [facility] Medical History Carpal tunnel syndrome ?G56.00 - Carpal tunnel syndrome, unspecified upper limb (ICD-10) Chronic pain ?G89.29 - Other chronic pain (ICD-10) Compression fracture Depression ?F32.A - Depression, unspecified (ICD-10) DJD (degenerative joint disease) ?M19.90 - Unspecified osteoarthritis, unspecified site (ICD-10) GERD (gastroesophageal reflux disease) ?K21.9 - Gastro-esophageal reflux disease without esophagitis (ICD-10) High cholesterol ?E78.00 - Pure hypercholesterolemia, unspecified (ICD-10) HLD (hyperlipidemia) ?E78.5 - Hyperlipidemia, unspecified (ICD-10) Morbid obesity ?E66.01 - Morbid (severe) obesity due to excess calories (ICD-10) MRSA (methicillin resistant staph aureus) culture positive ?Z22.322 - Carrier or suspected carrier of Methicillin resistant Staphylococcus aureus (ICD-10) Neuralgia, neuritis, and radiculitis, unspecified Septic joint of left knee joint ?M00.9 - Pyogenic arthritis, unspecified (ICD-10) Sleep apnea ?G47.30 - Sleep apnea, unspecified (ICD-10) Upper respiratory infection ?J06.9 - Acute upper respiratory infection, unspecified (ICD-10) Surgical History History of appendectomy ?Z90.49 - Acquired absence of other specified parts of digestive tract (ICD-10) History of carpal tunnel surgery of left wrist (10/08/04) ?Z98.890 - Other specified postprocedural states (ICD-10) History of elbow surgery (02/29/20) ?Z98.890 - Other specified postprocedural states (ICD-10) History of left knee replacement ?Z96.652 - Presence of left artificial knee joint (ICD-10) History of surgery on arm ?Z98.890 - Other specified postprocedural states (ICD-10) Previous back surgery ?Z98.890 - Other specified postprocedural states (ICD-10) S/P left knee arthroscopy (01/25/08) ?Z98.890 - Other specified postprocedural states (ICD-10) S/P ORIF (open reduction internal fixation) fracture (08/07/19) ?Z98.890 - Other specified postprocedural states (ICD-10) ?Z87.81 - Personal history of (healed) traumatic fracture (ICD-10) S/P right knee arthroscopy (06/23/06) ?Z98.890 - Other specified postprocedural states (ICD-10) Status post arthroscopy of left shoulder (10/26/22) ?Z98.890 - Other specified postprocedural states (ICD-10) Status post left rotator cuff repair (11/24/22) ?Z98.890 - Other specified postprocedural states (ICD-10) Status post right knee replacement ?Z96.651 - Presence of right artificial knee joint (ICD-10) Family History Mother Breast cancer Father Alcohol dependence Coronary artery disease Brother Stroke Social History Narrative: Closest family are his son Emery and daughter Sandrita. 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 Code status is full. He drinks 3 beers per weekend. Remote history of smoking a half pack of day for 25 years. Now occasionally smokes a pipe or cigar but not every day Highest level of school completed/degree received: don't know Smoking Status: Former smoker What tobacco products do you use: cigars and pipe Do you use any of these nicotine containing products: None Second hand tobacco smoke exposure: No How often do you have a drink containing alcohol: monthly or less Alcohol type: beer, wine and hard liquor How often do you have six or more drinks on one occasion: Never AUDIT-C Alcohol total score: 1 Non-prescribed substance use: denies use Caffeine: Yes (4 cups/day) service: No Exam Narrative: Exam Narrative: Pleasant. Large man. Clearly in pain. Otherwise jovial with good energy. Groans or gasps with movement but otherwise not demonstrating. Is breathing easily. Neck is supple. Back and neck nontender. Head looks to be atraumatic. Abdomen is overweight. Moving upper extremities without difficulty. There is some crepitus palpable in left shoulder. Right knee has very subtle abrasion with anterior surgical scar, well healed. Right ankle subjective pain with increased dorsiflexion suggesting also small effusion. No bony areas of pain to palpation over the malleoli navicular or base of 5th metatarsal. Any movement of the left leg tends to cause pain in this left knee. There is large surgical scar over the anterior knee upper tibia and distal femur. Patella did appears to be a palpable in bilateral aspects of the knee. Again there is somewhat of a depression in the supra patellar area. While it causes a lot of pain he has good strength to extension at the knee. Pain to palpation really anywhere in the knee. Seems to be a knee effusion. There is an abrasion on the anterolateral knee-superficial. Exquisite pain to palpation around this area as well. Const: Vital Signs, click to edit/add: Vital Signs - 24 hr 12/30/22 21:31 Temperature 98.6 F Pulse Rate [Right Pulse Oximeter] 84 Respiratory Rate 18 Blood Pressure [Le ft Upper Arm] 160/95 H Pulse Oximetry 99 Oxygen Delivery Me thod Room Air Documenting provider has reviewed patient's vital signs: yes Course Vital Signs Vital signs: Initial Vital Signs Temperature 98.6 F 12/30/22 21:31 Temperature Source Temporal Artery Scan 12/30/22 21:31 Pulse Rate 84 12/30/22 21:31 Respiratory Rate 18 12/30/22 21:31 Blood Pressure 160/95 H 12/30/22 21:31 Blood Pressure Mean 116 12/30/22 21:31 Blood Pressure Position Sitting 12/30/22 21:31 Pulse Oximetry 99 12/30/22 21:31 Oxygen Delivery Method Room Air 12/30/22 21:31 Vital Signs Temperature 98.6 F 12/30/22 21:31 Pulse Rate 84 12/30/22 21:31 Respiratory Rate 18 12/30/22 21:31 Blood Pressure 160/95 H 12/30/22 21:31 Pulse Oximetry 99 12/30/22 21:31 Oxygen Delivery Method Room Air 12/30/22 21:31 Temperature 98.6 F 12/30/22 21:31 Pulse Rate 84 12/30/22 21:31 Respiratory Rate 18 03/29/23 21:31 Blood Pressure 160/95 H 12/30/22 21:31 Pulse Oximetry 99 12/30/22 21:31 Oxygen Delivery Method Room Air 12/30/22 21:31 MDM - Extremity Injury (Lower) MDM Narrative Medical decision making narrative: Imaging has been ordered by the time I am seeing Mr. Miller. I had not reviewed the images yet. Does not seem to have acquired other injuries that would require imaging the on the left knee. I would have concern for destabilization of this hardware or periprosthetic fracture. Reviewing images I can see some lucency in particular in the distal aspect of the femur along the hardware. I do not see acute bony abnormality though there are numerous changes in the knee. Patella is split and low. Did offer some pain medication once he is able to confirm ride. Is ordered for Dilaudid and given ibuprofen. Placed in knee immobilizer. Is given ice pack during time here but he does also have icing systems at home due to repeat surgeries. Declined wheelchair at this time. Collected by daughter for home See patient discharge plan Discharge Plan Discharge Clinical Impression: Loosening of knee joint prosthesis, Abrasion, Knee pain Patient Disposition: Home w/ Parent or Adult Condition: Stable Additional Instructions: We have sent x-ray images to both [facility] and [facility]. I would call in the morning to have your orthopedist look at those images and to discuss next plans. Knee immobilizer. Crutches. Ice a few times daily over the next few days. I'm sorry this is happening again. Percocet from [facility]. I suspect you know to avoid constipation if taking opiates regularly. Might pair with senna 1-2 times daily and definitely stay well-hydrated. If you do not have one we will supply you with a urinal as is going to be hard to get around for a little while. Activity Level: Activity as Tolerated Discharge Diet: Regular Prescriptions: No Action atorvastatin 20 mg tablet 20 mg PO HS gabapentin 300 mg capsule 300 mg PO TID bupropion HCl 150 mg tablet extended release 24 hr 300 mg PO DAILY rizatriptan [Maxalt] 10 mg tablet 10 mg PO Q2-4H PRN Rx Instructions: do not exceed 3 doses per 24 hrs multivitamin Tablet 1 tab PO DAILY fluoxetine 20 mg capsule 60 mg PO DAILY celecoxib 100 mg capsule 100 mg PO BID PRN duloxetine 20 mg capsule,delayed release(DR/EC) 20 mg PO DAILY duloxetine 60 mg capsule,delayed release(DR/EC) 60 mg PO DAILY Follow Up/Referrals: Sanya Shah MD [Primary Care Provider] - Stand Alone Forms: [employer] Instructions
== END 2022-12-30 23:11 | disposition home or self-care (01) ==
PROVIDERS: Emergency Provider Family Medicine; PCP Family Medicine
DX: M25.562 Pain in left knee (principal); T84.033A Mechanical loosening of internal left knee prosthetic joint, initial encounter
CPT/HCPCS: 73562; 99284

== ENCOUNTER 2023-02-05 07:30 | Outpatient (RCR) | payer MEDICARE, SELFPAY ==
--- NOTE | 2022-11-06 09:09 | PT.OPEX ---
PT Onward Outpatient Eval PT [facility] Outpatient Eval Start: 11/06/22 07:21 Freq: Status: Active Protocol: Document 11/06/22 07:32 GREGG (Rec: 11/06/22 09:09 GREGG [id number]) E-signed By Katharine Vaughan PT Physical Therapy Outpatient Evaluation Insurance Information Insurance Name Medicare B,Blue Cross/Blue Shield Insurance Information/Comments MCARE/ BCBC Medical Diagnosis LEFT RTC SAD, DCE, MINI OPEN RCR Treating Diagnosis LEFT SHOULDER PAIN DECREASED ROM DECREASED STRENGTH Referring MD DONNA CHACKO PA-C (DR. GIOVANY PARKER) Subjective Subjective PATIENT REPORTS POTENTIALLY COMPRISING HIS SURGERY WHEN REFLEXIVELY REACHING OUT TO CATCH A 4YO RUNNING PASSED HIM. HE HAD A F/U WITH DR. PARKER YESTERDAY AND AN MRI IS SCHEDULED ON 11/11/22 TO ASSESS REPAIRS. TODAY HE C/O 1-2/10 PAIN AT REST AND 4-5/10 WHEN DOING SOMETHING I'M NOT SUPPOSED TO. HE HAS HAD MANY ORTHOPAEDIC SURGERIES IN THE PAST 20 YEARS THAT HE FEELS, THIS PAR FOR THE COURSE B/C MY KNEE WAS REDONE SEVERAL TIMES AND NOW THEY WONT TOUCH IT B/ C THERE NO BONE TO WORK WITH. Pain Comments 1-2/10 TO 3-4/10 ANTERIOR / LATERAL LEFT SHOULDER Date of Last Physician Visit 11/05/22 Date of Surgery (If applicable) 10/26/22 Current Work Status Retired Occupation [employer]IRED [employer] Preferred Name ANDERSON Precautions Treatment Precautions/Contraindications SLING X 6 WEEKS NO AROM X 6 WEEKS PROM ONLY NWB LUE Weight Bearing Status Non-Weight Bearing Therapy Limitations/Systems Review Not Limited Objective Other/Pertinent Objective LEFT ROM: AROM: NT X 6 WEEKS PROM: MEASURED IN PLAN OF SCAPULA S'FLEX 95 S'ABD 85 S'ER 16 MEASURED [address]BD, PLANE OF SCAPULA S'IR NT ELOW ROM FLEX 140 EXT +12 (LACKING FULL EXT) MMT: DNT Assessment Assessment/Impression 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 PMHX INCLUDES BUT NOT LIMITED TO DEPRESSION, GERD, HLD, H/O MRSA,LEG CELLULITIS D /T STEPPING ON A NAIL 09/06/22, SLEEP APNEA W/CPAP, LEFT TKA WITH REVISION AND PATELLA FRACTURE, RIGHT TKA, LUMBAR DISCECTOMY, CARPEL TUNNEL SURGERY, LEFT BICEPS TENDON REPAIR (2020). HE PRESENTS TODAY AT P0D11 WITH REPORTS OF POTENTIALLY COMPROMISING HIS SURGERY D/T REFLEXIVELY REACHING OUT TO CATCH THE 4YO RUNNING BY ME. HE HOSTS A REFUGEE FAMILY WITH SMALL CHILDREN SEEKING ASYLUM HERE IN THE [place]. HE FOLLOWED UP WITH DR. PARKER YESTERDAY AND HAS AN MRI ORDERED FOR 11/11 TO ASSESS FOR ANY COMPROMISE. WITH HIS RICH H/O ORTHOPAEDIC SURGICAL REPAIRS/ INTERVENTION, HE IS WELL VERSED WITH SYMPTOM MGMT USING ICE, PRN TYLENOL, AND WEARING HIS SLING INSTRUCTED WITH 1-2/10 PAIN ABOUT THE LEFT ANTEROLATERAL SHOULDER. PATIENT HAS MIN ECCHYMOSIS TO THE DISTAL BRACHIUM AND LATERAL CHEST WALL WITH INCISION APPROXIMATED BY PRIMARY INTENTIONS (GLUE) AND MEASURING 3.5CMX0.1CMX0.0CM. HIS INCISION IS PRISTINE AND ABSENT OF ANY S/S OF INFECTION . D/T HIS H/O INFECTION/ MRSA, EDUCATION PROVIDED ON MONITORING FOR FEVER, REDNESS, OR ANY DISCHARGE AND NOTIFYING PHYSICIAN SHOULD ANY ARISE. HE HAS RESTRICTIONS FOR PROM ONLY AND TO WEAR HIS SLING FOR 6 WEEKS UNLESS BATHING, DRESSING, OR PERFORMING THERAPY. TODAY, HE MEASURES 90 DEGREES S'FLEX , 84 DEGREES S'ABD, AND 16 DEGREES ER ALL MEASURED IN SCAPULAR PLANE AND ER MEASURED WITH 45 DEGREES ABD. PATIENT PERFORMED AND EDUCATED ON HIS HEP CONSISTING ELBOW, WRIST AND HAND AROM ALONG WITH PENDULUM (CIRCLES, SIDE/SIDE, FWD/BKWD) X 20 EA. PATIENT REQUIRED DEMONSTRATION AND SEVERAL VC FOR AROM DURING PENDULUM AND TO THINK WET NOODLE. WITH CORRECTION, HE WAS ABLE TO PERFORM CORRECTLY. HE WILL BENEFIT FROM SKILLED PHYSICAL THERAPY TO PROVIDE PROM TO LEFT SHOULDER, EDUCATION/INSTRUCTION PATHOPHYSIOLOGY OF HIS SHOULDER ANOMALIES AND REPAIR, PROGRESS THROUGH HIM THROUGH THE RCR PROTOCOL, AND ADDRESS POSTURAL STRENGTHENING AND BODY MECHANICS D/T THE [place]RI[place] OF FUNCTIONAL CHALLENGES HE RECOVERS. DUE TO THE AFOREMENTIONED DEFICITS AND RESTRICTIONS, HE IS APPROPRIATE FOR PHYSICAL THERAPY TO ALLOW FOR INDEPENDENT ADL'S, RETURN TO LPN MEDICAL ASSISTANT AND PEER/ FAMILY CENTERED ACTIVITIES SAFELY. Primary Functional Limitations IMPAIRED MOBILITY IMPAIRED ADL'S IMPAIRED REACHING/USE OF LUE LUE WEAKNESS POSTURAL WEAKNESS GT ABNORMALITIES Plan of Care Rehabilitation Potential Good Physical Therapy Goals ST. WILL BE COMPLIANT WITH POST OPERATIVE RESTRICTIONS IN 2 WEEKS 2. PATIENT WILL IMPROVE PROM FROM 90 DEGREES FLEX TO 12O DEGREES FLEX IN 4 WEEKS 3. PATIENT WILL IMPROVE FROM 16 DEGREES ER (AT 45 DEGREES ABD/SCAPULAR PLANE) TO 30 IN WEEKS LTC: 1. PATIENT WILL DEMONSTRATE PROM S'FLEX 150, S'ER 45, S'IR 45 IN 8 WEEKS 2. PATIENT WILL REACH DOWN TO THE FLOOR, FWD<90 DEGREES S' FLEX WITH PAIN <2/10 3. PATIENT WILL BE INDEPENDENT WITH ADL'S/IADL'S IN 8 WEEKS Coordination/Communication With Referral Source Treatment Plan/Direct Interventions Electrical Stimulation,Heat, Ice/Cold/Vasopneumatic,Joint Mobilization,Therapeutic Activities,Therapeutic Exercises Frequency/Duration 2X/WK X 3-4 MO Patient Will Be Discharged From Therapy Completion of LTG(s), Independent w/HEP Evaluation Billing Untimed Code Treatment Minutes 20 PT Eval No Charge No Complexity Low Certification Information Initial Certification Date 11/06/22 Ending Certification Date 01/29/23 Provider Signature Shows Agreement With POC & Medical Necessity Physician Signature & Date Requested Please Sign/Date Here Physician Comment/Change : Physician NPI Number #
--- NOTE | 2023-01-11 13:02 | PT.OPDNX ---
PT [facility] Daily Note PT [facility] Daily Note Start: 11/06/22 07:21 Freq: Status: Active Protocol: Document 01/11/23 09:08 GREGG (Rec: 01/11/23 12:57 GREGG [id number]) E-signed By Katharine Vaughan, PT PT OP Daily Progress Note Visit Information Note Type Re-Evaluation Visit Number 8 Insurance Information Insurance Name Medicare B,Blue Cross/Blue Shield Insurance Information/Comments MCARE/ BCBC Medical Diagnosis LEFT RTC SAD, DCE, MINI OPEN RCR (10/26/22) REVISION 11/24/22 MINI OPEN RCR Treating Diagnosis LEFT SHOULDER PAIN DECREASED ROM DECREASED STRENGTH Referring MD DONNA CHACKO PA-C (DR. GIOVANY PARKER) Subjective Subjective PATIENT RETURNS TODAY AFTER A REVISION ON HIS LEFT SHOULDER (11/24/22) AND REPORTS THAT HE FELL AGAIN AND LIKELY COMPRIMISED HIS LEFT TKA. HE STATES, MY SHOULDER IS FEELING GREAT.MY KNEE ON THE OTHER HAND NEEDS TO BE FIXED AGAIN. Pain Comments LEFT KNEE 01/11 LEFT SHOULDER -12/11 Preferred Name ANDERSON Precautions Treatment Precautions/Contraindications 01/11/23 BEGIN AROM LEFT SHOULDER Weight Bearing Status Weight Bear as Tolerated Home Exercise Home Exercise Comments EMPHASIZED PAINFREE ROM AND EXERCISE INTENSITY SHOULD BE ADJUSTED Objective Other/Pertinent Objective DOS: 10/26/22; REVISION 11/24/22 AROM: S'FLEX 178 S'ABD 172 S'ER 50 S'IR L2 PROM: WNL MMT: S'FLEX 3+/5 S'ABD 3+/5 S'ER 3+/5 Patient Instructed in Risks/Benefits Yes Therapeutic Exercise Therapeutic Exercise Minutes (minutes) 25 Therapeutic Exercise: To Restore [place] X 5 MIN (FLEX, SCAPTION Functional Status , ABD) UBE 2.5 FWD/2.5 BKWD SCAP SQUEZE 20 X 3 SEC BKWD [place] X 20 ISOMETRIC SUB MAX (EXT, FLEX, ABD, ER) PRONE ROW X 15 PRONE S'EXT X 15 PRONE H'ABD X 15 PRONE SCAPTION X 15 Manual Therapy Techniques Manual Therapy Minutes (minutes) 10 Manual Therapy Techniques PROM TO RIGHT SHOULDER Treatment Minutes Untimed Code Treatment Minutes 20 Timed Code Treatment Minutes 35 Total Treatment Time 55 Billing Units Manual Therapy Units 1 Therapeutic Exercise Units 2 Re-Evaluation Units 1 Assessment/Impression Assessment/Impression PATIENT RETURNS TODAY AFTER 6 WEEKS AT HOME PERFORMING PENDULUMS FOLLOWING REVISION OF HIS RTC PERFORMED ON 2/21/ 23. HE F/U WITH DR. KEITH RUFF, DONNA CHACKO, EARLIER TODAY AND WAS CLEARED TO BEGIN PHYSICAL THERAPY. HE ALSO REPORTS FALLING AND LANDING DIRECTLY ON HIS LEFT KNEE (TKA ) AND, INITIALLY, WAS UNABLE TO WALK. HE HAD HIS KNEE XRAYED AND IT REVEALED LIKELY QUAD TENDON DAMAGE HIS PATELLA SAT INFERIORLY WELL LOSENING OF THE COPONENTS. HE WILL SEE A SPECIAL ABOUT HIS LEFT KNEE. TODAY HE MEASURED S'FLEX 178, S'ABD 172 , S'ER 50, S'IR L1. HE PERFORMED SUB MAX ISOMETRICS, AAROM S'FLEX, S'ABD, EXT, AND ER WITH SPECIFIC INSTRUCTIONS TO AVOID ANY PAIN WITH EXERCISES. HE VERBALIZED UNDERSTANDING. WE WILL CONTINUE TO ADVANCE ROM, STRENGTH AND STABILIZATION PER PROTOCOL. HE WILL RETURN IN 6 WEEKS FOR HIS NEXT SHOULDER F /U Plan of Care Physical Therapy Goals ST. PATIENT WILL REPORT PAIN <2 /10 IN 4-6 WEEKS 2. PATIENT WILL IMPROVED FROM 3+/5 TO 4/5 FOR S'FLEX, S'ABD TO FACILITATE REACHING OVERHEAD IN 4-6 WEEKS 3. PATIENT WILL BE INDEPENDENT WITH HIS HEP IN 4-6 WEEKS. LTG. 1. PATIENT WILL IMPROVE SHOULDER STRENGTH TO 4+5 TO RETURN TO CELLULAR EQUIPMENT INSTALLER, RECREATIONAL ACTIVITIES, OR ANY ACTIVITY THAT WOULD DICTATE REACHING OVERHEAD IN 8 -10 WEEKS Recertification Information Initial Certification Date 01/11/23 Recertification Start Date 04/05/23 Provider Signature Shows Agreement With POC & Medical Necessity
== END 2023-05-03 14:19 | disposition home or self-care (01) ==
PROVIDERS: PCP Family Medicine; Visit Provider Physician Assistant Surgical
DX: Z98.890 Other specified postprocedural states (principal); Z51.89 Encounter for other specified aftercare
CPT/HCPCS: 97110; 97140; 97161; 97164

== ENCOUNTER 2023-05-13 13:00 | Outpatient (RCR) | payer MEDICARE, SELFPAY | END 2023-07-12 09:12 | disposition home or self-care (01) | PROVIDERS: PCP Family Medicine; Visit Provider Family Medicine | DX: M19.079 Primary osteoarthritis, unspecified ankle and foot (principal); M25.571 Pain in right ankle and joints of right foot; M25.572 Pain in left ankle and joints of left foot; Z51.89 Encounter for other specified aftercare | CPT/HCPCS: 97110; 97140; 97161 ==

== ENCOUNTER 2023-07-07 12:48 | Outpatient (CLI) | payer MEDICARE, SELFPAY ==
--- NOTE | 2023-07-07 13:00 | MR_ITS ---
[address] [address] Phone:?[phone] Fax:?[phone] Referring Physician Information: Cuauhtemoc Christianson M.D. [address] [place] [id number] Phone:?[phone] Fax:?[phone] Patient:?Kori Miller D.O.B:?1955 Sex:?Male Phone:?[phone] [facility] MRN:?[id number] Exam Date:?07/07/2023 EXAM: MRI of the LEFT SHOULDER, without contrast CLINICAL: Left shoulder/upper arm injury. Evaluate long head biceps. COMPARISONS: Prior MRI examinations including 11/19/2022. TECHNICAL: Multiplanar multisequence MRI of the left shoulder was obtained. SEDATION: None. CONTRAST: None. FINDINGS: Rotator cuff: Supraspinatus/Infraspinatus: Postoperative changes of prior rotator cuff repair surgery similar to prior exam. There is full-thickness tearing throughout the distal supraspinatus tendon extending into the anterior distal infraspinatus tendon with retraction of torn tendon fibers to the level of the glenohumeral joint similar to prior examination. Fatty atrophy of the infraspinatus greater than the supraspinatus muscle appears similar to prior exam. Teres minor: No tendinosis, tear or atrophy. Subscapularis: Postoperative changes of prior tendon repair surgery. There is full-thickness tearing throughout the distal tendon with retraction of torn tendon fibers to the level of the glenohumeral joint. Mild fatty atrophy of the muscle belly. Bursae: Subacromial-subdeltoid: Increased bursal fluid likely secondary to full- thickness rotator cuff tendon tearing. Subcoracoid: No significant bursal fluid. Coracoacromial arch: Acromion morphology: Postoperative changes of prior acromioplasty. Acromiohumeral space: Within normal limits. Coracohumeral space: Within normal limits. Biceps tendon, long head: Evaluation is relatively limited by artifact. There is medial dislocation of the long head biceps tendon from the bicipital groove extending into the anterior glenohumeral joint. Ill-defined tendinosis and possibly mild partial tearing involves the dislocated tendon. Glenohumeral joint: Small glenohumeral joint effusion is present with synovitis Articular cartilage: Evaluation is limited on the axial sequences secondary to artifact. Deep chondral delamination involving the inferior glenoid appears similar to prior examination, with underlying subchondral cystic change involving the inferior glenoid. No discrete new chondral defects identified as visualized. Capsule: There is mild thickening of the inferior glenohumeral ligament with edema adjacent to the inferior glenohumeral ligament. Labrum: Evaluation is limited on the axial sequence secondary to artifact. Ill-defined fraying and tearing throughout the majority of the labrum appears similar to prior examination. No perilabral cyst identified. Bones: Postoperative changes of prior rotator cuff repair surgery with associated surgical anchors in place within the proximal humerus. No new osseous fracture site is identified. Degenerative subchondral cystic change involving the inferior glenoid appears similar to prior examination. Acromioclavicular joint: Postoperative changes of prior distal clavicle/AC joint resection similar to prior exam. IMPRESSION: 1. Postoperative changes of prior rotator cuff repair surgery. Retracted full- thickness tearing throughout the distal supraspinatus tendon extending into the anterior distal infraspinatus tendon is similar to prior examination with fatty atrophy of the infraspinatus greater than the supraspinatus muscles similar to prior exam. 2. Postoperative changes of prior subscapularis tendon repair surgery. There is full-thickness tearing throughout the subscapularis tendon with retraction of torn tendon fibers to the level of the glenohumeral joint. Mild fatty atrophy of the subscapularis muscle belly. 3. Medial dislocation of the long head biceps tendon from the bicipital groove extending into the anterior glenohumeral joint. Suspect ill-defined tendinosis and possibly mild partial tearing of the dislocated biceps tendon. 4. Fraying and tearing throughout the majority of the glenoid labrum similar to prior exam. 5. Deep chondral delamination involving the inferior glenoid similar to prior examination with underlying subchondral cystic change. 6. Postoperative changes of prior distal clavicle/AC joint resection and prior acromioplasty similar to prior exam. 7. Mild thickening of the inferior glenohumeral ligament with adjacent edema may reflect postoperative changes but also can be seen in patients with adhesive capsulitis, recommend close clinical correlation. JCZ Electronically signed on 07/08/2023 7:47:00 AM by Buzz Odom D.O.
== END 2023-07-07 12:49 | disposition home or self-care (01) ==
LOC: MRI 12:49
PROVIDERS: PCP Family Medicine; Visit Provider Orthopaedic Surgery
DX: M25.512 Pain in left shoulder (principal); M75.102 Unspecified rotator cuff tear or rupture of left shoulder, not specified as traumatic; S49.92XA Unspecified injury of left shoulder and upper arm, initial encounter; M75.02 Adhesive capsulitis of left shoulder; Z98.890 Other specified postprocedural states
CPT/HCPCS: 73221

== ENCOUNTER 2023-07-14 09:41 | Emergency (ER) | payer MEDICARE, SELFPAY ==
[2023-07-14] VITALS (15 sets, daily range): BP systolic 129–142; BP diastolic 82–118; PULSE 61–72; RESP 24; TEMP 36.2; O2SAT 96–99; BMI 48.0
--- NOTE | 2023-07-14 10:11 | ED_ITS ---
HPI - General Adult General Time Seen by Provider: 10:12 Date Seen: 07/14/23 Chief complaint: Hypertension Stated complaint: high BP Time Seen by Provider: 07/14/23 10:04 Source: patient Mode of arrival: ambulatory Limitations: no limitations History of Present Illness HPI narrative: Patient is a 68 year white male who reports 24 hours of not feeling well, a little bit and nausea yesterday, mild headache, he has a history of headaches. He was out eating couple of times yesterday at [employer] and at another restaurant and then subsequently a couple hours later felt a little sick nauseated, no chest pain, no shortness of breath. The patient has had no COVID symptoms. He has had no cough, no fevers. He called the clinic today as his blood pressure was high in the 160-200 systolic range and they told him to come to the ER. He states ?I did not want to be here?. He reports he has been eating and drinking adequately, no diarrhea no vomiting but has been nauseated. Related Data Home Medications Medication Instructions Recorded Confirmed atorvastatin 20 mg tablet 20 mg PO HS 06/16/22 07/12/23 bupropion HCl 150 mg 24 hr tablet, 300 mg PO DAILY 06/16/22 07/12/23 extended release gabapentin 300 mg capsule 300 mg PO TID 06/16/22 07/12/23 multivitamin 1 tab PO DAILY 06/16/22 07/12/23 rizatriptan 10 mg tablet (Maxalt) 10 mg PO Q2-4H PRN 06/16/22 07/12/23 celecoxib 100 mg capsule 100 mg PO BID PRN 10/01/22 07/12/23 duloxetine 60 mg capsule,delayed 60 mg PO DAILY 12/30/22 07/12/23 release oxycodone-acetaminophen 5 mg-325 1 tab PO QID PRN 01/11/23 07/12/23 mg tablet oxycodone 5 mg capsule 5 mg PO Q8H PRN 07/12/23 07/12/23 Allergies Allergy/AdvReac Type Severity Reaction Status Date / Time No Known Drug Allergies Allergy Verified 07/12/23 09:32 Review of Systems Status of ROS: Reports: 6 or more systems reviewed and unremarkable except as noted in History and below [facility] Medical History Chronic pain ?G89.29 - Other chronic pain (ICD-10) Septic joint of left knee joint ?M00.9 - Pyogenic arthritis, unspecified (ICD-10) Neuralgia, neuritis, and radiculitis, unspecified Morbid obesity ?E66.01 - Morbid (severe) obesity due to excess calories (ICD-10) DJD (degenerative joint disease) ?M19.90 - Unspecified osteoarthritis, unspecified site (ICD-10) Carpal tunnel syndrome ?G56.00 - Carpal tunnel syndrome, unspecified upper limb (ICD-10) Compression fracture HLD (hyperlipidemia) ?E78.5 - Hyperlipidemia, unspecified (ICD-10) Upper respiratory infection ?J06.9 - Acute upper respiratory infection, unspecified (ICD-10) Depression ?F32.A - Depression, unspecified (ICD-10) MRSA (methicillin resistant staph aureus) culture positive ?Z22.322 - Carrier or suspected carrier of Methicillin resistant Staphylococcus aureus (ICD-10) GERD (gastroesophageal reflux disease) ?K21.9 - Gastro-esophageal reflux disease without esophagitis (ICD-10) High cholesterol ?E78.00 - Pure hypercholesterolemia, unspecified (ICD-10) Sleep apnea ?G47.30 - Sleep apnea, unspecified (ICD-10) Surgical History Status post left rotator cuff repair (11/24/22) ?Z98.890 - Other specified postprocedural states (ICD-10) Status post arthroscopy of left shoulder (10/26/22) ?Z98.890 - Other specified postprocedural states (ICD-10) History of surgery on arm ?Z98.890 - Other specified postprocedural states (ICD-10) Previous back surgery ?Z98.890 - Other specified postprocedural states (ICD-10) History of left knee replacement ?Z96.652 - Presence of left artificial knee joint (ICD-10) Status post right knee replacement ?Z96.651 - Presence of right artificial knee joint (ICD-10) History of appendectomy ?Z90.49 - Acquired absence of other specified parts of digestive tract (ICD- 10) History of carpal tunnel surgery of left wrist (10/08/04) ?Z98.890 - Other specified postprocedural states (ICD-10) S/P right knee arthroscopy (06/23/06) ?Z98.890 - Other specified postprocedural states (ICD-10) S/P left knee arthroscopy (01/25/08) ?Z98.890 - Other specified postprocedural states (ICD-10) S/P ORIF (open reduction internal fixation) fracture (08/07/19) ?Z98.890 - Other specified postprocedural states (ICD-10) ?Z87.81 - Personal history of (healed) traumatic fracture (ICD-10) History of elbow surgery (02/29/20) ?Z98.890 - Other specified postprocedural states (ICD-10) Family History Mother Breast cancer Father Alcohol dependence Coronary artery disease Brother Stroke Social History Narrative: Closest family are his son Emery and daughter Sandrita. He would designate both of them is healthcare power of network management specialist. Code status is full. He drinks 3 beers per weekend. Remote history of smoking a half pack of day for 25 years. Now occasionally smokes a pipe or cigar but not every day Highest level of school completed/degree received: don't know Smoking Status: Current some day smoker What tobacco products do you use: pipe Do you use any of these nicotine containing products: Vaping Products Second hand tobacco smoke exposure: No How often do you have a drink containing alcohol: monthly or less Alcohol type: beer, wine and hard liquor How often do you have six or more drinks on one occasion: Never AUDIT-C Alcohol total score: 1 Non-prescribed substance use: denies use Caffeine: Yes (4 cups/day) service: Yes Exam Narrative: Exam Narrative: Objective: In general patient is no apparent distress talkative, noncyanotic Vital signs show blood pressure 140/102, O2 sat 97% on room air, afebrile HEENT is unremarkable no facial asymmetry no scleral icterus Neck is supple Chest is clear Heart rhythm regular heart murmur He denies abdominal pain Extremities are no edema neurologic nonfocal Const: Vital Signs, click to edit/add: Vital Signs - 24 hr 07/14/23 09:48 07/14/23 10:02 07/14/23 10:15 Temperature 97.2 F L Pulse Rate 63 70 Respiratory Rate 24 Blood Pressure Blood Pressure [Ri ght Upper Arm] 140/102 H Pulse Oximetry 97 98 97 Oxygen Delivery Me thod Room Air 07/14/23 10:30 07/14/23 10:32 07/14/23 10:45 Temperature Pulse Rate 72 70 61 Respiratory Rate Blood Pressure 129/82 Blood Pressure [Ri ght Upper Arm] Pulse Oximetry 97 99 96 Oxygen Delivery Me thod 07/14/23 11:00 07/14/23 11:02 07/14/23 11:03 Temperature Pulse Rate 65 62 61 Respiratory Rate Blood Pressure 133/118 H Blood Pressure [Ri ght Upper Arm] Pulse Oximetry 97 97 97 Oxygen Delivery Me thod 07/14/23 11:15 07/14/23 11:31 07/14/23 11:32 Temperature Pulse Rate 68 65 62 Respiratory Rate Blood Pressure 131/91 H Blood Pressure [Ri ght Upper Arm] Pulse Oximetry 97 98 97 Oxygen Delivery Me thod 07/14/23 11:45 07/14/23 12:00 07/14/23 12:02 Temperature Pulse Rate 64 63 64 Respiratory Rate Blood Pressure 142/92 H Blood Pressure [Ri ght Upper Arm] Pulse Oximetry 98 99 98 Oxygen Delivery Me thod Course Vital Signs Vital signs: Initial Vital Signs Temperature 97.2 F L 07/14/23 09:48 Temperature Source Temporal Artery Scan 07/14/23 09:48 Pulse Rhythm Regular 07/14/23 09:48 Respiratory Rate 24 07/14/23 09:48 Blood Pressure 140/102 H 07/14/23 09:48 Blood Pressure Mean 114 H 07/14/23 09:48 Blood Pressure Position Supine 07/14/23 09:48 Pulse Oximetry 97 07/14/23 09:48 Oxygen Delivery Method Room Air 07/14/23 09:48 Vital Signs Temperature 97.2 F L 07/14/23 09:48 Respiratory Rate 24 07/14/23 09:48 Blood Pressure 140/102 H 07/14/23 09:48 Pulse Oximetry 97 07/14/23 09:48 Oxygen Delivery Method Room Air 07/14/23 09:48 Temperature 97.2 F L 07/14/23 09:48 Pulse Rate 64 07/14/23 12:02 Respiratory Rate 24 07/14/23 09:48 Blood Pressure 142/92 H 07/14/23 12:02 Pulse Oximetry 98 07/14/23 12:02 Oxygen Delivery Method Room Air 07/14/23 09:48 Medical Decision Making MDM Narrative Medical decision making narrative: 68-year-old white male with multiple medical issues including elevated BMI, metabolic type syndrome. The patient has had some nausea yesterday and today, no chest pain, no shortness of breath. I think for completeness it may be appropriate to do an IV with rehydration, fluids, laboratory studies, troponin point of care, EKG. Will give him some normal saline. Hopefully this will jenni some of his symptomology. He feels pretty good at this time however and really denies any chest pain or breathing problem. His blood pressure is slightly elevated but that may be because he has had some mild nausea, which could be related to food toxicity or some type of viral syndrome. Will check the above-mentioned studies disposition pending findings. He may need to continue to monitor his blood pressure and discuss this with his doctor in the over the next week or 2. Addendum 11:35 a.m.: The patient's EKG by my read shows no acute ST T wave changes limited R-wave progression in V1 and V2 no other acute ST T-wave changes. The patient has lab studies that show CRP less than 0.5 white count 4040 hemoglobin 14.9 ER profile is largely unremarkable and within normal limits. The patient feels well at this time his last blood pressure is 131/91. Recommend continue twice a day blood pressure monitoring and recheck with his regular doctor next week regarding results. Return to ED sooner problems or concerns. Also of note is his point of care troponin was 0 Lab Data Labs: Lab Results 07/14/23 Range/Units 10:40 WBC 4.04 L (4.50-11.00) K/uL RBC 5.18 (4.30-5.90) m/uL Hgb 14.9 (13.5-17.5) gm/dL Hct 45.2 (37.0-53.0) % MCV 87 (80-100) fL MCH 29 (26-34) pg MCHC 33 (32-36) gm/dL RDW Coeff of [employer]cci 14.5 (11.5-15.5) % Plt Count 150 (140-440) K/uL Neut % (Auto) 59.3 (42.0-72.0) % Lymph % (Auto) 25.2 (20-44) % [place] % (Auto) 13.1 H (0.0-11.0) % Eos % (Auto) 2.0 (0.0-7.0) % Baso % (Auto) 0.2 (0.0-3.0) % Neut # (Auto) 2.40 (1.7-7.0) K/uL Lymph # (Auto) 1.00 (0.90-2.90) K/uL [place] # (Auto) 0.50 (0.00-0.90) K/UL Eos # (Auto) 0.10 (0.00-0.50) K/uL Baso # (Auto) 0.00 (0.00-0.30) K/uL Abs Immat Gran (auto) 0.00 (0.00-0.30) K/uL Imm/Tot Granulo (auto) 0.2 % Sodium 137 (135-149) mmol/L Potassium 4.7 (3.6-5.1) mmol/L Chloride 105 (96-114) mmol/L Carbon Dioxide 24 (20-32) mmol/L Anion Gap 8 (7-15) mEq/L BUN 13 (7-30) mg/dL Creatinine 0.8 (0.5-1.5) mg/dL Estimated Creat Clear 79.76 Estimated GFR 98 ml/min Glucose 99 (60-115) mg/dL Calcium 9.1 (8.4-10.6) mg/dL C-Reactive Protein < 0.5 L (0.5-1.0) mg/dL Discharge Plan Discharge Clinical Impression: Elevated blood pressure reading, Nausea Patient Disposition: Home, Self-Care Condition: Stable Additional Instructions: Rest, fluids, light activity. Recommend recheck blood pressure a couple times a day and discuss with her doctor within the next week. Return to the ED sooner problems or concerns Activity Level: Light activity Discharge Diet: Clear Liquid Diet Detail: Advance diet as tolerated Prescriptions: No Action oxycodone 5 mg capsule 5 mg PO Q8H PRN oxycodone-acetaminophen 5-325 mg tablet 1 tab PO QID PRN atorvastatin 20 mg tablet 20 mg PO HS gabapentin 300 mg capsule 300 mg PO TID bupropion HCl 150 mg tablet extended release 24 hr 300 mg PO DAILY rizatriptan [Maxalt] 10 mg tablet 10 mg PO Q2-4H PRN Rx Instructions: do not exceed 3 doses per 24 hrs multivitamin Tablet 1 tab PO DAILY celecoxib 100 mg capsule 100 mg PO BID PRN duloxetine 60 mg capsule,delayed release(DR/EC) 60 mg PO DAILY Follow Up/Referrals: Sanya Shah MD [Primary Care Provider] - Stand Alone Forms: [facility] Info Instructions
[2023-07-14 10:53] LABS: Basophils Percent Auto 0.2 % (0.0-3.0); Hematocrit 45.2 % (37.0-53.0); Hemoglobin* 14.9 gm/dL (13.5-17.5); Immature Granulocytes Pct Auto 0.2 %; Lymphocytes Percent Auto 25.2 % (20-44); Mean Corpuscular HGB Conc 33 gm/dL (32-36); Mean Corpuscular Hemoglobin 29 pg (26-34); Mean Corpuscular Volume 87 fL (80-100); Monocytes Percent Auto 13.1 % (0.0-11.0); Neutrophils Percent Auto 59.3 % (42.0-72.0); Platelet Count* 150 K/uL (140-440); RDW Coefficient of Variation % 14.5 % (11.5-15.5); Red Blood Count 5.18 m/uL (4.30-5.90); White Blood Count* 4.04 K/uL (4.50-11.00)
[2023-07-14 11:00] LABS: Slide Review Reflex No
[2023-07-14 11:11] LABS: Chloride* 105 mmol/L (96-114); Potassium* 4.7 mmol/L (3.6-5.1); Sodium* 137 mmol/L (135-149)
[2023-07-14 11:14] LABS: Creatinine* 0.8 mg/dL (0.5-1.5); Est. Creatinine Clearance* 79.76; Estimated Glomerular Filt Rate 98 ml/min
[2023-07-14 11:15] LABS: Anion Gap 8 mEq/L (7-15); Blood Urea Nitrogen* 13 mg/dL (7-30); Calcium* 9.1 mg/dL (8.4-10.6); Carbon Dioxide* 24 mmol/L (20-32); Glucose* 99 mg/dL (60-115)
[2023-07-14] MEDS: 0.9 % SODIUM CHLORIDE 500 ML 500 ML IV (11:17)
[2023-07-14 11:18] LABS: C Reactive Protein* < 0.5 mg/dL (0.5-1.0)
== END 2023-07-14 12:15 | disposition home or self-care (01) ==
LOC: ED 10:20
PROVIDERS: Emergency Provider Family Medicine; PCP Family Medicine
DX: R03.0 Elevated blood-pressure reading, without diagnosis of hypertension (principal); R11.0 Nausea
CPT/HCPCS: 36415; 80048; 84484; 85025; 86140; 93005; 99283; 99284; J7120

== ENCOUNTER 2024-03-19 11:14 | Emergency (ER) | payer MEDICARE, SELFPAY ==
[2024-03-19 11:27] VITALS: BP 117/84; PULSE 80; RESP 20; TEMP 36.6; O2SAT 96; BMI 48.8
--- NOTE | 2024-03-19 12:24 | ED.GENADULT ---
HPI - General Adult General Chief complaint: Hypertension Stated complaint: high BP, brain fog Time Seen by Provider: 03/19/24 12:11 History of Present Illness HPI narrative: This 69-year-old male comes in with concern about his blood pressure being elevated this morning. He has a machine at home and saw value of 134/104 and about half an hour later it was at 143/127. He started blood pressure medicine about 5 months ago and takes lisinopril at night and amlodipine in the morning. He states that he got to bed really late last night after watching a movie. He woke this morning and did have what he calls brain fog and perhaps had a very mild headache. He does not report any chest pain or neurologic deficits. He did take his blood pressure medicine this morning and upon arrival here has a systolic blood pressure of 117. Related Data Home Medications ?Medication ?Instructions ?Recorded ?Confirmed atorvastatin 20 mg tablet 20 mg PO HS 06/16/22 03/19/24 bupropion HCl 150 mg 24 hr tablet, 300 mg PO DAILY 06/16/22 03/19/24 extended release gabapentin 300 mg capsule 300 mg PO TID 06/16/22 03/19/24 multivitamin 1 tab PO DAILY 06/16/22 03/19/24 rizatriptan 10 mg tablet (Maxalt) 10 mg PO Q2-4H PRN 06/16/22 03/19/24 celecoxib 100 mg capsule 100 mg PO BID PRN 10/01/22 03/19/24 duloxetine 60 mg capsule,delayed 60 mg PO DAILY 12/30/22 03/19/24 release oxycodone-acetaminophen 5 mg-325 1 tab PO QID PRN 01/11/23 03/19/24 mg tablet oxycodone 5 mg capsule 5 mg PO Q8H PRN 07/12/23 03/19/24 amlodipine 5 mg tablet 5 mg PO DAILY 03/19/24 03/19/24 lisinopril 20 mg tablet 20 mg PO DAILY 03/19/24 03/19/24 ondansetron HCl 4 mg tablet 4 mg PO PRN nausea 03/19/24 Allergies Allergy/AdvReac Type Severity Reaction Status Date / Time No Known Drug Allergies Allergy Verified 07/12/23 09:32 Review of Systems Status of ROS: Reports: 10 or more systems reviewed and unremarkable except as noted in History and below Narrative: Constitutional: No fevers, no weight gain or loss. Eyes: No discharge. No vision changes. HENT: No congestion, no sore throat, no ear pain. Cardiovascular: No chest pain, no palpitations. Respiratory: No shortness of breath, no wheezes, no cough. Gastrointestinal: No abdominal pain, no vomiting, no diarrhea. Genitourinary: No dysuria, no hematuria. Musculoskeletal: Normal range of motion. Skin: No rashes, no pruritis. Neurological: No dizziness, weakness, sensory change, speech change. Endo/Heme/Allergies: No bruising or bleeding. No polydipsia. Pysch: no suicidality, no anxiety, no insomnia. All other systems reviewed and are negative. [facility] Medical History Chronic pain ?G89.29 - Other chronic pain (ICD-10) Septic joint of left knee joint ?M00.9 - Pyogenic arthritis, unspecified (ICD-10) Neuralgia, neuritis, and radiculitis, unspecified Morbid obesity ?E66.01 - Morbid (severe) obesity due to excess calories (ICD-10) DJD (degenerative joint disease) ?M19.90 - Unspecified osteoarthritis, unspecified site (ICD-10) Carpal tunnel syndrome ?G56.00 - Carpal tunnel syndrome, unspecified upper limb (ICD-10) Compression fracture HLD (hyperlipidemia) ?E78.5 - Hyperlipidemia, unspecified (ICD-10) Upper respiratory infection ?J06.9 - Acute upper respiratory infection, unspecified (ICD-10) Depression ?F32.A - Depression, unspecified (ICD-10) MRSA (methicillin resistant staph aureus) culture positive ?Z22.322 - Carrier or suspected carrier of Methicillin resistant Staphylococcus aureus (ICD-10) GERD (gastroesophageal reflux disease) ?K21.9 - Gastro-esophageal reflux disease without esophagitis (ICD-10) High cholesterol ?E78.00 - Pure hypercholesterolemia, unspecified (ICD-10) Sleep apnea ?G47.30 - Sleep apnea, unspecified (ICD-10) Surgical History Status post left rotator cuff repair (11/24/22) ?Z98.890 - Other specified postprocedural states (ICD-10) Status post arthroscopy of left shoulder (10/26/22) ?Z98.890 - Other specified postprocedural states (ICD-10) History of surgery on arm ?Z98.890 - Other specified postprocedural states (ICD-10) Previous back surgery ?Z98.890 - Other specified postprocedural states (ICD-10) History of left knee replacement ?Z96.652 - Presence of left artificial knee joint (ICD-10) Status post right knee replacement ?Z96.651 - Presence of right artificial knee joint (ICD-10) History of appendectomy ?Z90.49 - Acquired absence of other specified parts of digestive tract (ICD-10) History of carpal tunnel surgery of left wrist (10/08/04) ?Z98.890 - Other specified postprocedural states (ICD-10) S/P right knee arthroscopy (06/23/06) ?Z98.890 - Other specified postprocedural states (ICD-10) S/P left knee arthroscopy (01/25/08) ?Z98.890 - Other specified postprocedural states (ICD-10) S/P ORIF (open reduction internal fixation) fracture (08/07/19) ?Z98.890 - Other specified postprocedural states (ICD-10) ?Z87.81 - Personal history of (healed) traumatic fracture (ICD-10) History of elbow surgery (02/29/20) ?Z98.890 - Other specified postprocedural states (ICD-10) Family History Mother Breast cancer Father Alcohol dependence Coronary artery disease Brother Stroke Social History Narrative: Closest family are his son Emery and daughter Sandrita. He would designate both of them is healthcare power of campground cleaning attendant. Code status is full. He drinks 3 beers per weekend. Remote history of smoking a half pack of day for 25 years. Now occasionally smokes a pipe or cigar but not every day Highest level of school completed/degree received: don't know Smoking Status: Current some day smoker What tobacco products do you use: pipe Do you use any of these nicotine containing products: Vaping Products Second hand tobacco smoke exposure: No How often do you have a drink containing alcohol: monthly or less Alcohol type: beer, wine and hard liquor How often do you have six or more drinks on one occasion: Never AUDIT-C Alcohol total score: 1 Non-prescribed substance use: denies use Caffeine: Yes (4 cups/day) service: Yes Exam Narrative: Exam Narrative: Constitutional: Well-developed, well-nourished, no acute distress. HEENT: Normocephalic, atraumatic. Neck: Normal range of motion. Nontender. Supple. Heart: Regular. No murmurs. Normal rate. Intact distal pulses. Lungs: Clear to auscultation. No chest discomfort. No wheezes, rhonchi, or rales. Abdomen: Normal bowel sounds. Nontender. No rebound tenderness. Genitalia: Deferred. Back: No midline tenderness. Normal range of motion. Extremities: Normal range of motion. No injury. Skin: Intact. No rash. Warm. No erythema or pallor. Neurologic: No altered sensation. No weakness. Alert and oriented. No facial asymmetry. Tongue is midline. Sovbye-fc-[id number] is normal. No pronator drift. Aviation Project Manager strength is equal bilaterally. Able to raise each leg from the bed. Psychiatric: No suicidality. No anxiety or depression. No insomnia. Nursing notes and vitals signs are reviewed. Const: Vital Signs, click to edit/add: Vital Signs - 24 hr 03/19/24 11:27 Temperature 97.9 F Pulse Rate [Pulse Oximeter] 80 Respiratory Rate 20 Blood Pressure [Ri ght Upper Arm] 117/84 Pulse Oximetry 96 Oxygen Delivery Me thod Room Air Course Vital Signs Vital signs: Initial Vital Signs Temperature 97.9 F 03/19/24 11:27 Temperature Source Temporal Artery Scan 03/19/24 11:27 Pulse Rate 80 03/19/24 11:27 Respiratory Rate 20 03/19/24 11:27 Blood Pressure 117/84 03/19/24 11:27 Blood Pressure Mean 95 03/19/24 11:27 Blood Pressure Position Supine 03/19/24 11:27 Pulse Oximetry 96 03/19/24 11:27 Oxygen Delivery Method Room Air 03/19/24 11:27 Vital Signs Temperature 97.9 F 03/19/24 11:27 Pulse Rate 80 03/19/24 11:27 Respiratory Rate 20 03/19/24 11:27 Blood Pressure 117/84 03/19/24 11:27 Pulse Oximetry 96 03/19/24 11:27 Oxygen Delivery Method Room Air 03/19/24 11:27 Temperature 97.9 F 03/19/24 11:27 Pulse Rate 80 03/19/24 11:27 Respiratory Rate 20 03/19/24 11:27 Blood Pressure 117/84 03/19/24 11:27 Pulse Oximetry 96 03/19/24 11:27 Oxygen Delivery Method Room Air 03/19/24 11:27 Medical Decision Making MDM Narrative Medical decision making narrative: This patient comes in with concern that his blood pressure is elevated. He had taken his blood pressure before taking his medicine this morning. After arrival here and his medicine has kicked in he has normal blood pressure. I did discuss with him matters related to blood pressure and criteria for diagnosing and changing treatment for blood pressure. This was reassuring to the patient. He is okay to be discharged home to continue current plans. He will continue to record his blood pressures and follow up with his primary physician as needed. Discharge Plan Discharge Clinical Impression: Feared condition not demonstrated Prescriptions: No Action oxycodone 5 mg capsule 5 mg PO Q8H PRN oxycodone-acetaminophen 5-325 mg tablet 1 tab PO QID PRN atorvastatin 20 mg tablet 20 mg PO HS gabapentin 300 mg capsule 300 mg PO TID bupropion HCl 150 mg tablet extended release 24 hr 300 mg PO DAILY rizatriptan [Maxalt] 10 mg tablet 10 mg PO Q2-4H PRN Rx Instructions: do not exceed 3 doses per 24 hrs multivitamin Tablet 1 tab PO DAILY celecoxib 100 mg capsule 100 mg PO BID PRN duloxetine 60 mg capsule,delayed release(DR/EC) 60 mg PO DAILY lisinopril 20 mg tablet 20 mg PO DAILY ondansetron HCl 4 mg tablet 4 mg PO PRN (Reason: nausea) amlodipine 5 mg tablet 5 mg PO DAILY Follow Up/Referrals: Sanya Shah MD [Primary Care Provider] -
--- OUTSIDE RECORDS SUMMARY | 2024-03-19 12:29 | XMS_ITS | Clinical Summary ---
Author Organization [facility] Address [place], [place] [address] Care Team Providers Care Statement Services Representative Name Role Phone Sanya Shah MD Primary Care Provider [phone] Allergies No known active allergies Medications Medication Sig Dispensed Refills Start Date End Date Status multivitamin (MVI) tablet Take 1 tablet by mouth once daily. 0 06/16/2010 Active rizatriptan (MAXALT) 10 mg tabletIndications:Migr raul syndrome Take 1 tablet by mouth every 2 hours if needed for Migraine. Max dose: 30mg per 24 hrs. 15 tablet 3 07/04/2018 Active buPROPion (WELLBUTRIN XL) 150 mg Extended-Release tablet Take 300 mg by mouth once daily. 02/06/2020 Active gabapentin (NEURONTIN) 300 mg capsule Take 300 mg by mouth 3 times daily. Active amoxicillin (AMOXIL) 500 mg capsuleIndications:S/P revision of total knee, left 2000 mg 1 hour before dental work 8 capsule. 2 08/21/2021 Active oxyCODONE (ROXICODONE) 5 mg immediate release tabletIndications:Acut e pain of left shoulder Take 1 Tablet (5 mg) by mouth every 6 hours if needed for Pain. 15 Tablet 07/29/2022 Active DULoxetine (CYMBALTA) 60 mg Delayed-release capsule Take 60 mg by mouth once daily. 01/18/2023 Active lisinopriL (PRINIVIL; ZESTRIL) 20 mg tabletIndications:Esse ntial hypertension Take 1 Tablet (20 mg) by mouth once daily. 90 Tablet 3 08/25/2023 Active atorvastatin (LIPITOR) 20 mg tabletIndications:Mixe d hyperlipidemia Take 1 Tablet (20 mg) by mouth once daily. 90 Tablet 3 08/25/2023 Active CPAPIndications:LUDWIN (obstructive sleep apnea) CPAP machine for home use at pressure at 10.2 cmw with a nasal mask x1/3month with nasal cushion x2/mo 1 Each 11 09/02/2023 Active amLODIPine (NORVASC) 5 mg tabletIndications:Esse ntial hypertension Take 1 Tablet (5 mg) by mouth once daily. 90 Tablet 3 02/03/2024 Active Active Problems Problem Noted Date Diagnosed Date Essential hypertension 02/23/2024 Severe episode of recurrent major depressive disorder, without psychotic features 11/24/2022 Hyperplastic colonic polyp 08/05/2022 Overview: Colonoscopy 07/2022 hyperplastic polyp, some retained stool lavaged, repeat in 5 years, extra prep, propofol Dilation of thoracic aorta 06/17/2022 Overview: Noted on a CT at [facility] on 06/16/2022. It was 4.2 cm dilated. Repeat in 1 year. 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 Katz at [facility] recommends prophylaxis for life for dental work due to 3 revisions as of 07/24/2019 (long after recommendation of no antibiotic prophylaxis). LUDWIN 07/27/2004 AHI43 04/13/2019 Chronic pain 06/25/2017 Vitamin D insufficiency 05/06/2016 Anticoagulation monitoring, special range 2014 S/P TKR (total knee replacement) 06/11/2015 Impaired fasting glucose 06/08/2014 Mixed hyperlipidemia 06/08/2014 Anemia, unspecified 11/19/2012 GERD (gastroesophageal reflux disease) 0 Overview: Intermittent pepcid AC Tobacco abuse - H/O 04/14/2010 Overview: x25 years; quit 1/98 Migraine equivalent 06/06/2009 Adjustment disorder with depressed mood 06/06/20 09 Peripheral sensory neuropathy Overview: intermittant, migrating Morbid obesity Resolved Problems Problem Noted Date Diagnosed Date Resolved Date Shock 06/05/2020 06/03/2022 MRSA (methicillin resistant staph aureus) culture positive- left septic knee 03/03/201511/05 Knee cap dislocation 09/16/2014 017 Cellulitis and abscess of leg, except foot 11/19/2012 11/05/2016 Chills with fever 11/19/2012 11/05/2016 Hypokalemia 11/19/2012 11/05/2016 Screen for colon cancer 02/13/201105/05 Overview: Colonoscopy 02/2011 normal repeat in 10 years Need for prophylactic vaccin ation against Hemophilus influenza type B (Hib) 07/04/20092016 Plantar fascial fibromatosis 10/20/2007 02/11/2011 Unspecified sleep apnea 04/03 Overview: cpap Encounters Date Type Department Care Team Description 03/19/2024 Nurse Triage [facility] [address] [facility] [address] Sanya Shah MD High Blood Pressure 03/07/2024 7:45 AM CDT Orders Only [facility] [address] [facility] [address] [facility], [place] [facility] 03/07/2024 Travel 03/05/2024 Travel 02/23/2024 3:40 PM CDT Office Visit [facility] [address] [facility] [address] Sanya Shah MD Medication Management (Follow up for blood pressure) 02/23/2024 Travel 02/03/2024 Medical Messaging [facility] [address] [place] [address] Sanya Shah MD Right Ankle from Last 3 Months Immunizations Name Administration Dates Next Due COVID-19 Vaccine Spikevax (M oderna 50mcg/0.5mL) 12YO+ [id number] Formula PF 07/28/2023 COVID-19 vaccine (Moderna 100mcg/0.5mL) PF, MDV 01/28/2021,12/31/2020 COVID-19 vaccine (Pfizer-Bio NTech 30mcg/0.3mL) 12YO+ BIVALENT PF, MDV 06/17/2022 Hepatitis A (Adult) 02/05/2011,11/11/2005 Influenza, IIV3 (Age >=3 years) 08/15/20 13,08/23/2012,09/17/2010,2008 Influenza, IIV4 08/12/2021, 0,07/31/2019,2017,06/20/2015,08/07/2014 Influenza, IIV4 (=>6mos) MDV 06/25/2017 Influenza, Inactivated AIIV4 (Age 65+ Years) Preserv Free 07/28/2023,06/17/2022 Pneumococcal Conj 20-valent (Prevnar 20) 06/17/2022 Td (Age >=7 Years) 08/21/2005 Tdap 05/23/2020,02/05/2011 Zoster (Shingrix-RZV, recombinant) 11/18/2018, Family History Medical History Relation Name Comments Other Brother 1 Amrik TBI from MVA Stroke Brother 2 Mark Other Brother 3 Jose Chronic back fo llowing a fall Alcohol/Drug Father Heart Disease Father after 55 Cancer Mother Cervical Cancer-breast Mother Diabetes Neg. 1 Cancer-colon Neg. 2 Cancer-prostate Neg. 3 Anesthesia Problem Neg. 4 Relation Name Status Comments Brother 1 Amrik Alive Brother 2 Mark Alive Brother 3 Jose Alive Father (Age 83) Alcoholism Mother (Age 82) Neg. 1 Neg. 2 Neg. 3 Neg. 4 Social History Tobacco Use Types Packs/Day Years Used Date Smoking Tobacco: Former Cigarettes 0.5 25 0 10/04/1972 - 10/04/1997 Pipe Cigars Passive Smoke Exposure: Past Smokeless Tobacco: Never Tobacco Cessation:Counseling Given: Not Answered Comments:smoked 4 cigs a day for 25 yrs. quit, but continues to smoke a pipe every now and then Alcohol Use Standard Drinks/Week Comments Yes 1 (1 standard drink = 0.6 oz pur e alcohol) 1 to 2 on weekends PHQ-2 Answer Date Recorded PHQ-2 TOTAL SCORE 2 08/25/2023 Social Connections Answer Date Recorded Frequency of Communication with Friends and Fami ly 0 07/28/2023 Financial Resource Strain Answer Date R ecorded Difficulty of Paying Living Expenses 3 07/28/2023 Difficulty of Paying Living Expenses Not on file 07/28/2023 Food Insecurity Answer Date Recorded Worried About Running Out of Food in the Last Ye ar 1 07/28/2023 Transportation Needs Answer Date Record ed Lack of Transportation (Medical) 1 07/28/2023 Housing Stability Answer Date Recorded Unable to Pay for Housing in the Last Year 1 07/28/2023 Sex and Gender Information Value Date Recorded Sex Assigned at Not on file Gender Identity Not on file Sexual Orientation Not on file Obstetrics History Last Filed Vital Signs Vital Sign Reading Time Taken Comments Blood Pressure 121/83 02/23/2024 3:20 PM CDT Pulse 87 02/23/2024 3:20 PM CDT Temperature 37.1 ??C (98.8 ??F) 05/28/2023 10:51 AM C DT Respiratory Rate 20 05/28/2023 10:51 AM CDT Oxygen Saturation 97% 02/23/2024 3:20 PM CDT Inhaled Oxygen Concentration - - Weight 170.1 kg (375 lb) 02/23/2024 3:20 PM CDT Height 182.9 cm (6' 0.01) 09/02/2023 8:30 AM CS T Body Mass Index 50.85 09/02/2023 8:30 AM [employer] Plan of Treatment Health Maintenance Due Date Last Done Comments Medicare Wellness for age 65+ 06/18/2023 06/17/2022 COVID-19 vaccine series ( season) 2023 07/28/2023, 06/17/2022, 08/11/2021, Additional history exists Influenza for age 65+ 06/04/2024 07/28/2023 , 06/17/2022, 08/12/2021, Additional history exists Depression screening for age 12+ 08/25/2024 08/25/2023, 06/17/2022, 06/17/2022, Additional history exists BMI (ht and wt on same day) for age 18+ 09/02/2024 09/02/2023, 05/28/2023, 11/23/2022, Additional history exists Colonoscopy through age 75 08/03/202708/03, 08/03/2022, 02/13/2011, Additional history exists Lipids for age 45-75 03/07/2029 03/07/2024, 09/24/2023, 06/03/2022, Additional history exists Tetanus booster 05/23/2030 05/23/2020, 05/0 02/2011, 08/21/2005 Hepatitis C screening for ag e 18-79 Completed 09/19/2018, 05/22/2013 Zoster (shingles) series for age 50+ Completed 11/18/2018, 07/04/2018 Tdap Completed 05/23/2020, 02/05/2011 Pneumococcal series for age 65+ Completed AAA screening age 65-74 Completed 09/17/2023, 06/30 Medical Devices Implanted Type Area Rack Puncher Device Identifier Shelf Expiration Date Model / Serial / Lot Cmnt Bone [employer] - [id number] Implanted:Qty: 1 on 03/07/2010 at [facility] Right: Knee BIOMET [id number]# / / [id number] Cmnt Bone [employer] - [id number] Implanted:Qty: 1 on 03/07/2010 at [facility] Right: Knee BIOMET [id number]# / / [id number] Fem Cr Ilok Rt 72.5 Vanguard - [id number] Implanted:Qty: 1 on 03/07/2010 at [facility] Right: Knee BIOMET [id number]# / / [id number] Plate Tib 83mm Maxim [id number] Biomet - [id number] Implanted:Qty: 1 on 03/07/2010 at [facility] Right: Knee BIOMET [id number]# / / [id number] Head Fem /14 28mm +8 Taper Zr - [id number] Implanted:Qty: 1 on 03/07/2010 at [facility] Right: Knee [employer] [id number]# / / [id number] Tibial Bearing Implanted:Qty: 1 on 03/07/2010 at [facility] Right: Knee [id number] / / [id number] Description:TIBIAL BEARING Compnt Fem Cr Intlk [id number] Vanguard - [id number] Implanted:Qty: 1 on 04/14/2010 at [facility] Left: Knee BIOMET [id number]# / / [id number] Tibial Bearing Implanted:Qty: 1 on 04/14/2010 at [facility] Left: Knee [id number] / / [id number] Description:TIBIAL BEARING Cmnt Bone [employer] - [id number] Implanted:Qty: 2 on 04/14/2010 at [facility] Left: Knee BIOMET 006217# / / [id number] Plate Tib 83mm Maxim [id number] Biomet - [id number] Implanted:Qty: 1 on 04/14/2010 at [facility] Left: Knee BIOMET 666268# / / [id number] Patella Series A Std 40 3peg - [id number] Implanted:Qty: 1 on 04/14/2010 at [facility] Left: Knee BIOMET [id number]# / / [id number] Insert Tib Sz 7-8 15mm Constrained Art Josie Ii - [id number] Implanted:Qty: 1 on 09/08/2012 at [facility] Left: Knee [employer] [id number]# / / [id number] Graft Bont Pro-Dense Injectable - [id number] Implanted:Qty: 1 on 09/08/2012 at [facility] Left: Knee [employer] Inc 87SR-0420# / / [id number] Cmnt Bone Simplex P W/Tobramycin - [id number] Implanted:Qty: 3 on 09/08/2012 at [facility] Left: Knee [employer] 6197-9-001# / / [id number] Cmnt Bone Simplex P W/Tobramycin - [id number] Implanted:Qty: 1 on 09/08/2012 at [facility] Left: Knee [employer] 6197-9-001# / / [id number] Stem Lgn Cmnt 39x073vl Stra - [id number] Implanted:Qty: 1 on 09/08/2012 at [facility] Left: Knee [employer] [id number]# / / [id number] Compnt Fem Sz 8 Lt - [id number] Implanted:Qty: 1 on 09/08/2012 at [facility] Left: Knee [employer] [id number]# / / [id number] Baseplate Tib Sz 7 Lt - [id number] Implanted:Qty: 1 on 09/08/2012 at [facility] Left: Knee [employer] [id number]# / / [id number] Stem Legion Cmnt 76w555vg Stra - [id number] Implanted:Qty: 1 on 09/08/2012 at [facility] Left: Knee [employer] [id number]# / / [id number] Tibial Wedge Implanted:Qty: 1 on 09/08/2012 at [facility] Left: Knee [id number] / / [id number] Description:TIBIAL WEDGE Tibial Wedge Implanted:Qty: 1 on 09/08/2012 at [facility] Left: Knee [id number] / / [id number] Description:TIBIAL WEDGE Sut 5 38in Force Fiber Ndl - [id number] Implanted:Qty: 1 on 09/13/2014 by Mark Katz MD at [facility] Left: Knee [employer] 01/12/2019 [id number] # / / Allograft 4x7cm Regen Graft Jacket Thick - [id number] Implanted:Qty: 1 on 09/13/2014 at [facility] Left: Knee [employer]ry[employer] Inc 86UM-4X07# / / [id number] Cmnt Bone 40g Simplex P Non Atb Mv - [id number] Implanted:Qty: 2 on 03/04/2015 at [facility] Left: Knee [employer] 6191-1-010# / / [id number] Cmnt Bone 40g Simplex P Non Atb Mv - [id number] Implanted:Qty: 2 on 03/04/2015 at [facility] Left: Knee [employer] 6191-1-010# / / [id number] Explanted Type Area Rack Puncher Device Identifier Shelf Expiration Date Model / Serial / Lot Custom Alignment Guide Explanted:Qty: 1 on 04/14/2010 at [facility] Left: Knee [id number] / / [id number] Description:CUSTOM ALIGNMENT GUIDE Procedures Procedure Name Priority Date/Time Associated Diagnosis Comments CBC WITH AUTO DIFFERENTIAL Routine 03/07/2024 7:52 AM CDT Morbid obesity (HC) Body mass index 45.0-49.9, adult (HC) Essential hypertension HEMOGLOBIN A1C SCREENING Routine 03/07/2024 7:52 AM CDT Other specified disorders of carbohydrate metabolism (HC) CBC WITH AUTO DIFFERENTIAL Routine 03/07/2024 7:52 AM CDT Morbid obesity (HC) Body mass index 45.0-49.9, adult (HC) Essential hypertension TSH WITH REFLEX Routine 03/07/2024 7:52 AM CDT Morbid obesity (HC) Body mass index 45.0-49.9, adult (HC) Essential hypertension LIPID PANEL W REFLEX MEASURED LDL Routine 03/07/2024 7:52 AM CDT Morbid obesity (HC) Body mass index 45.0-49.9, adult (HC) Essential hypertension COMP METABOLIC PANEL Routine 03/07/2024 7:52 AM CDT Morbid obesity (HC) Body mass index 45.0-49.9, adult (HC) Essential hypertension US AORTA Routine 09/17/2023 10:39 AM [employer] Aortic aneurysm, unspecified portion of aorta, unspecified whether ruptured (HC) SCAN-COLONOSCOPY 08/03/2022 12:0 0 AM CDT ANTI HCV Routine 09/19/2018 7:50 AM [employer] Need for hepatitis C screening test from Last 3 Months or Most Recently Relevant to Health Maintenance Results * CBC WITH AUTO DIFFERENTIAL (03/07/2024 7:52 AM CDT) [facility] WHITE BLOOD COUNT 5.1 4.5 - 11.0 thou/cu mm 03/07/2024 7:56 AM CDT [facility] RED BLOOD COUNT 4.64 4.30 - 5.90 mil/cu mm 03/07/2024 7:56 AM CDT [facility] HEMOGLOBIN 14.4 13.5 - 17.5 g/dL 03/07/2024 7:56 AM CDT [facility] HEMATOCRIT 41.3 37.0 - 53.0 % 03/07/2024 7:56 AM CDT [facility] MCV 89 80 - 100 fL 03/07/2024 7:56 AM CDT [facility] MCH 31.0 26.0 - 34.0 pg 03/07/2024 7:56 AM CDT [facility] MCHC 34.9 32.0 - 36.0 g/dL 03/07/2024 7:56 AM CDT [facility] RDW 13.7 11.5 - 15.5 % 03/07/2024 7:56 AM CDT [facility] PLATELET COUNT 168 140 - 440 thou/cu mm 03/07/2024 7:56 AM CDT [facility] MPV 9.0 6.5 - 11.0 fL 03/07/2024 7:56 AM CDT [facility] % NEUT 47.3 % 03/07/2024 7:56 AM CDT [facility] % LYMPH 36.0 % 03/07/2024 7:56 AM CDT [facility] % MONO 12.5 % 03/07/2024 7:56 AM CDT [facility] % EOS 3.6 % 03/07/2024 7:56 AM CDT [facility] % BASO 0.6 % 03/07/2024 7:56 AM CDT [facility] ABSOLUTE NEUTROPHILS 2.4 1.7 - 7.0 thou/cu mm 03/07/2024 7:56 AM CDT [facility] ABSOLUTE LYMPHOCYTES 1.8 0.9 - 2.9 thou/cu mm 03/07/2024 7:56 AM CDT [facility] ABSOLUTE MONOCYTES 0.6 <0.9 thou/cu mm 03/07/2024 7:56 AM CDT [facility] ABSOLUTE EOSINOPHILS 0.2 <0.5 thou/cu mm 03/07/2024 7:56 AM CDT [facility] ABSOLUTE BASOPHILS 0.0 <0.3 thou/cu mm 03/07/2024 7:56 AM CDT [facility] Blood BLOOD SPECIMEN / Unknown Venipuncture / Unknown 03/07/2024 7:52 AM CDT 03/07/2024 7:53 AM CDT Narrative [facility] - 03/07/2024 7:56 AM CDT ORDERED BY ARY ZHANG PLEASE FAX TO [phone] Sanya Shah MD HEMATOLOGY Performing Organization Address City/[facility]/ZIP Co de Phone Number [facility] [address] [place] [address], * HEMOGLOBIN A1C SCREENING (03/07/2024 7:52 AM CDT) HEMOGLOBIN A1C SCREENING 5.0 <=6.4 % 03/07/2024 4:37 PM CDT [facility] Blood BLOOD SPECIMEN / Unknown Venipuncture / Unknown 03/07/2024 7:52 AM CDT 03/07/2024 7:53 AM CDT Narrative [facility] - 03/07/2024 4:37 PM CDT ? (<5.7%) ?Normal ? (5.7% to 6.4%) ? Indicates prediabetes ? (>=6.5%) ? Confirms diabetes Falsely low levels may be seen with: Recent Transfusion, Recent Significant Blood Loss, Hemolytic Diseases, or Falsely elevated levels may be seen with: Untreated Anemias, Splenectomy Sanya Shah MD CHEMISTRY Performing Organization Address City/[facility]/ZIP Co de Phone Number [facility] [address] [place] [address], [place] * TSH WITH REFLEX (03/07/2024 7:52 AM CDT) TSH 2.99 0.27 - 4.20 uIU/mL 03/07/2024 3:20 PM CDT [facility] Blood BLOOD SPECIMEN / Unknown Venipuncture / Unknown 03/07/2024 7:52 AM CDT 03/07/2024 7:53 AM CDT Narrative [facility] - 03/07/2024 3:20 PM CDT In Adults, TSH values between 5.00 and 10.00 uIU/ml do not necessarily indicate the presence of Hypothyroidism. Correlation with clinical findings such as presence of goiter and/or Thyroperoxidase (TPO) Antibody may be helpful. For more information please refer to PANDA 2004; 291: 228-238. Sanya Shah MD CHEMISTRY [facility] [address] [place] [address], * LIPID PANEL W REFLEX MEASURED LDL (03/07/2024 7:52 AM CDT) CHOLESTEROL,TOTAL 149 100 - 199 mg/dL 03/07/2024 3:20 PM CDT [facility] Comment: Cholesterol, Total Reference Ranges Desirable <200 mg/dL Borderline 200-239 mg/dL High >=240 mg/dL TRIGLYCERIDES 77 <150 mg/dL 03/07/2024 3:20 PM CDT [facility] HDL CHOLESTEROL 54 >40 mg/dL 3:20 PM CDT [facility] NON-HDL CHOLESTEROL 95 <145 mg/dl 03/07/2024 3:20 PM CDT [facility] CHOL/HDL RATIO 2.76 <4.50 03/07/2024 3:20 PM CDT [facility] LDL CHOLESTEROL 80 <=130 mg/dL 03/07/2024 3:20 PM CDT [facility] VLDL CHOLESTEROL 15 <=30 mg/dL 03/07/2024 3:20 PM CDT [facility] PROVIDER ORDERED STATUS RANDOM 03/07/2024 3:20 PM CDT [facility] Blood BLOOD SPECIMEN / Unknown Venipuncture / Unknown 03/07/2024 7:52 AM CDT 03/07/2024 7:53 AM CDT Sanya Shah MD CHEMISTRY [facility] [address] [place] [address], * (ABNORMAL) COMP METABOLIC PANEL (03/07/2024 7:52 AM CDT) SODIUM 140 136 - 145 mmol/L 03/07/2024 3:20 PM CDT [facility] POTASSIUM 4.7 3.5 - 5.1 mmol/L 03/07/2024 3:20 PM CDT [facility] CHLORIDE 104 98 - 107 mmol/L 03/07/2024 3:20 PM CDT [facility] CO2,TOTAL 23 22 - 29 mmol/L 03/07/2024 3:20 PM CDT [facility] ANION GAP 13 5 - 18 03/07/2024 3:20 PM CDT [facility] GLUCOSE 109(H) 70 - 99 mg/dL 03/07/2024 3:20 PM CDT [facility] CALCIUM 9.3 8.8 - 10.2 mg/dL 03/07/2024 3:20 PM CDT [facility] BUN 17 8 - 23 mg/dL 03/07/2024 3:20 PM T [facility] CREATININE 1.02 0.70 - 1.20 mg/dL 03/07/2024 3:20 PM T [facility] BUN/CREAT RATIO 17 10 - 20 3:20 PM CDT [facility] eGFR 81(L) >90 mL/min/1.7 3m2 03/07/2024 3:20 PM T [facility] Comment:As of 2021, eG FR is calculated by the CKD-EPI creatinine equation without race adjustment. ??eGFR can be influenced by muscle mass, exercise, and diet. ??The reported eGFR is an estimation only and is only applicable if the renal function is stable. ALBUMIN 4.5 4.0 - 4.9 g/dL 03/07/2024 3:20 PM CDT [facility] PROTEIN,TOTAL 6.7 6.0 - 8.0 g/dL 03/07/2024 3:20 PM CDT [facility] BILIRUBIN,TOTAL 0.6 0.0 - 1.2 mg/dL 03/07/2024 3:20 PM CDT [facility] ALK PHOSPHATASE 82 40 - 129 IU/L 03/07/2024 3:20 PM CDT [facility] ALT (SGPT) 27 10 - 50 IU/L 03/07/2024 3:20 PM CDT [facility] AST (SGOT) 27 10 - 50 IU/L 03/07/2024 3:20 PM CDT [facility] Blood BLOOD SPECIMEN / Unknown Venipuncture / Unknown 03/07/2024 7:52 AM CDT 03/07/2024 7:53 AM CDT Sanya Shah MD CHEMISTRY [facility] [address] [place] [id number], * US AORTA (09/17/2023 10:39 AM [employer]) Anatomical Region Laterality Modality Abdomen, AORTA Ultrasound 09/17/2023 1:17 PM [employer] Narrative 09/17/2023 1:17 PM [employer] For Patients: ??As a result of the Century Cures Act, medical imaging exams and procedure reports are released immediately into your electronic medical record. ??You may view this report before your referring provider. ??If you have questions, please contact your health care provider. Examination: US abdominal aorta Indication: Follow-up aneurysm Technique: Suh scale and color Doppler images of the aorta and common iliac arteries are obtained. 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 Dictated by Mahseh Schaffer MD @ Sep 17 2023 ??1:17PM (Electronically Signed) ?? Procedure Note Mahesh Schaffer MD - 09/17/2023 For Patients: As a result of the Cures Act, medical imagingexams and procedure reports are released immediately into your electronicmedical record. You may view this report before your referring provider.If you have questions, please contact your health care provider. Examination: US abdominal aorta Indication: Follow-up aneurysm Technique: Suh scale and color Doppler images of the aorta and common iliac arteriesare obtained. 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 Dictated by Mahesh Schaffer MD @ Sep 17 2023 1:17PM (Electronically Signed) Sanya Shah MD US * SCAN-COLONOSCOPY (08/03/2022 12:00 AM CDT) Scanner OTHER * ANTI HCV (09/19/2018 7:50 AM [employer]) HEPATITIS C ANTIBODY Non-React marci Non-React marci 09/19/2018 5:17 PM [employer] [facility] Comment:Antibodies to HCV no t detected; does not exclude the possibility of exposure to HCV. Blood BLOOD SPECIMEN / Unknown Butterfly / Unknown 09/19/2018 7:50 AM [employer] 09/19/2018 7:51 AM [employer] Sanya Shah MD SEND OUTS [facility] [address] [place] [address], from Last 3 Months or Most Recently Relevant to Health Maintenance Additional Health Concerns Infection Onset Date Last Indicated MRSA Comment:Order contact precautions. 06/05/20 continue iso; patient with abscess and on antibiotics for MRSA Nares surveillance cultures needed to clear patient if <12 months since positive culture. If >12 months since positive culture, precautions can be discontinued if patient has no MRSA risk factors. #1 +MRSA 03/02/2015 Blood PCR exclusions for contact precaution discontinuation (if > 12 months since positive culture): resides in acute/skilled nursing care, receiving hemodialysis, has chronic open wounds/skin damage, has long-term percutaneous indwelling medical devices Exclusions for nares collection (if <12 months since positive culture) include all of the previous exclusions plus patients on antibiotics 7 days prior to collection 03/04/2015 03/04/2015 Advance Directives Documents on File Type Date Recorded Patient Desizing Machine Operator Expl anation Healthcare Directive * Full Code (Latest Code Status on File) Date Activated Date Inactivated Comments 06/05/2020 4:51 AM 06/12/2020 9:13 PM Question Answer Comments Code Status Discussion: Not Discussed * Full Code Date Activated Date Inactivated Comments 10/22/2017 6:33 AM 10/22/2017 11:20 AM * Full Code Date Activated Date Inactivated Comments 03/11/2015 10:24 PM 03/14/2015 7:02 PM * Full Code Date Activated Date Inactivated Comments 03/04/2015 11:18 PM 03/11/2015 10:24 PM * Full Code Date Activated Date Inactivated Comments 03/04/2015 4:44 PM 03/04/2015 11:18 PM Care Teams Statement Services Representative Relationship Specialty Start Date End Date Sanya Shah [place] [address] PCP - General Family Practice 11/05/16
--- OUTSIDE RECORDS SUMMARY | 2024-03-19 12:29 | XMS_ITS | Clinical Summary ---
Author Organization [facility] Address [address] [place] [address] Care Team Providers Care Failure Analysis Technician Name Role Phone Sanya Shah MD Primary Care Provider [phone] Source Comments You are receiving this document as you are listed as the primary care provider,follow-up provider, or the patient has been referred to you for consultation.This is in compliance with the Medicare and[facility] EHR Incentive Program,which states Providers who transition their patient to another setting of careor provider of care or refers their patient to another provider of care shouldprovide summary care record for each transition of care or referral. [facility] No known active allergies Medications Medication Sig Dispensed Refills Start Date End Date Status atorvastatin (LIPITOR) 20 MG tablet Take 1 Tablet by mouth daily. 06/17/2022 Active buPROPion (WELLBUTRIN XL) 150 MG 24 hour release tabletIndications:de pression Take 300 mg by mouth daily. 04/23/2022 Active FLUoxetine (PROZAC) 20 MG capsuleIndications:d epression Take 40 mg by mouth daily. 04/23/2022 Active gabapentin (NEURONTIN) 300 MG capsuleIndications:p ain/anxiety Take 300 mg by mouth three times a day. (Pt said he takes 300mg twice daily) Active [place]-3 Fatty Acids (FISH OIL MAXIMUM STRENGTH) 1200 MG CPDR Take 1 Capsule by mouth daily. Active oxyCODONE (ROXICODONE) 5 MG immediate release tablet Take 1 Tablet by mouth two times a day. (pt only takes as needed) 06/16/2022 Active multivitamin with minerals tablet Take 1 Tablet by mouth daily. Active rizatriptan (MAXALT) 10 MG tablet Take 10 mg by mouth as needed for Headache. at onset of migraine. May repeat in 2 hr if needed up to 30mg in 24 hr & MAX use 5 days/month Active diclofenac (VOLTAREN) 1 % gel Apply to skin three times a day as needed. To knees and ankles Active Generic Medication (USE PATIENT'S OWN MEDICATION) Resource brand sleep aid - take 2 tablets at bedtime Active Generic Medication (USE PATIENT'S OWN MEDICATION) Keto Tablet take one tablet daily for weight loss Active ibuprofen (MOTRIN) 400 MG tablet Take 1 Tablet (400 mg) by mouth every 8 hours as needed for Fever or Pain. 100 Tablet 11 07/06/2022 Active acetaminophen (TYLENOL) 325 MG tablet Take 2 Tablets (650 mg) by mouth every 6 hours as needed. 100 Tablet 11 07/06/2022 Active Active Problems Problem Noted Date Diagnosed Date Anxiety 07/03/2022 Severe episode of recurrent major depressive disorder, without psychotic features 07/03/2022 Suicidal ideation 07/03/2022 Chronic bilateral low back pain without sciatica 04/19/2019 Resolved Problems Problem Noted Date Diagnosed Date Resolved Date Thoracic spine pain 04/19/2019 07/20/20 19 Deconditioned low back 04/19/201907/20 Immunizations Name Administration Dates Next Due Moderna Monovalent 12+ 01/28/2021,12/31/2020 Social History Tobacco Use Types Packs/Day Years Used Date Smoking Tobacco: Never Assessed Sex and Gender Information Value Date Recorded Sex Assigned at Not on file Gender Identity Not on file Sexual Orientation Not on file Last Filed Vital Signs Vital Sign Reading Time Taken Comments Blood Pressure 126/81 07/06/2022 7:51 AM CDT Pulse 68 07/06/2022 7:51 AM CDT Temperature 36.8 ??C (98.3 ??F) 07/06/2022 7:51 AM CD T Respiratory Rate 16 07/06/2022 7:51 AM CDT Oxygen Saturation 98% 07/06/2022 7:51 AM CDT Inhaled Oxygen Concentration - - Weight 156.5 kg (345 lb) 07/03/2022 10:05 AM CDT Height 185 cm (6' 0.84) 07/03/2022 10:05 AM CDT Body Mass Index 45.72 07/03/2022 10:05 AM CDT Plan of Treatment Health Maintenance Due Date Last Done Comments Colon Cancer Screening Plan Due 1955 Hep C Screening (Preventive Services) 1955 Medicare Welcome Visit 1955 PSA Screening Discussion 1955 Cholesterol 01/12/1992 Pneumococcal 65+ Yrs (1 - PCV) 2022 COVID-19 Vaccine (3 - season) 2023 01/28/2021, 12/31/2020 Influenza (Season Ended) 2024 022, 08/12/2021, 07/30/2020, Additional history exists DTaP/Tdap/Td (3 - Tdap) 05/23/2030 05/23/20 20, 02/05/2011, 08/21/2005 HepA Aged Out 02/05/2011, 11/11/2005 No lo nger eligible based on patient's age to complete this topic Zoster/Shingles Completed 11/18/2018, 07/04/2018 HepB Aged Out No longer eligi ble based on patient's age to complete this topic Hib Aged Out No longer eligi ble based on patient's age to complete this topic IPV (Polio) Aged Out No longer eligi ble based on patient's age to complete this topic MCV4 Aged Out No longer eligi ble based on patient's age to complete this topic Advance Directives * Full Code (Latest Code Status on File) Date Activated Date Inactivated Comments 07/03/2022 9:53 AM 07/06/2022 3:11 PM Care Teams Failure Analysis Technician Relationship Specialty Start Date End Date Sanya Shah MD [address] [place] [address] PCP - General Family Practice 04/04/19
== END 2024-03-19 12:45 | disposition home or self-care (01) ==
LOC: ED 12:27
PROVIDERS: Emergency Provider Emergency Medicine Emergency Medical Services; PCP Family Medicine
DX: Z71.1 Person with feared health complaint in whom no diagnosis is made (principal)
CPT/HCPCS: 99282; 99283; 99284

== ENCOUNTER 2024-05-08 10:45 | Outpatient (RCR) | payer MEDICARE, SELFPAY | END 2024-06-02 08:20 | disposition home or self-care (01) | PROVIDERS: PCP Family Medicine; Visit Provider Family Medicine | DX: M79.671 Pain in right foot (principal); M25.571 Pain in right ankle and joints of right foot; Z51.89 Encounter for other specified aftercare | CPT/HCPCS: 97110; 97140; 97161 ==

== ENCOUNTER 2025-08-09 15:31 | Emergency (ER) | payer MEDICARE, SELFPAY ==
--- OUTSIDE RECORDS SUMMARY | 2025-08-09 15:33 | XMS_ITS | Clinical Summary ---
Author Organization [facility] Address [address] [place] [address] Care Team Providers Care Dog Walker Name Role Phone Sanya Shah MD Primary Care Provider [phone]- [phone] Allergies No known active allergies Medications multivitamin (MVI) tablet Take 1 tablet by mouth once daily. 0 010 Active CPAPIndications:O SA (obstructive sleep apnea) CPAP machine for home use at pressure at 10.2 cmw with a nasal mask x1/3month with nasal cushion x2/mo 1 Each 11 023 Active rizatriptan (Maxalt) 10 mg tabletIndications :Migraine syndrome Take 1 Tablet (10 mg) by mouth every 2 hours if needed for Migraine. Max dose: 30mg per 24 hrs. 15 Tablet 3 024 Active medication order composer Patient will call with update on herbal supplements that was suggested by his cheese pancake roller. Active meloxicam 15 mg tabletIndications :Arthritis of right shoulder region,Spinal stenosis of lumbar region, unspecified whether neurogenic claudication present,Arthritis of right ankle TAKE 1 TABLET (15 MG) BY MOUTH ONCE DAILY. 30 Tablet 1 025 Active amLODIPine (NORVASC) 5 mg tabletIndications :Essential hypertension TAKE 1 TABLET BY MOUTH EVERY DAY 90 Tablet 2 025 Active lisinopriL (PRINIVIL; ZESTRIL) 20 mg tabletIndications :Essential hypertension TAKE 1 TABLET BY MOUTH EVERY DAY 90 Tablet 2 025 Active oxyCODONE (ROXICODONE) 5 mg immediate release tabletIndications :Acute pain of left shoulder Take 1 Tablet (5 mg) by mouth every 6 hours if needed for Pain. 15 Tablet 025 Active celecoxib (CeleBREX) 200 mg capsuleIndication s:Arthritis Take 1 Capsule (200 mg) by mouth two times daily with meals. 60 Capsule 2 025 Active gabapentin (NEURONTIN) 300 mg capsuleIndication s:Adjustment disorder with depressed mood,Peripheral sensory neuropathy TAKE 1 CAPSULE (300 MG) BY MOUTH THREE TIMES DAILY. 270 Capsule 1 025 Active atorvastatin (LIPITOR) 20 mg tabletIndications :Mixed hyperlipidemia Take 1 Tablet (20 mg) by mouth once daily. 90 Tablet 1 025 Active atorvastatin (LIPITOR) 20 mg tabletIndications :Mixed hyperlipidemia Take 1 Tablet (20 mg) by mouth once daily. 90 Tablet 3 024 2024 Discontinued gabapentin (NEURONTIN) 300 mg capsuleIndication s:Adjustment disorder with depressed mood,Peripheral sensory neuropathy Take 1 Capsule (300 mg) by mouth three times daily. 270 Capsule 3 024 2024 Discontinued Active Problems Problem Noted Date Diagnosed Date Essential hypertension 02/23/2024 Severe episode of recurrent major depressive disorder, without psychotic features 11/24/2022 Hyperplastic colonic polyp 08/05/2022 Overview (08/05/2022): Colonoscopy 07/2022 hyperplastic polyp, some retained stool lavaged, repeat in 5 years, extra prep, propofol Dilation of thoracic aorta 06/17/2022 Overview (03/29/2025): Noted on a CT at [facility] on 06/16/2022. It was 4.2 cm dilated. Echocardiogram 05/03/2024 shows: The ascending aorta is dilated with a maximal diameter of 4.5 cm. 10. The aortic sinus is dilated with a maximal diameter of 3.[address] of coronaries 03/2025 shows: Mildly dilated aortic sinuses: 42 x 41 x 39 mm. 4. Mildly dilated ascending aorta: 40 x 41 mm. 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 Katz at [facility] recommends no prophylaxis before dental work. LUDWIN 07/27/2004 AHI43 04/13/2019 Chronic pain 06/25/2017 Vitamin D insufficiency 05/06/2016 Anticoagulation monitoring, special range 2014 S/P TKR (total knee replacement) 06/11/2015 Impaired fasting glucose 06/08/2014 Mixed hyperlipidemia 06/08/2014 Anemia, unspecified 11/19/2012 GERD (gastroesophageal reflux disease) 0 Overview (04/14/2010): Intermittent pepcid AC Tobacco abuse - H/O 04/14/2010 Overview (04/14/2010): x25 years; quit Migraine equivalent 06/06/2009 Adjustment disorder with depressed mood 06/06/20 09 Peripheral sensory neuropathy Overview (01/23/2008): intermittant, migrating Morbid obesity Resolved Problems Problem Noted Date Diagnosed Date Resolved Date MRSA (methicillin resistant staph aureus) culture positive- left septic knee 03/03/201511/05 Knee cap dislocation 09/16/2014 017 Cellulitis and abscess of leg, except foot 11/19/2012 11/05/2016 Chills with fever 11/19/2012 11/05/2016 Hypokalemia 11/19/2012 11/05/2016 Need for prophylactic vaccin ation against Hemophilus influenza type B (Hib) 07/04/20092016 Plantar fascial fibromatosis 10/20/2007 02/11/2011 Unspecified sleep apnea 04/03 Overview (01/23/2008): cpap Encounters Date Type Department Care Team Description 08/02/2025 2:22 PM CDT - 08/02/2025 11:59 PM CDT Hospital Encounter [facility] [address] [place] [address] Sanya Shah MD Guildner, Ryan, LEAD JAVA DEVELOPER ARCHITECT 08/02/2025 Travel 07/31/2025 Refill [facility] [address] [place] [address] Sanya Shah MD Refill Request (Atorvastatin) 07/26/2025 2:51 PM CDT - 07/26/2025 11:59 PM CDT Hospital Encounter [facility] [address], [place] [address] Sanya Shah MD Guildner, Ryan, LEAD JAVA DEVELOPER ARCHITECT 07/26/2025 Travel 07/19/2025 1:19 PM CDT - 07/19/2025 11:59 PM CDT Hospital Encounter [facility] [address], [place] [address] Sanya Shah MD Bailey, Lisa, PT 07/19/2025 Travel 07/13/2025 Refill [facility] [address] [place] [address] Sanya Shah MD Refill Request (Gabapentin) 07/12/2025 2:21 PM CDT - 07/12/2025 11:59 PM CDT Hospital Encounter [facility] [address] [place] [address] Sanya Shah MD Bailey, Lisa, PT 07/12/2025 Travel 07/05/2025 2:56 PM CDT - 07/05/2025 11:59 PM CDT Hospital Encounter [facility] [address], [place] [address] Sanya Shah MD Bailey, Lisa, PT 07/05/2025 Travel 06/26/2025 1:45 PM CDT - 06/26/2025 11:59 PM CDT Hospital Encounter [facility] [address] [place] [address] Ramsey Parikh MD Taylor, Brooke-Lynn, PT 06/26/2025 Travel 06/19/2025 9:05 AM CDT Office Visit [facility] [address] [place] [address] Ramsey Parikh MD Consult (Right ankle primary, and low back, Left rotator cuff.) 06/19/2025 Travel 06/14/2025 Travel 05/21/2025 Refill [facility] [address] [place] [address] Sanya Shah MD Refill Request (Amlodipine, Lisinopril) from Last 3 Months Immunizations Immunization Administration Dates Next Due COVID-19 VACCINE SPIKEVAX (M ODERNA 50MCG/0.5ML) 12YO+ PFS 07/25/2024,07/28/2023 COVID-19 vaccine (Moderna 100mcg/0.5mL) PF, MDV 01/28/2021,12/31/2020 COVID-19 vaccine (Pfizer-Bio NTech 30mcg/0.3mL) 12YO+ BIVALENT PF, MDV 06/17/2022 Hepatitis A (Adult) 02/05/2011,11/11/2005 Influenza, IIV3 (Age >=3 years) 08/15/20 13,08/23/2012,09/17/2010,2008 Influenza, IIV4 08/12/2021, 0,07/31/2019,2017,06/20/2015,08/07/2014 Influenza, IIV4 (=>6mos) MDV 06/25/2017 Influenza, Inactivated AIIV4 (Age 65+ Years) Preserv Free 07/28/2023,06/17/2022 Influenza, Inactivated IIV3 (Age 65+ Years) Preserv Free 07/25/2024 Pneumococcal Conj 20-valent (Prevnar 20) 06/17/2022 Td (Age >=7 Years) 08/21/2005 Tdap 05/23/2020,02/05/2011 Zoster (Shingrix-RZV, recombinant) 11/18/2018, Family History Medical History Relation Name Comments Other Brother 1 Amrik TBI from MVA Alcoholism Brother 2 Mark Obesity Brother 2 Mark Stroke Brother 2 Mark due to aneurysm Other Brother 3 Jsoe Chronic back fo llowing a fall Alcohol/Drug Father of alcohol ism at age 83. Heart Disease Father after 55 Cancer Mother Cervical at age 84 she . Cancer-breast Mother Diabetes Neg. 1 Cancer-colon Neg. [...] Past Smokeless Tobacco: Never Tobacco Cessation:Counseling Given: Yes Comments:smoked 4 cigs a day for 25 yrs. quit, but continues to smoke a pipe every now and then Alcohol Use Standard Drinks/Week Comments Yes 2 (1 standard drink = 0.6 oz pur e alcohol) On weekend PHQ-2 Answer Date Recorded PHQ-2 TOTAL SCORE 1 05/03/2024 Social Connections Answer Date Recorded Do you often feel lonely or isolated from those around you? 0 02/23/2025 Alcohol Use Answer Date Recorded How often do you have a drink containing alcohol ? 3 07/25/2024 How many drinks containing a lcohol do you have on a typical day when you are drinking? 0 07/25/2024 How often do you have five or more drinks on one occasion? 0 07/25/2024 Financial Resource Strain Answer Date R ecorded Difficulty of Paying Living Expenses 3 02/23/2025 Difficulty of Paying Living Expenses Not on file 02/23/2025 Food Insecurity Answer Date Recorded Do you worry your food will run out before you are able to buy more? 1 02/23/2025 Transportation Needs Answer Date Record ed Does lack of transportation keep you from medica l appointments? 1 02/23/2025 Does lack of transportation keep you from work, meetings or getting things that you need? 1 02/23/2025 Housing Stability Answer Date Recorded What is your housing situation today? 1 02/23/2025 Utilities Answer Date Recorded Do you have trouble paying f or utilities (for example, heat, electricity, water, phone)? 1 02/23/2025 Sex and Gender Information Value Date Recorded Sex Assigned at Not on file Legal Sex Male 6:14 AM ENTERTAINMENT CENTRE MANAGER Gender Identity Not on file Sexual Orientation Not on file Occupation Industry Job Start Date Job End Date Retired Not on file Not on file Not on file Obstetrics History Last Filed Vital Signs Vital Sign Reading Time Taken Comments Blood Pressure 137/88 06/19/2025 8:50 AM CDT Pulse 61 06/19/2025 8:50 AM CDT Temperature 37.1 C (98.7 F) 06/19/2025 8:50 AM CDT Respiratory Rate 24 04/21/2024 5:45 PM CDT Oxygen Saturation 100% 06/19/2025 8:50 AM CDT Inhaled Oxygen Concentration - - Weight 169.6 kg (374 lb) 06/19/2025 8:50 AM CDT Height 180.5 cm (5' 11.06) 05/03/2024 10:32 AM CDT Body Mass Index 52.07 05/03/2024 10:32 AM CDT Plan of Treatment Upcoming Encounters Date Type Department Care Team (Late st Contact Info) Description 08/16/2025 2:30 PM ENTERTAINMENT CENTRE MANAGER Appointment [facility] [address], [place] [address] Rachel Chahal, [place] [address], [place] [address] 08/23/2025 2:30 PM ENTERTAINMENT CENTRE MANAGER Appointment [facility] [address], [place] [address] Dave Pearl, LEAD JAVA DEVELOPER ARCHITECT [address] [place] [address] 08/29/2025 1:45 PM ENTERTAINMENT CENTRE MANAGER Appointment [facility] [address] [place] [address] Rachel Chahal, PT [address] [place] [address] 09/06/2025 2:30 PM ENTERTAINMENT CENTRE MANAGER Appointment [facility] [address] [place] [address] Rachel Chahal, PT [address] [place] [address] 09/11/2025 9:45 AM ENTERTAINMENT CENTRE MANAGER Office [facility] [address] [place] [address] Ramsey Parikh MD [address] [place] [address] 09/13/2025 2:30 PM ENTERTAINMENT CENTRE MANAGER Appointment [facility] [address] [place] [address] Rachel Chahal, PT [address] [place] [address] 10/09/2025 1:55 PM ENTERTAINMENT CENTRE MANAGER Office Visit [facility] [address] [place] [address] Sanya Shah MD [address] [place] [address] Health Maintenance Due Date Last Done Comments RSV vaccine for adults or (1 - Risk 60-74 years 1-dose series) 2017 BMI (ht and wt on same day) for age 18+ 05/03/2025 05/03/2024, 09/02/2023, 05/28/2023, Additional history exists Depression screening for age 12+ 05/03/2025 05/03/2024, 08/25/2023, 06/17/2022, Additional history exists Medicare Wellness for age 65+ 05/04/2025 05/03/2024, 06/17/2022 Influenza Vaccine (#1) 2025 , 07/28/2023, 06/17/2022, Additional history exists Colonoscopy through age 75 08/03/202708/03, 08/03/2022, 02/13/2011, Additional history exists Lipids for age 45-75 03/07/2029 03/07/2024, 09/24/2023, 06/03/2022, Additional history exists Tetanus booster 05/23/2030 05/23/2020, 05/0 02/2011, 08/21/2005 Hepatitis C screening for age 18-79 Completed 09/19/2018, 05/22/2013 Zoster (shingles) series for age 50+ Completed 11/18/2018, 07/04/2018 Pneumococcal series for age 50+ Completed 06/17/2022 AAA screening age 65-74 Completed 09/17/2023, 06/30 Hepatitis B series for 19+ Aged Out N o longer eligible based on patient's age to complete this topic Medical Devices Implanted Type Area Sulfonator Operator Device Identifier Shelf Expiration Date Model / Serial / Lot Cmnt Bone [place] - [id number] Implanted:Qty: 1 on 03/07/2010 at [facility] Right: Knee BIOMET [id number]# / / [id number] Cmnt Bone [place] - [id number] Implanted:Qty: 1 on 03/07/2010 at [facility] Right: Knee BIOMET [id number]# / / [id number] Fem Cr Ilok Rt 72.5 [employer]angu[employer] - [id number] Implanted:Qty: 1 on 03/07/2010 at [facility] Right: Knee BIOMET [id number]# / / [id number] Plate Tib 83mm Maxim [id number] Biomet - [id number] Implanted:Qty: 1 on 03/07/2010 at [facility] Right: Knee BIOMET 828567# / / [id number] Head Fem 09/16 28mm +8 Taper Zr - [id number] Implanted:Qty: 1 on 03/07/2010 at [facility] Right: Knee [employer] [id number]# / / [id number] Tibial Bearing Implanted:Qty: 1 on 03/07/2010 at [facility] Right: Knee [id number] / / [id number] Description:TIBIAL BEARING Compnt Fem Cr Intlk 007621 [employer] - [id number] Implanted:Qty: 1 on 04/14/2010 at [facility] Left: Knee BIOMET 777377# / / [id number] Tibial Bearing Implanted:Qty: 1 on 04/14/2010 at [facility] Left: Knee [id number] / / [id number] Description:TIBIAL BEARING Cmnt Bone [place] - [id number] Implanted:Qty: 2 on 04/14/2010 at [facility] Left: Knee BIOMET 305525# / / [id number] Plate Tib 83mm Maxim [id number] Biomet - [id number] Implanted:Qty: 1 on 04/14/2010 at [facility] Left: Knee BIOMET 441873# / / [id number] Patella Series A Std 40 3peg - [id number] Implanted:Qty: 1 on 04/14/2010 at [facility] Left: Knee BIOMET [id number]# / / [id number] Insert Tib Sz 7-8 15mm Constrained Art Josie Ii - [id number] Implanted:Qty: 1 on 09/08/2012 at [facility] Left: Knee [employer] [id number]# / / [id number] Graft Bont Pro-Dense Injectable - [id number] Implanted:Qty: 1 on 09/08/2012 at [facility] Left: Knee [employer] 87SR-0420# / / [id number] Cmnt Bone Simplex P W/Tobramycin - [id number] Implanted:Qty: 3 on 09/08/2012 at [facility] Left: Knee [employer] 6197-9-001# / / [id number] Cmnt Bone Simplex P W/Tobramycin - [id number] Implanted:Qty: 1 on 09/08/2012 at [facility] Left: Knee [employer] 6197-9-001# / / [id number] Stem Lgn Cmnt 72u914ei Stra - [id number] Implanted:Qty: 1 on 09/08/2012 at [facility] Left: Knee [employer] [id number]# / / [id number] Compnt Fem Sz 8 Lt - [id number] Implanted:Qty: 1 on 09/08/2012 at [facility] Left: Knee [employer] [id number]# / / [id number] Baseplate Tib Sz 7 Lt - [id number] Implanted:Qty: 1 on 09/08/2012 at [facility] Left: Knee [employer] [id number]# / / [id number] Stem Legion Cmnt 43q654yn Stra - [id number] Implanted:Qty: 1 on 09/08/2012 at [facility] Left: Knee [employer] [id number]# / / [id number] Tibial Wedge Implanted:Qty: 1 on 09/08/2012 at [facility] Left: Knee [id number] / / [id number] Description:TIBIAL WEDGE Tibial Wedge Implanted:Qty: 1 on 09/08/2012 at [facility] Left: Knee [id number] / / [id number] Description:TIBIAL WEDGE Sut 5 38in Force Fiber Ndl - [id number] Implanted:Qty: 1 on 09/13/2014 by Mark Katz MD at [facility] Left: Knee [employer] 01/12/2019 [id number] # / / Allograft 4x7cm Regen Graft Jacket Thick - [id number] Implanted:Qty: 1 on 09/13/2014 at [facility] Left: Knee [employer] 86UM-4X07# / / [id number] Cmnt Bone 40g Simplex P Non Atb Mv - [id number] Implanted:Qty: 2 on 03/04/2015 at [facility] Left: Knee [employer] 6191-1-010# / / [id number] Cmnt Bone 40g Simplex P Non Atb Mv - [id number] Implanted:Qty: 2 on 03/04/2015 at [facility] Left: Knee [employer] 6191-1-010# / / [id number] Explanted Type Area Sulfonator Operator Device Identifier Shelf Expiration Date Model / Serial / Lot Custom Alignment Guide Explanted:Qty: 1 on 04/14/2010 at [facility] Left: Knee [id number] / / [id number] Description:CUSTOM ALIGNMENT GUIDE Procedures Procedure Name Priority Date/Time Associated Diagnosis Comments LIPID PANEL W REFLEX MEASURED LDL Routine 03/07/2024 7:52 AM CDT Morbid obesity (HC) Body mass index 45.0-49.9, adult (HC) Essential hypertension US AORTA Routine 09/17/2023 10:39 AM ENTERTAINMENT CENTRE MANAGER Aortic aneurysm, unspecified portion of aorta, unspecified whether ruptured SCAN-COLONOSCOPY 08/03/2022 12:0 0 AM CDT ANTI HCV Routine 09/19/2018 7:50 AM ENTERTAINMENT CENTRE MANAGER Need for hepatitis C screening test from Last 3 Months or Most Recently Relevant to Health Maintenance Results * LIPID PANEL W REFLEX MEASURED LDL (03/07/2024 7:52 AM CDT) CHOLESTEROL,TOTAL 149 100 - 199 mg/dL 03/07/2024 3:20 PM CDT [facility] Comment: Cholesterol, Total Reference Ranges Desirable <200 mg/dL Borderline 200-239 mg/dL High >=240 mg/dL TRIGLYCERIDES 77 <150 mg/dL 03/07/2024 3:20 PM CDT [facility] HDL CHOLESTEROL 54 >40 mg/dL 3:20 PM CDT [facility] NON-HDL CHOLESTEROL 95 <145 mg/dl 03/07/2024 3:20 PM CDT [facility] CHOL/HDL RATIO 2.76 <4.50 03/07/2024 3:20 PM CDT [facility] LDL CHOLESTEROL 80 <=130 mg/dL 03/07/2024 3:20 PM CDT [facility] VLDL CHOLESTEROL 15 <=30 mg/dL 03/07/2024 3:20 PM CDT [facility] PROVIDER ORDERED STATUS RANDOM 03/07/2024 3:20 PM CDT [facility] Blood BLOOD SPECIMEN / Unknown Venipuncture / Unknown 03/07/2024 7:52 AM CDT 03/07/2024 7:53 AM CDT us Sanya Shah MD CHEMISTRY Final Resu lt [facility] [address] [place] [address], [place] * US AORTA (09/17/2023 10:39 AM ENTERTAINMENT CENTRE MANAGER) Anatomical Region Laterality Modality Abdomen, AORTA Ultrasound 09/17/2023 1:17 PM ENTERTAINMENT CENTRE MANAGER Narrative 09/17/2023 1:17 PM ENTERTAINMENT CENTRE MANAGER For Patients: As a result of the Cures Act, medical imaging exams and procedure reports are released immediately into your electronic medical record. You may view this report before your referring provider. If you have questions, please contact your health [...] unchanged from the prior study. Dictated by Mahesh Schaffer MD @ Sep 17 2023 1:17PM (Electronically Signed) Procedure Note Mahesh Schaffer MD - 09/17/2023 [...] @ Sep 17 2023 1:17PM (Electronically Signed) us Sanya Shah MD US Final Resu lt * SCAN-COLONOSCOPY (08/03/2022 12:00 AM CDT) us Scanner OTHER Final Result * ANTI HCV (09/19/2018 7:50 AM ENTERTAINMENT CENTRE MANAGER) HEPATITIS C ANTIBODY Non-React marci Non-React marci 09/19/2018 5:17 PM ENTERTAINMENT CENTRE MANAGER [facility] Comment:Antibodies to HCV no t detected; does not exclude the possibility of exposure to HCV. Blood BLOOD SPECIMEN / Unknown Butterfly / Unknown 09/19/2018 7:50 AM ENTERTAINMENT CENTRE MANAGER 09/19/2018 7:51 AM ENTERTAINMENT CENTRE MANAGER us Sanya Shah MD SEND OUTS Final Resu lt [facility] [address] [place] [address], [place] from Last 3 Months or Most Recently [...] 12 months since positive culture): resides in acute/care home care, receiving hemodialysis, has chronic open wounds/skin damage, has long-term percutaneous indwelling medical devices Exclusions for nares collection (if <12 months since positive culture) include all of the previous exclusions plus patients on antibiotics 7 days prior to collection 03/04/2015 03/04/2015 Insurance [facility] [employer] MEDICARE ADVANTAGE [facility] Advance Directives Documents on File Type Date Recorded Patient Bird Raiser Expl anation Healthcare Directive * Full Code [...] 4:44 PM 03/04/2015 11:18 PM Care Teams Dog Walker Relationship Specialty Start Date End Date Sanya Shah MD [place] [address] PCP - General Family Practice 11/05/16
--- OUTSIDE RECORDS SUMMARY | 2025-08-09 15:33 | XMS_ITS | Clinical Summary ---
Author Organization [facility] Address [address] [place] [address] Care Team Providers Care Mail Inserter Name Role Phone Sanya Shah MD Primary Care Provider [phone] Source Comments You are receiving this document as you are listed as the primary care provider,follow-up provider, or the patient has been referred to you for consultation.This is in compliance with the Medicare and[facility] EHR Incentive Program,which states Providers who transition their patient to another setting of careor provider of care or refers their patient to another provider of care shouldprovide summary care record for each transition of care or referral. [facility]erg[facility] No known active allergies Medications atorvastatin (LIPITOR) 20 MG tablet Take 1 Tablet by mouth daily. 06/17/2022 Active buPROPion (WELLBUTRIN XL) 150 MG 24 hour release tabletIndicatio ns:depression Take 300 mg by mouth daily. 04/23/2022 Active FLUoxetine (PROZAC) 20 MG capsuleIndicati ons:depression Take 40 mg by mouth daily. 04/23/2022 Active gabapentin (NEURONTIN) 300 MG capsuleIndicati ons:pain/anxiet y Take 300 mg by mouth three times a day. (Pt said he takes 300mg twice daily) Active Salkum-3 Fatty Acids (FISH OIL MAXIMUM STRENGTH) 1200 [...] 07/20/20 19 Deconditioned low back 04/19/201907/20 Immunizations Immunization Administration Dates Next Due Moderna Monovalent 12+ 01/28/2021,12/31/2020 Social History Tobacco Use Types Packs/Day Years Used Date Smoking Tobacco: Never Assessed Sex and Gender Information Value Date Recorded Sex Assigned at Not on file Legal Sex Male 10:49 AM CDT Gender Identity Not on file Sexual Orientation Not on file Last Filed Vital Signs Vital Sign Reading Time Taken Comments Blood Pressure 126/81 07/06/2022 7:51 AM CDT Pulse 68 07/06/2022 7:51 AM CDT Temperature 36.8 C (98.3 F) 07/06/2022 7:51 AM CDT Respiratory Rate 16 07/06/2022 7:51 AM CDT [...] PSA Screening Discussion 1955 Cholesterol 01/12/1992 Pneumococcal Vaccine 50+ Yrs (1 of 1 - PCV) 2007 COVID-19 Vaccine (3 - season) 2025 01/28/2021, 12/31/2020 Influenza Vaccine (#1) 2025 2, 08/12/2021, 07/30/2020, Additional history exists DTaP/Tdap/Td Vaccine (3 - Tdap) 05/23/2030 05/23/2020, 02/05/2011, 08/21/2005 RSV Vaccine (1 - 1-dose 75+ series) 01/12/2032 HepA Vaccine Aged Out 02/05/2011, 11/11/2005 No lo nger eligible based on patient's age to complete this topic Zoster/Shingles Vaccine Completed 11/18/2018, 07/04 HepB Vaccine Aged Out No longer eligi ble based on patient's age to complete this topic Hib Vaccine Aged Out No longer eligi ble based on patient's age to complete this topic IPV (Polio) Vaccine Aged Out No longe r eligible based on patient's age to complete this topic MCV4 Vaccine Aged Out No longer eligi ble based on patient's age to complete this topic Meningococcal B Vaccine Aged Out No l onger eligible based on patient's age to complete this topic Insurance [facility] MEDICARE ADVANTAGE Advance Directives * Full Code (Latest Code Status on File) Date Activated Date Inactivated Comments 07/03/2022 9:53 AM 07/06/2022 3:11 PM Care Teams Mail Inserter Relationship Specialty Start Date End Date Sanya [place] [place] [address] PCP - General Family Practice 04/04/19
--- NOTE | 2025-08-09 15:37 | ED.GENADULT ---
HPI - General Adult General Time Seen by Provider: 15:37 Date Seen: 08/09/25 Chief complaint: Laceration/Wound Stated complaint: laceration on fingers Time Seen by Provider: 08/09/25 15:32 Source: patient Mode of arrival: ambulatory Limitations: no limitations History of Present Illness HPI narrative: Kori is a 70 year old with hypertension, hyperlipidemia, chronic pain syndrome, GERD, osteoarthritis, obesity, presents emergency department via private car and self with finger lacerations. Patient was using a table saw, he is right-hand dominant, there was not a guard on the table saw, when the wood was caught and went through the saw and up cutting his right hand injuring the index middle and ring finger. Bleeding was controlled. Related Data Home Medications ?Medication ?Instructions ?Recorded ?Confirmed atorvastatin 20 mg tablet 20 mg PO HS 06/16/22 08/09/25 bupropion HCl 150 mg 24 hr tablet, 300 mg PO DAILY 06/16/22 08/09/25 extended release gabapentin 300 mg capsule 300 mg PO TID 06/16/22 08/09/25 multivitamin 1 tab PO DAILY 06/16/22 08/09/25 celecoxib 100 mg capsule 100 mg PO BID PRN 10/01/22 08/09/25 duloxetine 60 mg capsule,delayed 60 mg PO DAILY 12/30/22 08/09/25 release oxycodone 5 mg capsule 5 mg PO Q8H PRN 07/12/23 08/09/25 amlodipine 5 mg tablet 5 mg PO DAILY 03/19/24 08/09/25 lisinopril 20 mg tablet 20 mg PO DAILY 03/19/24 08/09/25 ondansetron HCl 4 mg tablet 4 mg PO PRN nausea 03/19/24 05/15/24 Previous Rx's ?Medication ?Instructions ?Recorded doxycycline monohydrate 100 mg 100 mg PO BID #10 caps 08/09/25 capsule Allergies Allergy/AdvReac Type Severity Reaction Status Date / Time No Known Drug Allergies Allergy Verified 08/09/25 15:39 Review of Systems Status of ROS: Reports: 10 or more systems reviewed and unremarkable except as noted in History and below [facility] Medical History Chronic pain ?G89.29 - Other chronic pain (ICD-10) Septic joint of left knee joint ?M00.9 - Pyogenic arthritis, unspecified (ICD-10) Neuralgia, neuritis, and radiculitis, unspecified Morbid obesity ?E66.01 - Morbid (severe) obesity due to excess calories (ICD-10) DJD (degenerative joint disease) ?M19.90 - Unspecified osteoarthritis, unspecified site (ICD-10) Carpal tunnel syndrome ?G56.00 - Carpal tunnel syndrome, unspecified upper limb (ICD-10) Compression fracture HLD (hyperlipidemia) ?E78.5 - Hyperlipidemia, unspecified (ICD-10) Upper respiratory infection ?J06.9 - Acute upper respiratory infection, unspecified (ICD-10) Depression ?F32.A - Depression, unspecified (ICD-10) MRSA (methicillin resistant staph aureus) culture positive ?Z22.322 - Carrier or suspected carrier of Methicillin resistant Staphylococcus aureus (ICD-10) GERD (gastroesophageal reflux disease) ?K21.9 - Gastro-esophageal reflux disease without esophagitis (ICD-10) High cholesterol ?E78.00 - Pure hypercholesterolemia, unspecified (ICD-10) Sleep apnea ?G47.30 - Sleep apnea, unspecified (ICD-10) Surgical History Status post left rotator cuff repair (11/24/22) ?Z98.890 - Other specified postprocedural states (ICD-10) Status post arthroscopy of left shoulder (10/26/22) ?Z98.890 - Other specified postprocedural states (ICD-10) History of surgery on arm ?Z98.890 - Other specified postprocedural states (ICD-10) Previous back surgery ?Z98.890 - Other specified postprocedural states (ICD-10) History of left knee replacement ?Z96.652 - Presence of left artificial knee joint (ICD-10) Status post right knee replacement ?Z96.651 - Presence of right artificial knee joint (ICD-10) History of appendectomy ?Z90.49 - Acquired absence of other specified parts of digestive tract (ICD-10) History of carpal tunnel surgery of left wrist (10/08/04) ?Z98.890 - Other specified postprocedural states (ICD-10) S/P right knee arthroscopy (06/23/06) ?Z98.890 - Other specified postprocedural states (ICD-10) S/P left knee arthroscopy (01/25/08) ?Z98.890 - Other specified postprocedural states (ICD-10) S/P ORIF (open reduction internal fixation) fracture (08/07/19) ?Z98.890 - Other specified postprocedural states (ICD-10) ?Z87.81 - Personal history of (healed) traumatic fracture (ICD-10) History of elbow surgery (02/29/20) ?Z98.890 - Other specified postprocedural states (ICD-10) Family History Mother Breast cancer Father Alcohol dependence Coronary artery disease Brother Stroke Social History Narrative: Closest family are his son Emery and daughter Sandrita. He would designate both of them is healthcare power of bankruptcy attorney. Code status is full. He drinks 3 beers per weekend. Remote history of smoking a half pack of day for 25 years. Now occasionally smokes a pipe or cigar but not every day Highest level of school completed/degree received: don't know Smoking Status: Current some day smoker What tobacco products do you use: pipe Do you use any of these nicotine containing products: Vaping Products Second hand tobacco smoke exposure: No How often do you have a drink containing alcohol: monthly or less Alcohol type: beer, wine and hard liquor How often do you have six or more drinks on one occasion: Never AUDIT-C Alcohol total score: 1 Non-prescribed substance use: denies use Caffeine: Yes (4 cups/day) service: Yes Exam Narrative: Exam Narrative: General: No obvious distress sitting comfortably HEENT: Pupils equal round reactive to light Neck: Supple Lungs: Clear Heart: Normal sinus rhythm Extremity: Right hand: 1 cm laceration to the pulp of the index finger, and a 0.5 cm laceration to the the DIP on palm side, abrasion to the pulp of the ring finger. Active extension and flexion of the PIP and the DIP. Const: Vital Signs, click to edit/add: Vital Signs - 24 hr 08/09/25 15:40 Temperature 98.6 F Pulse Rate [Pulse Oximeter] 82 Respiratory Rate 22 Blood Pressure [Ri ght Upper Arm] 130/78 Pulse Oximetry 95 Oxygen Delivery Me thod Room Air Course Course ED Course: ED course: 4:00 PM: aidet performed. Vitals are normal at this time, patient is up-to-date on his tetanus status, plan to do laceration repair please see procedure note. Based on history physical exam no tendon involvement. ED disposition pending clinical course. Reevaluation(s) Time of Reevaluation #1: 16:51 Reevaluation #1: Laceration repair complete, please see procedure note, patient tolerated procedure well, will plan to discharge he will have sutures removed by same-day clinic, urgent care primary care provider over the next 7-10 days, written instructions given. Vital Signs Vital signs: Initial Vital Signs Temperature 98.6 F 08/09/25 15:40 Temperature Source Temporal Artery Scan 08/09/25 15:40 Pulse Rate 82 08/09/25 15:40 Respiratory Rate 22 08/09/25 15:40 Blood Pressure 130/78 08/09/25 15:40 Blood Pressure Mean 95 08/09/25 15:40 Pulse Oximetry 95 08/09/25 15:40 Oxygen Delivery Method Room Air 08/09/25 15:40 Vital Signs Temperature 98.6 F 08/09/25 15:40 Pulse Rate 82 08/09/25 15:40 Respiratory Rate 22 08/09/25 15:40 Blood Pressure 130/78 08/09/25 15:40 Pulse Oximetry 95 08/09/25 15:40 Oxygen Delivery Method Room Air 08/09/25 15:40 Temperature 98.6 F 08/09/25 15:40 Pulse Rate 82 08/09/25 15:40 Respiratory Rate 22 08/09/25 15:40 Blood Pressure 130/78 08/09/25 15:40 Pulse Oximetry 95 08/09/25 15:40 Oxygen Delivery Method Room Air 08/09/25 15:40 Medications Administered Medications: Generic Name Dose Route Start Last Admin Trade Name Freq PRN Reason Stop Dose Admin Lidocaine HCl 30 ml 08/09/25 15:53 08/09/25 16:35 Lidocaine 1% Mdv INJECTION 30 ml ONCE PRN Administration Discharge Plan Discharge Clinical Impression: Finger laceration Patient Disposition: Home, Self-Care Instructions: Finger Laceration (ED) Additional Instructions: Doxycycline 100 mg tablet twice daily over the next 5-7 days, have suture removal in 7 days time primary care provider, Urgent Care or same-day clinic, keep area clean, apply bacitracin or Vaseline to the area. Any increased redness or swelling be seen by a provider. Activity Level: No Restrictions Prescriptions: New doxycycline monohydrate 100 mg capsule 100 mg PO BID Qty: 10 0RF No Action oxycodone 5 mg capsule 5 mg PO Q8H PRN atorvastatin 20 mg tablet 20 mg PO HS gabapentin 300 mg capsule 300 mg PO TID bupropion HCl 150 mg tablet extended release 24 hr 300 mg PO DAILY multivitamin Tablet 1 tab PO DAILY celecoxib 100 mg capsule 100 mg PO BID PRN duloxetine 60 mg capsule,delayed release(DR/EC) 60 mg PO DAILY lisinopril 20 mg tablet 20 mg PO DAILY ondansetron HCl 4 mg tablet 4 mg PO PRN (Reason: nausea) amlodipine 5 mg tablet 5 mg PO DAILY Follow Up/Referrals: Sanya Shah MD [Primary Care Provider, Family Practice] Stand Alone Forms: [facility] Info Instructions Procedures Laceration Laceration 1: Name of person performing procedure: Gama Boswell Site: hand Side (If applicable): right Size (cm): 4 Description: linear Depth: simple, single layer Local Anesthetic: lidocaine 1% and with bicarb Amount of anesthesia used (mL): 3 Pre-repair: wound explored Skin layer closed with: nylon Size (cm): 4-0 Number of sutures: 4 Technique: simple, interrupted
[2025-08-09 15:40] VITALS: BP 130/78; PULSE 82; RESP 22; TEMP 37; O2SAT 95; BMI 49.8
[2025-08-09] MEDS: LIDOCAINE 1% MDV 30 ML INJECTION (16:35)
== END 2025-08-09 16:58 | disposition home or self-care (01) ==
PROVIDERS: Emergency Provider Student in an Organized Health Care Education/Training Program; PCP Family Medicine
DX: S61.212A Laceration without foreign body of right middle finger without damage to nail, initial encounter (principal); S61.214A Laceration without foreign body of right ring finger without damage to nail, initial encounter; S61.210A Laceration without foreign body of right index finger without damage to nail, initial encounter; W31.2XXA Contact with powered woodworking and forming machines, initial encounter
CPT/HCPCS: 12002; 99282; 99284; J2003